=== PATIENT | female | born 1960 | race Caucasian/White ===

== ENCOUNTER 2016-08-28 15:52 | Emergency (ER) | payer MEDICARE, MEDICAID ==
--- NOTE | 2016-08-28 16:02 | ER Document Report ---
ED Medical Screen (RME) - General Stated Complaint: RIB PAIN Notes: Patient presents to the emergency department with complaints of left-sided rib pain. Patient reports she bent over last week and felt something. Since then she's had pain increasing. No other symptoms such as fever vomiting diarrhea. Reports some nausea. Reports hx of mini stroke. I have greeted and performed a rapid initial assessment of this patient. A comprehensive ED assessment and evaluation of the patient, analysis of test results and completion of the medical decision making process will be conducted by additional ED providers. TRAVEL OUTSIDE OF THE [place] IN LAST 30 DAYS: No - Related Data Allergies/Adverse Reactions: Penicillins Allergy (Mild, Verified 01/15/16 19:03) Rash aspirin [Aspirin] Allergy (Verified 01/15/16 19:03) pentazocine HCl [From Talwin Compound] Allergy (Verified 01/15/16 19:03) Tetanus Vaccines and Toxoid [Tetanus] Allergy (Verified 01/15/16 19:03) Past Medical History - Past Medical History Cardiac Medical History: Reports: Hx Hypertension Neurological Medical History: Reports: Hx Cerebrovascular Accident, Hx Migraine Endocrine Medical History: Reports: Hx Hypothyroidism Renal/ Medical History: Reports: Hx Ovarian Cysts Musculoskeltal Medical History: Reports Hx Arthritis Psychiatric Medical History: Reports: Hx Depression Past Surgical History: Reports: Hx Section, Hx Gastric Bypass Surgery, Hx Genitourinary Surgery - gastric bypass, Hx Hysterectomy - Immunizations Hx Diphtheria, Pertussis, Tetanus Vaccination: No
[2016-08-28] MEDS ORDERED: MORPHINE SULFATE 10 MG/ML INJ IV ONE (16:40)
[2016-08-28] MEDS ORDERED: FAMOTIDINE INJ/PF 20 MG/2 ML SDV IV ONE (16:40)
--- NOTE | 2016-08-28 16:44 | ER Document Report ---
ED Cardiac - General Chief Complaint: Rib Pain Stated Complaint: RIB PAIN Notes: The patient is a 56-year-old female, past medical history hypertension, gastric bypass, presents with 3 days of left lower chest wall pain and left upper quadrant abdominal pain that started after she bent over to lift a heavy object , stood up and felt a pop. She has never had this before and she says that the pain is worse when she presses the area or moves. She denies nausea, vomiting, back pain, shortness of breath, fevers, rash, leg swelling or headache. TRAVEL OUTSIDE OF THE [place] IN LAST 30 DAYS: No - Related Data Allergies/Adverse Reactions: Penicillins Allergy (Mild, Verified 01/15/16 19:03) Rash aspirin [Aspirin] Allergy (Verified 01/15/16 19:03) pentazocine HCl [From Talwin Compound] Allergy (Verified 01/15/16 19:03) Tetanus Vaccines and Toxoid [Tetanus] Allergy (Verified 01/15/16 19:03) Past Medical History - General Information source: Patient - Social History Smoking Status: Current Every Day Smoker Chew tobacco use (# tins/day): No Frequency of alcohol use: None Drug Abuse: None Family History: Arthritis, CAD, DM, Hypertension, Other - No TIAs. denies: CVA Patient has suicidal ideation: No Patient has homicidal ideation: No - Past Medical History Cardiac Medical History: Reports: Hx Hypertension Neurological Medical History: Reports: Hx Cerebrovascular Accident, Hx Migraine Endocrine Medical History: Reports: Hx Hypothyroidism Renal/ Medical History: Reports: Hx Ovarian Cysts. Denies: Hx Peritoneal Dialysis Musculoskeltal Medical History: Reports Hx Arthritis Psychiatric Medical History: Reports: Hx Depression Past Surgical History: Reports: Hx Section, Hx Gastric Bypass Surgery, Hx Genitourinary Surgery - gastric bypass, Hx Hysterectomy - Immunizations Hx Diphtheria, Pertussis, Tetanus Vaccination: No Review of Systems - Review of Systems Notes: REVIEW OF SYSTEMS: CONSTITUTIONAL: -fevers, -chills EENT: -eye pain, -difficulty swallowing, -nasal congestion CARDIOVASCULAR: +chest pain, -syncope. RESPIRATORY: -cough, -SOB GASTROINTESTINAL: +abdominal pain, -nausea, -vomiting, -diarrhea GENITOURINARY: -dysuria, -hematuria MUSCULOSKELETAL: -back pain, -neck pain SKIN: -rash or skin lesions. HEMATOLOGIC: -easy bruising or bleeding. LYMPHATIC: -swollen, enlarged glands. NEUROLOGICAL: -altered mental status or loss of consciousness, -headache, - neurologic symptoms PSYCHIATRIC: -anxiety, -depression. ALL OTHER SYSTEMS REVIEWED AND NEGATIVE. Physical Exam - Vital signs Vitals: Temp Pulse Resp BP Pulse Ox 98.4 F 103 H 20 169/82 H 96 08/28/16 15:57 08/28/16 15:57 08/28/16 15:57 08/28/16 15:57 08/28/16 15:57 - Notes Notes: PHYSICAL EXAMINATION: GENERAL: In mild distress. HEAD: Atraumatic, normocephalic. EYES: Pupils equal round and reactive to light, extraocular movements intact, sclera anicteric, conjunctiva are normal. ENT: nares patent, oropharynx clear without exudates. Moist mucous membranes. NECK: Normal range of motion, supple without lymphadenopathy LUNGS: Breath sounds clear to auscultation bilaterally and equal. No wheezes rales or rhonchi. HEART: Tenderness over left anterior lower chest wall. Regular rate and rhythm without murmurs ABDOMEN: Mild LUQ tenderness. Soft, normoactive bowel sounds. No guarding, no rebound. No masses appreciated. EXTREMITIES: Normal range of motion, no pitting or edema. No cyanosis. NEUROLOGICAL: Cranial nerves grossly intact. Normal speech, normal gait. Normal sensory, motor, and reflex exams. PSYCH: Normal mood, normal affect. SKIN: Warm, Dry, normal turgor, no rashes or lesions noted. Course - Re-evaluation Re-evalutation: Patient with left chest wall and left upper abdominal tenderness. Chest x-ray, EKG and labs are all unremarkable. 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 This is most likely chronic in nature. Primary care physician's notes indicated that he is following her for this. Patient's pain under control. We will discharge home with Lidocaine patches and f/u at her PMD. - Vital Signs Vital signs: Temp Pulse Resp BP Pulse Ox 98.4 F 103 H 20 169/82 H 96 08/28/16 15:57 08/28/16 15:57 08/28/16 15:57 08/28/16 15:57 08/28/16 15:57 - Laboratory Result Diagrams: 08/28/16 18:45 08/28/16 18:45 Laboratory results interpreted by me: 08/28/16 08/28/16 18:45 18:45 Hgb 8.8 L Hct 29.8 L MCV 68 L MCH 20.1 L MCHC 29.4 L RDW 17.6 H Chloride 109 H - EKG Interpretation by Me EKG shows normal: Sinus rhythm, [place], Intervals, QRS Complexes, ST-T Waves Discharge - Discharge Clinical Impression: Muscle strain Chest pain Qualifiers: Chest pain type: unspecified Qualified Code(s): R07.9 - Chest pain, unspecified Condition: Stable Disposition: HOME, SELF-CARE Additional Instructions: CHEST PAIN OF UNCLEAR CAUSE: The exact cause of your chest pain isn't clear. Fortunately, there is no evidence of a dangerous medical condition. Further testing may be required to find the source of the pain. Most often, we find that this pain is coming from the chest wall -- the muscles or rib joints in the chest. But chest pain can come from the lung and lung lining, the esophagus, the heart valves or heart lining, and even the stomach or gallbladder. Rest. Eat lightly until the pain is gone. We may prescribe medicine for pain and inflammation. You should call the physician immediately if the pain radiates to the shoulder, jaw or arms; if you start to run a fever or develop a cough; or if you develop shortness of breath, or other new or alarming symptoms. NORMAL EXAM AND WORKUP: At this time, your examination and workup show no significant abnormality. No significant abnormal physical findings were noted. All laboratory, EKG, and imaging (x-ray, CT scans, ultrasound) studies that were ordered show no significant abnormality. Although your examination and all studies that were ordered showed no significant abnormal finding, there are no examinations and no studies that are 100% accurate. There is always the possibility that some abnormality could exist and not be detected with physical examination or within the limits and capabilities of laboratory and other studies. You should return or follow up as you were instructed on your visit today for further evaluation if your symptoms do not resolve. CHEST WALL PAIN: Your chest pain may be coming from the chest wall. This is often caused by straining the muscles or joints in the chest during physical activity, direct trauma, coughing, or vigorous vomiting. Persons with arthritis are especially prone to this type of pain, due to inflammation of the cartilage joints near the breast bone. Occasionally, no cause can be found. Rest from strenuous physical activity. This kind of chest pain is usually made worse by movement of the chest. Depending on the symptoms, we may prescribe medicine for pain, muscle relaxation, and antiinflammatory effects. If the pain is new, and seems to be due to muscle strain, cold packs can help. Otherwise, apply gentle warmth to the painful area for 15 minutes every hour or two. You should call contact the doctor immediately if things change. Further evaluation is needed if you develop a fever or cough, if the nature of the pain changes, or if you become short of breath. ANGINA EPISODE: Your physician has diagnosed the pain you experienced as an episode of angina. Angina occurs when a portion of the heart muscle temporarily lacks oxygen. It does not cause any permanent heart damage, but serves as a warning. Hospitalization is not necessary now. Evaluation of your cardiac condition , and medical therapy for angina will be necessary. It's important you be sure to keep all appointments and take medication exactly as prescribed. Angina is usually treated with a type of "nitrate" medication. This is available as ointment, pills, or sublingual (under the tongue) tablets. Depending on your clinical situation, other medications may be added to help control angina. These may include beta blockers or calcium blockers. If episodes of angina are occurring with increased frequency, or if chest pain lasts longer than 15 minutes or does not respond to nitroglycerin, you must seek emergency medical care immediately. ACID REFLUX DISEASE (GERD): Gastro-Esophageal Reflux Disease (GERD) is caused by stomach acid refluxing back up into the esophagus. The valve at the end of the esophagus may be weak. This is common in persons with a hiatal hernia. GERD symptoms can include indigestion, chest pain, heartburn, or food "sticking." Certain foods, alcohol, and aspirin can make GERD worse. Treatment depends on the severity. Usually, antacids or acid-suppressing medicines are used. When the esophagus is acutely inflamed, the physician will often prescribe membrane-protective drugs such as Carafate. Some patients benefit from medication such as Reglan that tightens the valve at the top of the stomach. Avoid those foods that bring on your symptoms. For many people, these foods are coffee, chocolate, onions, garlic, and carbonated drinks. Don't use alcohol, aspirin, caffeine, or tobacco. Don't eat late at night -- within 4 hours of bedtime. Don't over-eat. If necessary, elevate the head of your bed about 4 inches so that stomach acid will not roll up into your esophagus. Call the doctor if you develop severe chest pain, inability to swallow fluids, fever, or worsening symptoms. PRILOSEC (ACID PUMP INHIBITOR): Prilosec (omeprazole) is an acid-pump inhibitor. It blocks the secretion of hydrogen ions in the acid-producing cells of the stomach. Prilosec keeps your stomach from making acid. Take all medication as prescribed, even after the pain is gone. Regular antacids may be added as needed if you have symptoms while taking this medicine. There are usually no side effects from this medication. Contact your doctor if there is fever, rash, yellow skin color, increasing abdominal pain, weakness, or unusual bruising. Return at once if you develop lightheadedness, black or bloody stool, or bloody vomitus. FOLLOW-UP CARE: If you have been referred to a physician for follow-up care, call the physician s office for an appointment as you were instructed or within the next two days. If you experience worsening or a significant change in your symptoms, notify the physician immediately or return to the Emergency Department at any time for re-evaluation. Prescriptions: Lidocaine [Lidoderm 5% (700 mg) Transdermal Patch] 1 patch TP DAILY #10 adh..patch Forms: Elevated Blood Pressure Referrals: NO JERONIMO MD [Primary Care Provider] - Follow up as needed
[2016-08-28 18:58] LABS: ABSOLUTE EOSINOPHILS # (AUTO) 0.1 10^3/uL (0.0-0.6); ABSOLUTE LYMPHOCYTES (AUTO) 1.6 10^3/uL (0.5-4.7); ABSOLUTE MONOCYTES (AUTO) 0.5 10^3/uL (0.1-1.4); ABSOLUTE NEUT (AUTO) 4.9 10^3/uL (1.7-8.2); BASOPHILS % (AUTO) 0.5 % (0-2); EOSINOPHILS % (AUTO) 1.1 % (0-6); HEMATOCRIT 29.8 % (36.0-47.0); HEMOGLOBIN 8.8 g/dL (12.0-15.5); HGB HCT DIFFERENCE -3.4; LYMPHOCYTES % (AUTO) 22.3 % (13-45); MEAN CORPUSCULAR HEMOGLOBIN 20.1 pg (27.0-33.4); MEAN CORPUSCULAR HGB CONC 29.4 g/dL (32.0-36.0); MEAN CORPUSCULAR VOLUME 68 fl (80-97); RED BLOOD COUNT 4.37 10^6/uL (3.72-5.28); RED CELL DISTRIBUTION WIDTH 17.6 % (11.5-14.0); SEGMENTED NEUTROPHILS % (AUTO) 69.1 % (42-78); WHITE BLOOD COUNT 7.2 10^3/uL (4.0-10.5)
[2016-08-28 19:14] LABS: ALANINE AMINOTRANSFERASE 20 U/L (9-52); ALKALINE PHOSPHATASE 115 U/L (38-126); ANION GAP 8 (5-19); ASPARTATE AMINO TRANSFERASE 19 U/L (14-36); BILIRUBIN,TOTAL 0.3 mg/dL (0.2-1.3); BLOOD UREA NITROGEN 15 mg/dL (7-20); CALCIUM 9.3 mg/dL (8.4-10.2); CARBON DIOXIDE 24 mmol/L (22-30); CHLORIDE 109 mmol/L (98-107); CREATINE KINASE 60 U/L (30-135); CREATININE RESULT 0.85 mg/dL (0.52-1.25); GLUCOSE 79 mg/dL (75-110); LIPASE 101.9 U/L (23-300); POTASSIUM 4.6 mmol/L (3.6-5.0); SODIUM 141.2 mmol/L (137-145); TOTAL PROTEIN 6.8 g/dL (6.3-8.2)
--- NOTE | 2016-08-28 21:33 | EKG REPORT ---
SEVERITY:- NORMAL ECG - SINUS RHYTHM : Confirmed by: Estrada Gonzalez 28-Aug-2016 21:32:37
[2016-08-28 22:46] VITALS: BP 156/88
== END 2016-08-28 20:01 | disposition home or self-care (01) ==
LOC: ER 15:52
DX: S29.011A Strain of muscle and tendon of front wall of thorax, initial encounter (principal); R07.81 Pleurodynia; X50.0XXA Overexertion from strenuous movement or load, initial encounter; I10 Essential (primary) hypertension; E03.9 Hypothyroidism, unspecified; Z86.73 Personal history of transient ischemic attack (TIA), and cerebral infarction without residual deficits; Z98.84 Bariatric surgery status; Z90.710 Acquired absence of both cervix and uterus; Z88.0 Allergy status to penicillin; Z88.6 Allergy status to analgesic agent; Z88.7 Allergy status to serum and vaccine
CPT/HCPCS: 93005; 99283; 36415; 82550; 83690; 85025; 80053; 84484; 71101; 93010; J2270; S0028

== ENCOUNTER 2016-09-28 20:31 | Emergency (ER) | payer MEDICARE, MEDICAID ==
[2016-09-28] MEDS ORDERED: HYDROCODONE/ACETAMINOPHEN 5-325 MG 6 TAB/DSPK PO PRN (23:38)
--- NOTE | 2016-09-28 23:39 | ER Document Report ---
ED General - General Chief Complaint: Rib Pain Stated Complaint: LEFT SIDE RIB PAIN Notes: Patient is a pleasant 56-year-old female who presents with complaint of pain over her left ribs. Patient says first dose of pain several days ago which picked up her granddaughter. She continued to ER and evaluate. Pain went away. Tonight she was lying with her daughter. She felt a pop over her left ribs. She was unsure what the pop was therefore came to the ER. No fevers. No pneumonia. No difficulty breathing. No other complaints at this time. No abdominal pain. TRAVEL OUTSIDE OF THE [place] IN LAST 30 DAYS: No - Related Data Allergies/Adverse Reactions: Penicillins Allergy (Mild, Verified 01/15/16 19:03) Rash aspirin [Aspirin] Allergy (Verified 01/15/16 19:03) pentazocine HCl [From Talwin Compound] Allergy (Verified 01/15/16 19:03) Tetanus Vaccines and Toxoid [Tetanus] Allergy (Verified 01/15/16 19:03) Past Medical History - Social History Smoking Status: Unknown if Ever Smoked Frequency of alcohol use: None Drug Abuse: None Family History: Arthritis, CAD, DM, Hypertension, Other - No TIAs. denies: CVA Patient has suicidal ideation: No Patient has homicidal ideation: No - Past Medical History Cardiac Medical History: Reports: Hx Hypertension Neurological Medical History: Reports: Hx Cerebrovascular Accident, Hx Migraine Endocrine Medical History: Reports: Hx Hypothyroidism Renal/ Medical History: Reports: Hx Ovarian Cysts. Denies: Hx Peritoneal Dialysis Musculoskeltal Medical History: Reports Hx Arthritis Psychiatric Medical History: Reports: Hx Depression Past Surgical History: Reports: Hx Section, Hx Gastric Bypass Surgery, Hx Genitourinary Surgery - gastric bypass, Hx Hysterectomy - Immunizations Hx Diphtheria, Pertussis, Tetanus Vaccination: No Review of Systems - Review of Systems Notes: My Normal Review Basic REVIEW OF SYSTEMS: CONSTITUTIONAL : Denies fever, chills, or sweats. Denies recent illness. EENT: Denies eye, ear, throat, or mouth pain or symptoms. Denies nasal or sinus congestion. CARDIOVASCULAR: Left rib pain. No anterior chest pain RESPIRATORY: Denies cough, cold, or chest congestion. Denies shortness of breath, difficulty breathing, or wheezing. GASTROINTESTINAL: Denies abdominal pain. Denies nausea, vomiting, or diarrhea. Denies constipation. Last BM: MUSCULOSKELETAL: Denies neck or back pain or joint pain or swelling. SKIN: Denies rash or skin lesions. HEMATOLOGIC : Denies easy bruising or bleeding. NEUROLOGICAL: Denies altered mental status or loss of consciousness. ALL OTHER SYSTEMS REVIEWED AND NEGATIVE. Physical Exam - Vital signs Vitals: Temp Pulse BP Pulse Ox 99.0 F 87 133/86 H 99 09/28/16 20:48 09/28/16 20:48 09/28/16 20:48 09/28/16 20:48 - Notes Notes: General Appearance: Well nourished, alert, cooperative, no acute distress, mild to moderate obvious discomfort. Well-appearing. Vitals: reviewed, See vital signs table. Eyes: PERRL, EOMI, Conjuctiva clear Mouth: No decreasd moisture Lungs: No wheezing, No rales, No rhonci, No accessory muscle use, good air exchange bilaterally. Chest wall: Patient has very pinpoint tenderness over the left lateral chest wall over approximately rib 10. There is very easily reproducible with palpation as well as movement. Heart: Normal rate, Regular rythm, No murmur, no rub Abdomen: Normal BS, soft, No rigidity, No abdominal tenderness, No guarding, no rebound, no abdominal masses, no organomegaly Skin: warm, dry, appropriate color, no rash Neuro: speech clear, oriented x 3, normal affect, responds appropriately to questions. Course - Vital Signs Vital signs: Temp Pulse Resp BP Pulse Ox 97.6 F 70 18 143/85 H 99 09/29/16 00:33 09/29/16 00:33 09/29/16 00:33 09/29/16 00:33 09/29/16 00:33 - Transfer of Care Notes: 09/29/16 04:41 Patient has history and findings consistent with recurrent subluxation of her rib. She will be be given an incentive spirometer to help make sure she is not of pneumonia. She's encouraged take pain patient only if the pain is severe. She's encouraged to return to ER immediately if she has fevers, difficulty breathing, or feels unwell. Patient agrees with plan and will be discharged home. Dictation of this chart was performed using voice recognition software; therefore, there may be some unintended grammatical errors. Discharge - Discharge Clinical Impression: Rib pain on left side Condition: Good Disposition: HOME, SELF-CARE Instructions: Oral Narcotic Medication ([facility]) Additional Instructions: Rib Injuries and Fractures You have been diagnosed as having rib injury. It will usually take four to six weeks for these injured ribs to heal. Sometimes, rib belts or anesthetic injections of the chest wall help reduce the pain. If you are using a rib belt, you should cough or take a deep breath at least every hour or two to prevent lung complications. You should not engage in any strenuous physical activity until released by your physician. The usual rule is "if it hurts, don't do it." Rib pain can lead to pneumonia. You should call the physician or return at once if any of the following occur: (1) Fever or chills. (2) Persistent cough, coughing up blood, or shortness of breath. (3) Increasing pain. (4) Weakness, lightheadedness, or fainting. Please use the incentive spirometer to take in deep breaths every 30 minutes. Please return to the ER immediately if you have fevers, difficulty breathing, or feel unwell. Prescriptions: Hydrocodone/Acetaminophen [[place] 5-325 mg Tablet] 1 tab PO Q4 PRN #12 tablet PRN Reason: For Breakthrough Pain Forms: Return to Work
[2016-09-29 00:35] VITALS: BP 143/85
== END 2016-09-28 23:50 | disposition home or self-care (01) ==
LOC: ER 20:31
DX: R07.81 Pleurodynia (principal); E03.9 Hypothyroidism, unspecified; I10 Essential (primary) hypertension; Z88.0 Allergy status to penicillin; Z88.6 Allergy status to analgesic agent; Z88.7 Allergy status to serum and vaccine; Z86.73 Personal history of transient ischemic attack (TIA), and cerebral infarction without residual deficits; Z98.84 Bariatric surgery status; Z90.710 Acquired absence of both cervix and uterus
CPT/HCPCS: 99283; 71101; A9270

== ENCOUNTER 2017-01-25 14:31 | Emergency (ER) | payer MEDICARE, MEDICAID ==
[2017-01-25 14:40] VITALS: BP 144/88
--- NOTE | 2017-01-25 15:17 | ER Document Report ---
ED Medical Screen (RME) - General Chief Complaint: Arm Pain Stated Complaint: LEFT ARM PAIN Time Seen by Provider: 01/25/17 15:16 Notes: Patient says that she suddenly experienced a "heaviness and numbness" of the left upper arm about an hour ago. She was just sitting when it happened. She says that she is able to move the arm and does not have any loss of function, just feels numb and heavy. Patient says that she has had this problem off and on for the past month and in fact, had some problems like this about 3 or 4 years ago and was worked up including having what she describes as an ultrasound of the neck that showed the problem. However, nothing was ever done for this condition. She denies any chest pains. Denies shortness of breath. Denies fevers. PMH: Gastric bypass 2000, hysterectomy, hemorrhoids, hypertension, anemia, no heart disease. TRAVEL OUTSIDE OF THE [place] IN LAST 30 DAYS: No - Related Data Allergies/Adverse Reactions: Penicillins Allergy (Mild, Verified 01/25/17 14:37) Rash aspirin [Aspirin] Allergy (Verified 01/25/17 14:37) pentazocine HCl [From Talwin Compound] Allergy (Verified 01/25/17 14:37) Tetanus Vaccines and Toxoid [Tetanus] Allergy (Verified 01/25/17 14:37) Past Medical History - Social History Chew tobacco use (# tins/day): No Frequency of alcohol use: None Drug Abuse: None - Past Medical History Cardiac Medical History: Reports: Hx Hypertension Neurological Medical History: Reports: Hx Cerebrovascular Accident, Hx Migraine Endocrine Medical History: Reports: Hx Hypothyroidism Renal/ Medical History: Reports: Hx Ovarian Cysts. Denies: Hx Peritoneal Dialysis Musculoskeltal Medical History: Reports Hx Arthritis Psychiatric Medical History: Reports: Hx Depression Past Surgical History: Reports: Hx Section, Hx Gastric Bypass Surgery, Hx Genitourinary Surgery - gastric bypass, Hx Hysterectomy - Immunizations Hx Diphtheria, Pertussis, Tetanus Vaccination: No Physical Exam - Vital signs Vitals: Temp Pulse Resp BP Pulse Ox 98.5 F 85 22 H 144/88 H 99 01/25/17 14:37 01/25/17 14:37 01/25/17 14:37 01/25/17 14:37 01/25/17 14:37 Course - Vital Signs Vital signs: Temp Pulse Resp BP Pulse Ox 98.5 F 85 22 H 144/88 H 99 01/25/17 14:37 01/25/17 14:37 01/25/17 14:37 01/25/17 14:37 01/25/17 14:37
--- NOTE | 2017-01-25 16:06 | RADIOLOGY REPORT (SQ) ---
EXAM DESCRIPTION: CHEST PA/LAT COMPLETED DATE/TIME: 01/25/2017 3:56 pm REASON FOR STUDY: Left arm pain COMPARISON: None. EXAM PARAMETERS: NUMBER OF VIEWS: two views TECHNIQUE: Digital Frontal and Lateral radiographic views of the chest acquired. RADIATION DOSE: NA LIMITATIONS: none FINDINGS: LUNGS AND PLEURA: No opacities, masses or pneumothorax. No pleural effusion. There is ill -defined increased density in the left lower hemithorax which appears represent confluent densities o f overlapping ribs and vascular structures. A shallow oblique view of the chest is recommended for c onfirmation if clinically warranted MEDIASTINUM AND HILAR STRUCTURES: No masses or contour abnormalities. HEART AND VASCULAR STRUCTURES: Heart normal size. No evidence for failure. BONES: No acute findings. HARDWARE: None in the chest. OTHER: No other significant finding. IMPRESSION: Ill-defined increased density in the left lower hemithorax is noted above which appears to represent confluent densities as noted above. No acute consolidations or pleural effusions are id entified. Other findings as noted above TECHNICAL DOCUMENTATION: JOB ID: [id number] [employer]- All Rights Reserved
[2017-01-25 16:07] LABS: ABSOLUTE BASOPHILS # (AUTO) 0.1 10^3/uL (0.0-0.2); ABSOLUTE EOSINOPHILS # (AUTO) 0.1 10^3/uL (0.0-0.6); ABSOLUTE LYMPHOCYTES (AUTO) 1.8 10^3/uL (0.5-4.7); ABSOLUTE MONOCYTES (AUTO) 0.5 10^3/uL (0.1-1.4); ABSOLUTE NEUT (AUTO) 4.8 10^3/uL (1.7-8.2); BASOPHILS % (AUTO) 0.9 % (0-2); EOSINOPHILS % (AUTO) 1.7 % (0-6); HEMATOCRIT 36.3 % (36.0-47.0); HEMOGLOBIN 10.9 g/dL (12.0-15.5); HGB HCT DIFFERENCE -3.6; LYMPHOCYTES % (AUTO) 24.6 % (13-45); MEAN CORPUSCULAR HEMOGLOBIN 21.5 pg (27.0-33.4); MEAN CORPUSCULAR HGB CONC 29.9 g/dL (32.0-36.0); MEAN CORPUSCULAR VOLUME 72 fl (80-97); MONOCYTES % (AUTO) 6.2 % (3-13); RED BLOOD COUNT 5.06 10^6/uL (3.72-5.28); RED CELL DISTRIBUTION WIDTH 20.1 % (11.5-14.0); SEGMENTED NEUTROPHILS % (AUTO) 66.6 % (42-78); WHITE BLOOD COUNT 7.3 10^3/uL (4.0-10.5)
[2017-01-25 16:24] LABS: ALANINE AMINOTRANSFERASE 24 U/L (9-52); ALBUMIN 4.9 g/dL (3.5-5.0); ALKALINE PHOSPHATASE 96 U/L (38-126); ANION GAP 14 (5-19); ASPARTATE AMINO TRANSFERASE 38 U/L (14-36); BILIRUBIN,DIRECT 0.5 mg/dL (0.0-0.4); BILIRUBIN,TOTAL 0.5 mg/dL (0.2-1.3); BLOOD UREA NITROGEN 17 mg/dL (7-20); CALCIUM 9.6 mg/dL (8.4-10.2); CARBON DIOXIDE 25 mmol/L (22-30); CHLORIDE 102 mmol/L (98-107); CREATINE KINASE 120 U/L (30-135); CREATININE RESULT 0.92 mg/dL (0.52-1.25); GLUCOSE 94 mg/dL (75-110); POTASSIUM 3.9 mmol/L (3.6-5.0); SODIUM 140.5 mmol/L (137-145); TOTAL PROTEIN 8.4 g/dL (6.3-8.2)
[2017-01-25 16:35] LABS: CREATINE KINASE MB 0.91 ng/mL (<4.55)
[2017-01-25 16:36] LABS: TROPONIN I < 0.012 ng/mL
--- NOTE | 2017-01-25 17:25 | ER Document Report ---
ED Extremity Problem, Upper - General Mode of Arrival: Ambulatory Information source: Patient TRAVEL OUTSIDE OF THE [place] IN LAST 30 DAYS: No - HPI Patient complains to provider of: Left, Arm. No: Pain Quality of pain: No pain Associated symptoms: Other - see above <AMBREEN GONZALES - Last Filed: 01/25/17 17:47> <ANAT BUCHANAN - Last Filed: 01/25/17 19:40> - General Chief Complaint: Arm Pain Stated Complaint: LEFT ARM PAIN Time Seen by Provider: 01/25/17 15:16 Notes: Patient is a 57 year old female who presents to the ED with complaints of left arm numbness with onset a few months. Patient denies difficulty moving it. Patient states sometimes she has to pick it up to move it because it is heavy feeling. Patient states nothing is new today. Patient states that she has a PCP but she has not talked to him about this problem. Patient states that her arm does not hurt. Patient states she does have pain in her back and she was told by a doctor that she has scoliosis. Patient denies any shoulder pain. (AMBREEN GONZALES) - Related Data Allergies/Adverse Reactions: Penicillins Allergy (Mild, Verified 01/25/17 14:37) Rash aspirin [Aspirin] Allergy (Verified 01/25/17 14:37) pentazocine HCl [From Talwin Compound] Allergy (Verified 01/25/17 14:37) Tetanus Vaccines and Toxoid [Tetanus] Allergy (Verified 01/25/17 14:37) Home Medications: Current Home Medications Clonidine HCl 0.1 mg PO BID 01/25/17 [History] Losartan/Hydrochlorothiazide [Hyzaar 100-25 Tablet] 1 tab PO DAILY 01/25/17 [ History] Past Medical History - General Information source: Patient - Social History Smoking Status: Current Every Day Smoker Chew tobacco use (# tins/day): No Frequency of alcohol use: None Drug Abuse: None Family History: Arthritis, CAD, DM, Hypertension, Other - No TIAs. denies: CVA Patient has suicidal ideation: No Patient has homicidal ideation: No - Past Medical History Cardiac Medical History: Reports: Hx Hypertension Neurological Medical History: Reports: Hx Cerebrovascular Accident, Hx Migraine Endocrine Medical History: Reports: Hx Hypothyroidism Renal/ Medical History: Reports: Hx Ovarian Cysts. Denies: Hx Peritoneal Dialysis Musculoskeltal Medical History: Reports Hx Arthritis Psychiatric Medical History: Reports: Hx Depression Past Surgical History: Reports: Hx Section, Hx Gastric Bypass Surgery, Hx Genitourinary Surgery - gastric bypass, Hx Hysterectomy - Immunizations Hx Diphtheria, Pertussis, Tetanus Vaccination: No <CHRISTIANAMBREEN - Last Filed: 01/25/17 17:47> Review of Systems - Review of Systems Constitutional: No symptoms reported EENT: No symptoms reported Cardiovascular: No symptoms reported Respiratory: No symptoms reported Gastrointestinal: No symptoms reported Genitourinary: No symptoms reported Female Genitourinary: No symptoms reported Musculoskeletal: See HPI, Back pain. denies: Other - no pain in left arm or shoulder Skin: No symptoms reported Hematologic/Lymphatic: No symptoms reported Neurological/Psychological: See HPI, Numbness - left arm <AMBREEN GONZALES - Last Filed: 01/25/17 17:47> Physical Exam - General General appearance: Appears well, Alert In distress: None - HEENT Head: Normocephalic, Atraumatic Eyes: Normal Extraocular movements intact: Yes Pupils: PERRL - Respiratory Respiratory status: No respiratory distress Breath sounds: Normal - Cardiovascular Rhythm: Regular Heart sounds: Normal auscultation Murmur: No - Abdominal Inspection: Normal - Back Back: Normal - Extremities General upper extremity: Normal ROM, Normal strength, Other - altered light touch to posterior left tricep area, reproducible symptoms by palpation of left axilla General lower extremity: Normal inspection, Normal ROM - Neurological Neuro grossly intact: Yes Motor strength normal: LUE, RUE - Psychological Associated symptoms: Normal affect, Normal mood - Skin Skin Temperature: Warm Skin Moisture: Dry Skin Color: Normal <AMBREEN GONZALES - Last Filed: 01/25/17 17:47> Course - Laboratory Result Diagrams: 01/25/17 15:39 01/25/17 15:39 <AMBREEN GONZALES - Last Filed: 01/25/17 17:47> - Laboratory Result Diagrams: 01/25/17 15:39 01/25/17 15:39 - Diagnostic Test Radiology reviewed: Reports reviewed - EKG Interpretation by Nd EKG shows normal: Sinus rhythm Rate: Normal Rhythm: NSR <ANAT BUCHANAN - Last Filed: 01/25/17 19:40> - Re-evaluation Re-evalutation: 01/25/17 Has had the symptoms for a few months. They are not worse today. Reproducible. No weakness. No other symptoms associated. I have looked back at the patient's workup. MRI with no acute findings previously. Patient is to follow-up with her doctor who if she is not informed of her symptoms. Stable for discharge. Return if any worsening or concerning symptoms. (ANAT BUCHANAN) - Vital Signs Vital signs: Temp Pulse Resp BP Pulse Ox 98.5 F 85 22 H 144/88 H 99 01/25/17 14:37 01/25/17 14:37 01/25/17 14:37 01/25/17 14:37 01/25/17 14:37 - Laboratory Laboratory results interpreted by me: 01/25/17 01/25/17 15:39 15:39 Hgb 10.9 L MCV 72 L MCH 21.5 L MCHC 29.9 L RDW 20.1 H Direct Bilirubin 0.5 H AST 38 H Total Protein 8.4 H Discharge <AMBREEN GONZALES - Last Filed: 01/25/17 17:47> <ANAT BUCHANAN - Last Filed: 01/25/17 19:40> - Discharge Clinical Impression: Paresthesia of left arm Condition: Stable Disposition: HOME, SELF-CARE Instructions: Numbness or Paresthesia ([facility]) Additional Instructions: Please discussed with sensation you are having with your primary care doctor as it appears to be a peripheral neuropathy. Please return if you have any concerning symptoms or weakness. Forms: Return to Work Referrals: NO JERONIMO MD [Primary Care Provider] - Follow up in 1 week Scribe Attestation: 01/25/17 19:40 I personally performed the services described in the documentation, reviewed and edited the documentation which was dictated to the scribe in my presence, and it accurately records my words and actions. (ANAT BUCHANAN) Scribe Documentation - Scribe Written by Jose R:: jose r Stiles, 01/25/2017, [id number] acting as scribe for :: Kassidy <AMBREEN GONZALES - Last Filed: 01/25/17 17:47>
--- NOTE | 2017-01-26 12:50 | EKG REPORT ---
SEVERITY:- BORDERLINE ECG - SINUS RHYTHM BORDERLINE T ABNORMALITIES, LATERAL LEADS : Confirmed by: Estrada Gonzalez 26-Jan-2017 12:48:40
== END 2017-01-25 18:04 | disposition home or self-care (01) ==
LOC: ER 14:31
DX: R20.0 Anesthesia of skin (principal); M54.9 Dorsalgia, unspecified; I10 Essential (primary) hypertension; F17.200 Nicotine dependence, unspecified, uncomplicated; Z88.0 Allergy status to penicillin; Z88.6 Allergy status to analgesic agent; Z88.5 Allergy status to narcotic agent; Z88.7 Allergy status to serum and vaccine; Z82.49 Family history of ischemic heart disease and other diseases of the circulatory system
CPT/HCPCS: 36415; 71020; 80053; 82550; 82553; 84484; 85025; 93005; 93010; 99284

== ENCOUNTER 2017-06-27 14:34 | Emergency (ER) | payer MEDICARE, MEDICAID ==
--- NOTE | 2017-06-27 16:23 | ER Document Report ---
HPI - HPI Patient complains to provider of: skin rash Onset: Other - 5 days Onset/Duration: Persistent Quality of pain: No pain Pain Level: Denies Context: Patient presents with 5 day history of skin rash that is pruritic in nature. Patient denies any new foods, medications or detergents. Patient denies any recent travel. Patient denies any fever. Associated Symptoms: Other - skin rash Exacerbated by: Denies Relieved by: Denies Similar symptoms previously: No Recently seen / treated by doctor: No - ROS ROS below otherwise negative: Yes Systems Reviewed and Negative: Yes All other systems reviewed and negative - CONSTITUTIONAL Constitutional: DENIES: Fever, Chills - NEURO Neurology: DENIES: Headache - GASTROINTESTINAL Gastrointestinal: DENIES: Nausea, Patient vomiting - REPRODUCTIVE Reproductive: DENIES: : - DERM Skin Problems: Rash Past Medical History - General Information source: Patient - Social History Smoking Status: Current Every Day Smoker Chew tobacco use (# tins/day): No Smoking Education Provided: Yes Frequency of alcohol use: None Drug Abuse: None Occupation: retail Lives with: Family Family History: Arthritis, CAD, DM, Hypertension, Other - No TIAs. denies: CVA Patient has suicidal ideation: No Patient has homicidal ideation: No - Past Medical History Cardiac Medical History: Reports: Hx Hypertension Neurological Medical History: Reports: Hx Cerebrovascular Accident, Hx Migraine Endocrine Medical History: Reports: Hx Hypothyroidism Renal/ Medical History: Reports: Hx Ovarian Cysts. Denies: Hx Peritoneal Dialysis Musculoskeltal Medical History: Reports Hx Arthritis Psychiatric Medical History: Reports: Hx Depression Past Surgical History: Reports: Hx Section, Hx Gastric Bypass Surgery, Hx Genitourinary Surgery - gastric bypass, Hx Hysterectomy - Immunizations Hx Diphtheria, Pertussis, Tetanus Vaccination: No Vertical Provider Document - CONSTITUTIONAL Agree With Documented VS: Yes Exam Limitations: No Limitations General Appearance: WD/WN, No Apparent Distress - INFECTION CONTROL TRAVEL OUTSIDE OF THE [place] IN LAST 30 DAYS: No - HEENT HEENT: Atraumatic, Normal ENT Exam, Normocephalic - NECK Neck: Normal Inspection, Supple. negative: Lymphadenopathy-Left, Lymphadenopathy-Right - RESPIRATORY Respiratory: Breath Sounds Normal, No Respiratory Distress O2 Sat by Pulse Oximetry: 98 - CARDIOVASCULAR Cardiovascular: Regular Rate, Regular Rhythm, No Murmur - BACK Back: Normal Inspection - MUSCULOSKELETAL/EXTREMETIES Musculoskeletal/Extremeties: MAEW - NEURO Level of Consciousness: Awake, Alert, Appropriate Motor/Sensory: No Motor Deficit - DERM Integumentary: Warm, Dry, Rash - Patient with excoriated mildly erythematous rash distributed to trunk and extremities, increased concentration to waistband area, wrist and ankles Course - Re-evaluation Re-evalutation: 06/27/17 16:21 Smoking cessation handout given to patient. - Vital Signs Vital signs: Temp Pulse Resp BP Pulse Ox 98.2 F 82 18 143/77 H 98 06/27/17 15:07 06/27/17 15:07 06/27/17 15:07 06/27/17 15:07 06/27/17 15:07 Discharge - Discharge Clinical Impression: Hx of essential hypertension, Skin rash Condition: Stable Disposition: HOME, SELF-CARE Instructions: Antihistamines ([facility]), Scabies ([facility]) Additional Instructions: Return immediately for any new or worsening symptoms Followup with your primary care provider, call tomorrow to make a followup appointment Follow-up with dermatology for any continued problems Prescriptions: Hydroxyzine HCl [Atarax 25 mg Tablet] 1 - 2 tab PO QID PRN #15 tablet PRN Reason: Permethrin [Elimite] 60 gm TP ONCE #60 gm Forms: Elevated Blood Pressure, Smoking Cessation Education, Return to Work Referrals: NO JERONIMO MD [Primary Care Provider] - Follow up tomorrow VAMSHI DAVISON DO [ACTIVE STAFF] - Follow up as needed
[2017-06-27 17:34] VITALS: BP 131/83
== END 2017-06-27 17:56 | disposition home or self-care (01) ==
LOC: ER 14:34
DX: R21 Rash and other nonspecific skin eruption (principal); L29.8 Other pruritus; I10 Essential (primary) hypertension; F17.200 Nicotine dependence, unspecified, uncomplicated; Z71.6 Tobacco abuse counseling
CPT/HCPCS: 99282

== ENCOUNTER 2018-01-08 16:36 | Emergency (ER) | payer MEDICARE, MEDICAID ==
--- NOTE | 2018-01-08 18:57 | ER Document Report ---
ED Medical Screen (RME) - General Chief Complaint: Dizziness Stated Complaint: WEAKNESS Time Seen by Provider: 01/08/18 18:51 TRAVEL OUTSIDE OF THE [place] IN LAST 30 DAYS: No - HPI Notes: 01/08/18 18:54 Patient is a 58-year-old female with a history of chronic anemia and hypertension who presents to the ED complaining of feeling lightheaded and dizzy 3 weeks. Patient states that her dizziness is associated when she stands from a seated position and resolves after she has been standing for about a minute. Patient states that she has been eating and drinking without any difficulties. She has been urinating normally and having normal bowel movements. Patient reports having a colonoscopy 3 months ago that was unremarkable and an endoscopy performed last year which was also unremarkable. Patient states that she did need a transfusion 2 years ago but does not know exactly why after having evaluations performed. Denies any headache, fever, neck pain, changes in vision/speech/mentation/hearing, URI, sore throat, chest pain, palpitations, syncope, cough, shortness of breath, wheeze, dyspnea, abdominal pain, nausea/vomiting/diarrhea, urinary retention, dysuria, hematuria , loss of control of bowel or bladder, numbness/tingling, saddle anesthesia, muscle paralysis/weakness, or rash. I have treated and performed a rapid initial assessment of this patient. A comprehensive ED assessment and evaluation of the patient, analysis of test results and completion of medical decision making process will be conducted by additional ED providers. PHYSICAL EXAMINATION: Eyes: PERRLA, EOMI. GENERAL: Well-appearing, well-nourished and in no acute distress. A&Ox4. Answers questions appropriately. LUNGS: Breath sounds clear to auscultation bilaterally and equal. No wheezes rales or rhonchi. HEART: Regular rate and rhythm without murmurs, rubs, gallops. Extremities: No cyanosis, clubbing, or edema b/l. NEUROLOGICAL: Normal speech, normal gait. PSYCH: anxious, normal affect. - Related Data Allergies/Adverse Reactions: Penicillins Allergy (Mild, Verified 01/08/18 16:39) Rash aspirin [Aspirin] Allergy (Verified 01/08/18 16:39) pentazocine HCl [From Talwin Compound] Allergy (Verified 01/08/18 16:39) Tetanus Vaccines and Toxoid [Tetanus] Allergy (Verified 01/08/18 16:39) Past Medical History - Social History Chew tobacco use (# tins/day): No Frequency of alcohol use: None Drug Abuse: None - Past Medical History Cardiac Medical History: Reports: Hx Hypertension Neurological Medical History: Reports: Hx Cerebrovascular Accident, Hx Migraine Endocrine Medical History: Reports: Hx Hypothyroidism Renal/ Medical History: Reports: Hx Ovarian Cysts. Denies: Hx Peritoneal Dialysis Musculoskeltal Medical History: Reports Hx Arthritis Psychiatric Medical History: Reports: Hx Depression Past Surgical History: Reports: Hx Section, Hx Gastric Bypass Surgery, Hx Genitourinary Surgery - gastric bypass, Hx Hysterectomy - Immunizations Hx Diphtheria, Pertussis, Tetanus Vaccination: No Physical Exam - Vital signs Vitals: Temp 98.2 F 01/08/18 17:04 Course - Vital Signs Vital signs: Temp Pulse Resp BP Pulse Ox 98.2 F 01/08/18 17:04 Doctor's Discharge - Discharge Referrals: NO JERONIMO MD [Primary Care Provider] - Follow up as needed
[2018-01-08 19:48] LABS: ABSOLUTE BASOPHILS # (AUTO) 0.1 10^3/uL (0.0-0.2); ABSOLUTE EOSINOPHILS # (AUTO) 0.2 10^3/uL (0.0-0.6); ABSOLUTE LYMPHOCYTES (AUTO) 2.8 10^3/uL (0.5-4.7); ABSOLUTE MONOCYTES (AUTO) 0.4 10^3/uL (0.1-1.4); BASOPHILS % (AUTO) 0.8 % (0-2); EOSINOPHILS % (AUTO) 1.9 % (0-6); HEMATOCRIT 28.5 % (36.0-47.0); HEMOGLOBIN 8.4 g/dL (12.0-15.5); LYMPHOCYTES % (AUTO) 33.3 % (13-45); MEAN CORPUSCULAR HEMOGLOBIN 20.6 pg (27.0-33.4); MEAN CORPUSCULAR HGB CONC 29.6 g/dL (32.0-36.0); MEAN CORPUSCULAR VOLUME 70 fl (80-97); MONOCYTES % (AUTO) 4.9 % (3-13); PLATELET COUNT 259 10^3/uL (150-450); RED BLOOD COUNT 4.09 10^6/uL (3.72-5.28); RED CELL DISTRIBUTION WIDTH 17.8 % (11.5-14.0); SEGMENTED NEUTROPHILS % (AUTO) 59.1 % (42-78); TOTAL CELLS COUNTED % (AUTO) 100 %; WHITE BLOOD COUNT 8.5 10^3/uL (4.0-10.5)
[2018-01-08 19:51] LABS: APPEARANCE,URINE CLEAR; BILIRUBIN,URINE NEGATIVE (NEGATIVE); COLOR,URINE STRAW; GLUCOSE, URINE NEGATIVE (NEGATIVE); KETONES,URINE NEGATIVE (NEGATIVE); LEUKOCYTE ESTERASE,URINE SMALL (NEGATIVE); NITRITE,URINE NEGATIVE (NEGATIVE); PROTEIN,URINE NEGATIVE (NEGATIVE); URINE SPECIFIC GRAVITY 1.005; UROBILINOGEN,URINE NEGATIVE mg/dL (<2.0)
[2018-01-08 20:16] LABS: ALANINE AMINOTRANSFERASE 14 U/L (9-52); ALBUMIN 4.4 g/dL (3.5-5.0); ALKALINE PHOSPHATASE 77 U/L (38-126); ANION GAP 15 (5-19); ASPARTATE AMINO TRANSFERASE 19 U/L (14-36); BILIRUBIN,DIRECT 0.2 mg/dL (0.0-0.4); BILIRUBIN,TOTAL 0.2 mg/dL (0.2-1.3); BLOOD UREA NITROGEN 23 mg/dL (7-20); CALCIUM 9.4 mg/dL (8.4-10.2); CARBON DIOXIDE 22 mmol/L (22-30); CHLORIDE 105 mmol/L (98-107); GLUCOSE 91 mg/dL (75-110); POTASSIUM 3.9 mmol/L (3.6-5.0); SODIUM 141.5 mmol/L (137-145); TOTAL PROTEIN 7.1 g/dL (6.3-8.2)
--- NOTE | 2018-01-08 22:19 | ER Document Report ---
ED General <DONNA MELENDEZ - Last Filed: 01/08/18 22:51> - General Mode of Arrival: Ambulatory Information source: Patient TRAVEL OUTSIDE OF THE [place] 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 She presents to the ED with lightheadedness and dizziness of onset 3 weeks ago. Pt reports that her dizziness and lightheadedness is intermittent when she sits up or stands up and presents with "muffled" hearing. She reports blood transfusions in the past, her last being about 4 years ago and was not sure if she needed another transfusion. Pt denies taking any Iron supplements as she is prescribed because they cause her to have diarrhea and reports that she has talked to her primary doctor concerning this in the past who has requested of her to continue taking the Iron. Pt reports that she is taking her medications for HTN and depression. She denies taking any hypothyroidism medications. She reports that she was once told that she had hypothyroidism but has since discontinued the medication and she has not had any concern for her thyroid with her routine check ups. Pt denies any follow up for her splenic artery aneurysm, she states that she told her doctor who told her to recheck her aneurysm every year. Pt's report that her PCP is Dr. Jeronimo but she reports that she has recently been seeing Katina Smith NP and is trying to change primary care physicians. (BOBO HUIZAR) - Related Data Allergies/Adverse Reactions: Penicillins Allergy (Mild, Verified 01/08/18 16:39) Rash aspirin [Aspirin] Allergy (Verified 01/08/18 16:39) pentazocine HCl [From Talwin Compound] Allergy (Verified 01/08/18 16:39) Tetanus Vaccines and Toxoid [Tetanus] Allergy (Verified 01/08/18 16:39) Past Medical History - General Information source: Patient - Social History Smoking Status: Current Every Day Smoker Cigarette use (# per day): Yes - 1 pack for every 3-4 days Chew tobacco use (# tins/day): No Smoking Education Provided: Yes Frequency of alcohol use: None Drug Abuse: None Family History: Arthritis, CAD, DM, Hypertension, Other - No TIAs. denies: CVA Patient has suicidal ideation: No Patient has homicidal ideation: No - Past Medical History Cardiac Medical History: Reports: Hx Hypertension, Other - splenic artery aneurysm 04/22/2017 Neurological Medical History: Reports: Hx Migraine, Other - Possible TIA Endocrine Medical History: Reports: Hx Hypothyroidism - Has not taken medication in years and is not with concern for this any more Renal/ Medical History: Reports: Hx Ovarian Cysts. Denies: Hx Peritoneal Dialysis Musculoskeletal Medical History: Reports Hx Arthritis Psychiatric Medical History: Reports: Hx Depression Past Surgical History: Reports: Hx Section, Hx Gastric Bypass Surgery - in 1999, Hx Hysterectomy - Immunizations Hx Diphtheria, Pertussis, Tetanus Vaccination: No <BOBO HUIZAR - Last Filed: 01/09/18 01:51> Review of Systems - Review of Systems Constitutional: See HPI, Other - lightheadedness/ dizziness EENT: See HPI, Other - "muffled" hearing Cardiovascular: No symptoms reported Respiratory: No symptoms reported Gastrointestinal: No symptoms reported Genitourinary: No symptoms reported Female Genitourinary: No symptoms reported Musculoskeletal: No symptoms reported Skin: No symptoms reported Hematologic/Lymphatic: No symptoms reported Neurological/Psychological: No symptoms reported -: Yes All other systems reviewed and negative <BOBO HUIZAR - Last Filed: 01/09/18 01:51> Physical Exam <DONNA MELENDEZ - Last Filed: 01/08/18 22:51> <BOBO HUIZAR - Last Filed: 01/09/18 01:51> - Vital signs Vitals: Pulse Resp BP Pulse Ox 74 20 108/62 99 01/08/18 16:53 01/08/18 16:53 01/08/18 16:53 01/08/18 16:53 - Notes Notes: Physical Exam: General: Alert, appears well. HEENT: Normocephalic. Atraumatic. PERRL. Extraocular movements intact. Oropharynx clear. Neck: Supple. Non-tender. Respiratory: No respiratory distress. Clear and equal breath sounds bilaterally. Cardiovascular: Regular rate and rhythm. Abdominal: Obese. Soft, non-tender. No distension. Normal Bowel Sounds. Back: Non-tender. No deformity or step off. Extremities: Moves all four extremities. Upper extremities: Normal inspection. Normal ROM. Lower extremities: Normal inspection. No edema. Normal ROM. Neurological: Normal cognition. AAOx3. Normal speech. Psychological: Normal affect. Normal Mood. Skin: Warm. Dry. Normal color. (BOBO HUIZAR) Course - Laboratory Result Diagrams: 01/08/18 19:13 01/08/18 19:13 <DONNA MELENDEZ - Last Filed: 01/08/18 22:51> - Laboratory Result Diagrams: 01/08/18 19:13 01/08/18 19:13 <BOBO HUIZAR - Last Filed: 01/09/18 01:51> - Re-evaluation Re-evalutation: 01/08/18 22:46 The patient's orthostatics that were checked earlier show a sitting and lying blood pressure of 126/75 and standing pressure of 108/80 with pulse going up from 60 to 70. This is probably due to her anemia, along with her not drinking as much fluids as she needs to, and age and blood pressure effects on orthostatic pressures. She has figured out that sitting on edge of the bed for a few minutes before standing up will prevent her from having symptoms and she is encouraged to do this. She is also encouraged to start taking vitamins with iron, as this is better than no iron at all. She states she is changing primary care providers, she is encouraged to make that happen as soon as possible and then inquire about iron transfusions to treat her anemia. (DONNA MELENDEZ) - Vital Signs Vital signs: Temp Pulse Resp BP Pulse Ox 98.3 F 60 11 L 127/76 H 100 01/08/18 20:09 01/08/18 22:03 01/08/18 22:00 01/08/18 22:03 01/08/18 22:00 - Laboratory Laboratory results interpreted by vt: 01/08/18 01/08/18 01/08/18 19:13 19:13 19:13 Hgb 8.4 L Hct 28.5 L MCV 70 L MCH 20.6 L MCHC 29.6 L RDW 17.8 H BUN 23 H Est GFR (Non-Af Amer) 55 L Ur Leukocyte Esterase SMALL H Discharge <DONNA MELENDEZ - Last Filed: 01/08/18 22:51> <BOBO HUIZAR - Last Filed: 01/09/18 01:51> - Discharge Clinical Impression: Chronic iron deficiency anemia, Orthostatic dizziness Condition: Stable Disposition: HOME, SELF-CARE Additional Instructions: Orthostatic Hypotension You have orthostatic hypotension. Your blood pressure goes down when you stand up. Symptoms can include dizziness, transient loss of vision, ringing in the ears, nausea, and fainting. At this time, there's no evidence of a serious problem requiring hospitalization. Orthostatic hypotension can be caused by dehydration, poor nutrition, over- exercise, or medication. For some people, orthostatic hypotension is an ongoing problem, and no cause can be found. We usually treat orthostatic hypotension with fluids. We look for a treatable cause. If no cause was found, you should get enough rest, exercise moderately, and get plenty of fluids. When you feel the first symptoms suggesting you might faint, sit or squat down as quickly as you can. If symptoms don't go away quickly, lie down. Call the doctor or return if you are worsening or if new symptoms develop. You have a chronic iron deficiency anemia. You should increase iron in your diet intake vitamins with iron. You should follow-up with your new primary care provider and discuss a lower dose iron pill, and if that does not work then consider iron transfusions. Your lab work today suggests you are not drinking nearly enough water. You should drink more fluids as this will probably decrease the dizziness symptoms some. You should also sit on the edge of the bed and dangle your legs for a few minutes before you stand up to prevent the symptoms you are having when you stand up quickly. Again, follow-up with your new primary care provider is soon as you can to address your symptoms and medical problems. RETURN TO THE EMERGENCY ROOM IF ANY NEW OR WORSENING SYMPTOMS. Forms: Return to Work Referrals: NO JERONIMO MD [NO LOCAL MD] - Follow up as needed Scribe Attestation: 01/08/18 22:50 I personally performed the services described in the documentation, reviewed and edited the documentation which was dictated to the scribe in my presence, and it accurately records my words and actions. (DONNA MELENDEZ) Scribe Documentation - Scribe Written by Atif:: Atif Che 01/08/18 [id number] acting as scribe for :: Shayy <BOBO HUIZAR - Last Filed: 01/09/18 01:51>
[2018-01-08 22:57] VITALS: BP 108/80
--- NOTE | 2018-01-09 00:16 | EKG REPORT ---
SEVERITY:- NORMAL ECG - SINUS RHYTHM : Confirmed by: Mercy Yousif MD 09-Jan-2018 00:15:17
== END 2018-01-08 23:18 | disposition home or self-care (01) ==
LOC: ER 16:36
DX: D50.9 Iron deficiency anemia, unspecified (principal); R42 Dizziness and giddiness; R53.1 Weakness; I10 Essential (primary) hypertension; Z88.0 Allergy status to penicillin; Z88.2 Allergy status to sulfonamides; Z98.84 Bariatric surgery status
CPT/HCPCS: 36415; 80053; 81001; 83735; 85025; 93005; 93010; 99284

== ENCOUNTER 2018-01-14 13:47 | Emergency (ER) | payer MEDICARE, MEDICAID ==
[2018-01-14] MEDS ORDERED: FENTANYL CITRATE INJ/PF 100 MCG/2 ML AMPUL IV ONE (14:07)
[2018-01-14] MEDS ORDERED: ONDANSETRON HCL INJ/PF 4 MG/2 ML SDV IV ONE (14:07)
[2018-01-14] MEDS ORDERED: NORMAL SALINE 1000 ML 1,000 ML IV ONE (14:07)
--- NOTE | 2018-01-14 14:10 | ER Document Report ---
ED Medical Screen (RME) - General Chief Complaint: Abdominal Pain Stated Complaint: RIGHT SIDE RIB PAIN Time Seen by Provider: 01/14/18 14:07 Notes: 58 years old female presents today with right upper quadrant abdominal pain since last Sunday and also right lower part of the chest. 10/10 in intensity. Associated with nausea no vomiting. No difficulty in breathing. No fever chills or other constitutional symptoms. She is a smoker She was seen by a primary care physician and had complete blood work done according to her and no positive finding. Pain is increased in taking deep breath and moving around. She also was having dizziness her blood pressure medicine was adjusted by the primary care physician last Sunday. TRAVEL OUTSIDE OF THE [place] IN LAST 30 DAYS: No - Related Data Allergies/Adverse Reactions: Penicillins Allergy (Mild, Verified 01/08/18 16:39) Rash aspirin [Aspirin] Allergy (Verified 01/08/18 16:39) pentazocine HCl [From Talwin Compound] Allergy (Verified 01/08/18 16:39) Tetanus Vaccines and Toxoid [Tetanus] Allergy (Verified 01/08/18 16:39) Past Medical History - Social History Chew tobacco use (# tins/day): No Frequency of alcohol use: None Drug Abuse: None - Past Medical History Cardiac Medical History: Reports: Hx Hypertension Neurological Medical History: Reports: Hx Cerebrovascular Accident, Hx Migraine Endocrine Medical History: Reports: Hx Hypothyroidism - Has not taken medication in years and is not with concern for this any more Renal/ Medical History: Reports: Hx Ovarian Cysts. Denies: Hx Peritoneal Dialysis Musculoskeltal Medical History: Reports Hx Arthritis Psychiatric Medical History: Reports: Hx Depression Past Surgical History: Reports: Hx Section, Hx Gastric Bypass Surgery - in 1999, Hx Genitourinary Surgery - gastric bypass, Hx Hysterectomy - Immunizations Hx Diphtheria, Pertussis, Tetanus Vaccination: No Physical Exam - Vital signs Vitals: Temp Pulse Resp BP Pulse Ox 97.5 F 95 14 168/83 H 100 01/14/18 13:54 01/14/18 13:54 01/14/18 13:54 01/14/18 13:54 01/14/18 13:54 Course - Vital Signs Vital signs: Temp Pulse Resp BP Pulse Ox 97.5 F 95 14 168/83 H 100 01/14/18 13:54 01/14/18 13:54 01/14/18 13:54 01/14/18 13:54 01/14/18 13:54
--- NOTE | 2018-01-14 14:59 | RADIOLOGY REPORT (SQ) ---
EXAM DESCRIPTION: ACUTE ABDOMEN SERIES COMPLETED DATE/TIME: 01/14/2018 2:29 pm REASON FOR STUDY: Abdominal pain COMPARISON: CT abdomen and pelvis 04/23/2017 and chest x-ray 01/25/2017 NUMBER OF VIEWS: Three views. TECHNIQUE: Frontal chest, supine abdomen and upright/decubitus abdomen radiographic images acquired. LIMITATIONS: None. FINDINGS: CHEST: Lungs clear of infiltrates. FREE AIR: No free air identified. Incidentally noted is extension of the right colon beneath the rig ht hemidiaphragm. BOWEL GAS PATTERN: Nonspecific increase bowel gas with air in large and small bowel loops. Nonobstru ctive appearance. CALCIFICATIONS: Splenic artery calcification noted. splenic artery aneurysms previously identified by CT. HARDWARE: Post cholecystectomy SOFT TISSUES: No gross mass or suggestion of organomegaly. BONES: No acute fracture. No worrisome bone lesions. OTHER: No other significant finding. IMPRESSION: Nonspecific increase bowel gas, nonobstructive appearance. COMMENT: Calcified splenic artery aneurysm. TECHNICAL DOCUMENTATION: JOB ID: [id number] [email or web address]- All Rights Reserved Reading location - IP/workstation name: [email or web address]
[2018-01-14 15:09] LABS: ABSOLUTE BASOPHILS # (AUTO) 0.1 10^3/uL (0.0-0.2); ABSOLUTE EOSINOPHILS # (AUTO) 0.1 10^3/uL (0.0-0.6); ABSOLUTE LYMPHOCYTES (AUTO) 1.9 10^3/uL (0.5-4.7); ABSOLUTE MONOCYTES (AUTO) 0.7 10^3/uL (0.1-1.4); BASOPHILS % (AUTO) 1.2 % (0-2); EOSINOPHILS % (AUTO) 1.9 % (0-6); LYMPHOCYTES % (AUTO) 23.8 % (13-45); MEAN CORPUSCULAR HEMOGLOBIN 20.8 pg (27.0-33.4); MEAN CORPUSCULAR HGB CONC 29.8 g/dL (32.0-36.0); MEAN CORPUSCULAR VOLUME 70 fl (80-97); MONOCYTES % (AUTO) 8.9 % (3-13); PLATELET COUNT 602 10^3/uL (150-450); RED BLOOD COUNT 3.88 10^6/uL (3.72-5.28); RED CELL DISTRIBUTION WIDTH 17.6 % (11.5-14.0); SEGMENTED NEUTROPHILS % (AUTO) 64.2 % (42-78); TOTAL CELLS COUNTED % (AUTO) 100 %; WHITE BLOOD COUNT 7.8 10^3/uL (4.0-10.5)
[2018-01-14 15:21] LABS: APPEARANCE,URINE CLEAR; BILIRUBIN,URINE NEGATIVE (NEGATIVE); COLOR,URINE STRAW; GLUCOSE, URINE NEGATIVE (NEGATIVE); KETONES,URINE NEGATIVE (NEGATIVE); LEUKOCYTE ESTERASE,URINE SMALL (NEGATIVE); NITRITE,URINE NEGATIVE (NEGATIVE); PROTEIN,URINE NEGATIVE (NEGATIVE); URINE SPECIFIC GRAVITY 1.008; UROBILINOGEN,URINE NEGATIVE mg/dL (<2.0)
[2018-01-14 15:31] LABS: ALANINE AMINOTRANSFERASE 19 U/L (9-52); ALBUMIN 4.2 g/dL (3.5-5.0); ALKALINE PHOSPHATASE 72 U/L (38-126); ANION GAP 14 (5-19); ASPARTATE AMINO TRANSFERASE 26 U/L (14-36); BILIRUBIN,DIRECT 0.2 mg/dL (0.0-0.4); BILIRUBIN,TOTAL 0.2 mg/dL (0.2-1.3); BLOOD UREA NITROGEN 15 mg/dL (7-20); CALCIUM 9.3 mg/dL (8.4-10.2); CARBON DIOXIDE 25 mmol/L (22-30); CHLORIDE 108 mmol/L (98-107); GLUCOSE 90 mg/dL (75-110); LIPASE 103.5 U/L (23-300); POTASSIUM 4.1 mmol/L (3.6-5.0); TOTAL PROTEIN 7.3 g/dL (6.3-8.2)
--- NOTE | 2018-01-14 16:27 | ER Document Report ---
ED General - General Chief Complaint: Abdominal Pain Stated Complaint: RIGHT SIDE RIB PAIN Time Seen by Provider: 01/14/18 14:07 TRAVEL OUTSIDE OF THE [place] IN LAST 30 DAYS: No - HPI Notes: 58-year-old female, seen by physician in triage with orders and radiographs placed and available and I first see her. Patient indicates that over the last 2 weeks she has had right upper quadrant pain. This happened in the past but worse lately. Worse with motion. She has had a cholecystectomy remotely. She has a history of chronic anemia. Has had issues with GI bleeding had unplanned weight loss of over 40 pounds over the last 3-4 months. She recently saw her primary care doctor in the office and had labs drawn 3-4 days ago and states they are "fine". Supposed to follow-up with her later this week. She denies any fever, chills or sweats. No cough. No other modifying factors, no other associated symptoms, no other provocative or palliative factors. Of note, she also indicates some dizziness upon standing and because of this, and the fact is been going on for months, has - Related Data Allergies/Adverse Reactions: Penicillins Allergy (Mild, Verified 01/08/18 16:39) Rash aspirin [Aspirin] Allergy (Verified 01/08/18 16:39) pentazocine HCl [From Talwin Compound] Allergy (Verified 01/08/18 16:39) Tetanus Vaccines and Toxoid [Tetanus] Allergy (Verified 01/08/18 16:39) Past Medical History - Social History Smoking Status: Current Every Day Smoker Chew tobacco use (# tins/day): No Frequency of alcohol use: None Drug Abuse: None Family History: Arthritis, CAD, DM, Hypertension, Other - No TIAs. denies: CVA Patient has suicidal ideation: No Patient has homicidal ideation: No - Past Medical History Cardiac Medical History: Reports: Hx Hypertension Neurological Medical History: Reports: Hx Cerebrovascular Accident, Hx Migraine Endocrine Medical History: Reports: Hx Hypothyroidism - Has not taken medication in years and is not with concern for this any more Renal/ Medical History: Reports: Hx Ovarian Cysts. Denies: Hx Peritoneal Dialysis Musculoskeletal Medical History: Reports Hx Arthritis Psychiatric Medical History: Reports: Hx Depression Past Surgical History: Reports: Hx Section, Hx Gastric Bypass Surgery - in 1999, Hx Genitourinary Surgery - gastric bypass, Hx Hysterectomy - Immunizations Hx Diphtheria, Pertussis, Tetanus Vaccination: No Review of Systems - Review of Systems Notes: Review of systems as in the history of present illness, otherwise negative x 10 systems. Physical Exam - Vital signs Vitals: Temp Pulse Resp BP Pulse Ox 97.5 F 95 14 168/83 H 100 01/14/18 13:54 01/14/18 13:54 01/14/18 13:54 01/14/18 13:54 01/14/18 13:54 - Notes Notes: General: Well developed . HEENT: Normocephalic, atraumatic. Pupils equal round reactive to light. No JVD. No conjunctiva Chest: No trauma. Respiratory: Good air exchange, normal excursion. Cardiac: Regular rhythm. No murmurs or gallops. Abdomen: Soft, benign. Nondistended. Right upper quadrant tenderness. Back: No asymmetry or gross abnormality. Motor: Grossly normal power and tone. Neurologic: Alert, nonfocal. Cranial nerves II-12 are intact. Sensation intact. Vascular: Well perfused. Normal peripheral pulses. Skin: No petechiae or purpura. Course - Re-evaluation Re-evalutation: 01/14/18 16:50 Ill-appearing female the after mentioned symptoms, relatively benign abdominal exam. Review of her labs available radiographs show unremarkable AAS, CBC is unremarkable except for baseline anemia. Platelets are normal. Chemistries LFTs and lipase are normal. Patient has a multitude of problems, many which are chronic, which necessitate close outpatient follow-up and workup. Of particular concern is her history of previous bleeding, anemia, unplanned weight loss and the potential for malignancy. She has established primary care and appropriate follow-up. I see no other additional ED workup which would be helpful. In the event this may represent a peptic ulcer disease, I will treat her with omeprazole and Carafate. Otherwise she will follow-up as discussed. Given this week off work , advised to be careful upon standing. Will continue some type of iron supplementation. - Vital Signs Vital signs: Temp Pulse Resp BP Pulse Ox 97.5 F 95 14 168/83 H 100 01/14/18 13:54 01/14/18 13:54 01/14/18 13:54 01/14/18 13:54 01/14/18 13:54 - Laboratory Result Diagrams: 01/14/18 14:48 01/14/18 14:48 Laboratory results interpreted by me: 01/14/18 01/14/18 01/14/18 14:48 14:48 14:48 Hgb 8.0 L Hct 27.0 L MCV 70 L MCH 20.8 L MCHC 29.8 L RDW 17.6 H Plt Count 602 H Sodium 147.0 H Chloride 108 H Ur Leukocyte Esterase SMALL H Discharge - Discharge Clinical Impression: Abdominal pain Qualifiers: Abdominal location: upper abdomen, unspecified Qualified Code(s): R10.10 - Upper abdominal pain, unspecified Condition: Good Disposition: HOME, SELF-CARE Instructions: Abdominal Pain ([facility]) Prescriptions: Omeprazole Magnesium [Prilosec Otc] 20 mg PO DAILY #30 tablet. Sucralfate [Carafate Susp 1 Gm/10 Ml Udcup] 1 gm PO TID #120 udc Forms: Return to Work Referrals: ROSA BAER, [facility] [Primary Care Provider] - Follow up as needed
[2018-01-14 16:52] VITALS: BP 137/77
--- NOTE | 2018-01-14 17:52 | EKG REPORT ---
SEVERITY:- NORMAL ECG - SINUS RHYTHM : Confirmed by: Estrada Gonzalez 14-Jan-2018 17:51:37
== END 2018-01-14 16:52 | disposition home or self-care (01) ==
LOC: ER 13:47
DX: R10.11 Right upper quadrant pain (principal); D64.9 Anemia, unspecified; R63.4 Abnormal weight loss; F17.200 Nicotine dependence, unspecified, uncomplicated; I10 Essential (primary) hypertension; Z68.33 Body mass index [BMI] 33.0-33.9, adult; Z90.49 Acquired absence of other specified parts of digestive tract; Z88.0 Allergy status to penicillin; Z88.6 Allergy status to analgesic agent; Z88.1 Allergy status to other antibiotic agents; Z88.7 Allergy status to serum and vaccine; Z98.84 Bariatric surgery status
CPT/HCPCS: 93005; 99284; 96361; 96374; 96375; 36415; 83690; 85025; 80053; 81001; 84484; 74022; 93010; J3010; J2405; J7030

== ENCOUNTER 2018-01-28 07:40 | Day surgery (SDC) | payer MEDICARE, MEDICAID ==
[~2018-01-28 07:40] MED LIST: PROPOFOL INJ 200 MG/20 ML VIAL IV ONE
[2018-01-28 09:45] VITALS: BP 134/69
--- NOTE | 2018-01-28 12:23 | Operative Report ---
Operative Report DATE OF SURGERY: 01/28/18 Operative Report: The risks, benefits and alternatives of the procedure including risks of bleeding, perforation requiring surgery are explained to the patient in detail and informed consent was obtained. Patient is taken back to the endoscopy suite and placed in the left, lateral decubital position. Timeout was called. Propofol medication is administered. A rectal examination is done which did not reveal any masses, tears or fissures. An Olympus videoscope was inserted into the patient's rectum. The scope was then carefully advanced all the way to the cecum. The cecum was identified by the usual anatomical landmarks including the ileocecal valve as well as the appendiceal office. Photodocumentation is obtained. The scope was then sequentially pulled back via the various segments of the colon including the ascending colon, hepatic flexure, transverse colon, splenic flexure, descending colon and finally into the rectosigmoid portions of the colon. Retroflexion maneuver is performed. The risks benefits and alternatives of the procedure explained to the patient in detail and informed consent is obtained.A GIF Olympus video scope was inserted into the patient's mouth and hypopharynx, the esophagus is identified intubated and insufflated, the scope was then advanced through the esophagus stomach and duodenum, retroflexion maneuver is done ,the esophagus stomach and first and second portions of the duodenum examined PREOPERATIVE DIAGNOSIS: Epigastric pain. Weight loss. Rectal bleeding POSTOPERATIVE DIAGNOSIS: Internal and external hemorrhoids are more appropriate for surgery. Inflammation on the right side of the colon status post biopsy rule out lymphocytic, microscopic, collagenous colitis. Hiatal hernia. Nonobstructive Schatzki's ring. Anastomotic ulcer status post biopsy OPERATION: Colonoscopy with biopsy. EGD with biopsy SURGEON: WILBERTO ADAMS ANESTHESIA: LMAC TISSUE REMOVED OR ALTERED: As noted above. COMPLICATIONS: None. ESTIMATED BLOOD LOSS: None. INTRAOPERATIVE FINDINGS: As noted above. PROCEDURE: Patient tolerated procedure well. No immediate postprocedure complications are noted. Patient discharged in good condition. Discharge date 01/28/2018 Discharge diet: Regular. Discharge activity: Regular. 2-3 week follow-up to discuss findings. Patient is instructed to call the office or proceed to the emergency room should there be any further problems or questions. Wait on the pathology.
== END 2018-01-28 09:40 | disposition home or self-care (01) ==
LOC: END 07:40
PROVIDERS: ATTEND Internal Medicine Gastroenterology
DX: K52.9 Noninfective gastroenteritis and colitis, unspecified (principal); K22.2 Esophageal obstruction; K44.9 Diaphragmatic hernia without obstruction or gangrene; K28.9 Gastrojejunal ulcer, unspecified as acute or chronic, without hemorrhage or perforation; R63.4 Abnormal weight loss; K64.4 Residual hemorrhoidal skin tags; K64.8 Other hemorrhoids; K62.5 Hemorrhage of anus and rectum; I10 Essential (primary) hypertension; Z68.32 Body mass index [BMI] 32.0-32.9, adult
CPT/HCPCS: 43239; 45380; 88342 ×2; 88305 ×2; J2704; 813

== ENCOUNTER → 2018-02-05 | Outpatient (CLI) | payer MEDICARE, MEDICAID ==
--- NOTE | 2018-02-05 11:24 | RADIOLOGY REPORT (SQ) ---
EXAM DESCRIPTION: CT CHEST WITH; CT ABD/PELVIS WITH IV ORAL COMPLETED DATE/TIME: 02/05/2018 10:55 am REASON FOR STUDY: CHEST PAIN (R07.9), INTESTINAL MALABSORPTION (K90.9), UNSPEC ABD PAIN (R10. K90.9 INTESTINAL MALABSORPTION, UNSPECIFIED R07.9 CHEST PAIN, UNSPECIFIED R10.9 UNSPECIFIED ABDOMINAL PA IN COMPARISON: CT abdomen pelvis 02/05/2018 CONTRAST TYPE AND DOSE: contrast/concentration: Isovue 350.00 mg/ml; Total Contrast Delivered: 94.0 ml; Total Saline Delivered: 72.0 ml RENAL FUNCTION: Creatinine 0.72 TECHNIQUE: CT scan of the chest performed using helical scanning technique with dynamic intravenous contrast injection. Images reviewed with lung, soft tissue and bone windows. Reconstructed coronal a nd sagittal MPR images reviewed. All images stored on PACS. CT scan of the abdomen and pelvis performed with intravenous and with oral contrastusing helical scan caren technique with dynamic intravenous contrast injection. Images reviewed with lung, soft tissue a nd bone windows. Reconstructed coronal and sagittal MPR images reviewed. Delayed images for evaluat ion of the urinary system also acquired and evaluated. All images stored on PACS. All CT scanners at this facility use dose modulation, iterative reconstruction, and/or weight based d osing when appropriate to reduce radiation dose to as low as reasonably achievable (ALARA). [facility]: Dose Right [facility]: CareDose [facility]: Dose Right [facility]: Teradose 4D [facility]: [employer] RADIATION DOSE: CT Rad equipment meets quality standard of care and radiation dose reduction techniq ues were employed. CTDIvol: 8.9 - 10.6 mGy. DLP: 1425 mGy-cm. . LIMITATIONS: None. FINDINGS: CHEST: LUNGS AND PLEURA: No opacities, nodules, masses. No pneumothorax. No effusions. HILAR AND MEDIASTINAL STRUCTURES: No identified masses or abnormal nodes. HEART AND VASCULAR STRUCTURES: No aneurysm or dissection. No central pulmonary emboli. No pericardi al effusion. HARDWARE: None. THYROID AND OTHER SOFT TISSUES: No masses. No adenopathy. BONES: Chronic appearing T7 and T11 25 to 50% compression deformities, old healed sternal fracture. OTHER: No other significant finding. ABDOMEN AND PELVIS: LIVER: Normal size. No masses. No dilated ducts. SPLEEN: Normal size. No focal lesions. PANCREAS: No masses. No significant calcifications. No adjacent inflammation or peripancreatic fluid collections. Pancreatic duct not dilated. GALLBLADDER: No identified stones by CT criteria. No inflammatory changes to suggest cholecystitis. ADRENAL GLANDS: No significant masses or asymmetry. RIGHT KIDNEY AND URETER: No solid masses. No significant calcification. No hydronephrosis or hydroure ter. LEFT KIDNEY AND URETER: No solid masses. No significant calcification. No hydronephrosis or hydrouret er. Left extrarenal pelvis, an anatomic variant. Focal cortical scarring left lower pole kidney AORTA AND VESSELS: No aneurysm. No dissection. Renal arteries, SMA, celiac without stenosis. RETROPERITONEUM: No retroperitoneal adenopathy, hemorrhage or masses. BOWEL AND PERITONEAL CAVITY: Patient drank oral contrast. No CT evidence of bowel obstruction or ron e intraperitoneal air or fluid. Post gastric bypass with small hiatal hernia. APPENDIX: Normal. ABDOMINAL WALL: No masses. No hernias. PELVIS: No mass or free fluid. Normal bladder. Post hysterectomy BONES: No significant or acute findings. OTHER: No other significant finding. IMPRESSION: Small hiatal hernia. Post gastric bypass. Post cholecystectomy and hysterectomy. Otherwise unremarkable CT the chest abdomen pelvis NORMAL CT OF THE ABDOMEN AND PELVIS WITH ORAL AND INTRAVENOUS CONTRAST. TECHNICAL DOCUMENTATION: JOB ID: [id number] Quality ID # [id number]: Final reports with documentation of one or more dose reduction techniques (e.g., Au tomated exposure control, adjustment of the mA and/or kV according to patient size, use of iterative reconstruction technique) 2010 [employer]- All Rights Reserved Reading location - IP/workstation name: [email or web address]
== END ==
LOC: RAD 10:05
PROVIDERS: ATTEND Internal Medicine
DX: K90.9 Intestinal malabsorption, unspecified (principal); R07.9 Chest pain, unspecified; R10.9 Unspecified abdominal pain; R63.4 Abnormal weight loss
CPT/HCPCS: 71260; 74177

== ENCOUNTER 2018-02-10 13:01 | Emergency (ER) | payer MEDICARE, MEDICAID ==
[2018-02-10] MEDS ORDERED: LIDOCAINE 5% (700 MG) TRANSDERMAL ADH..PATCH TP ONE (14:16)
[2018-02-10] MEDS ORDERED: MORPHINE SULFATE IR 15 MG TABLET PO ONE (14:16)
[2018-02-10 15:00] LABS: ABSOLUTE BASOPHILS # (AUTO) 0.1 10^3/uL (0.0-0.2); ABSOLUTE EOSINOPHILS # (AUTO) 0.1 10^3/uL (0.0-0.6); ABSOLUTE LYMPHOCYTES (AUTO) 1.5 10^3/uL (0.5-4.7); ABSOLUTE MONOCYTES (AUTO) 0.6 10^3/uL (0.1-1.4); ABSOLUTE NEUT (AUTO) 4.1 10^3/uL (1.7-8.2); BASOPHILS % (AUTO) 1.1 % (0-2); EOSINOPHILS % (AUTO) 1.5 % (0-6); HEMATOCRIT 26.8 % (36.0-47.0); LYMPHOCYTES % (AUTO) 22.9 % (13-45); MEAN CORPUSCULAR HEMOGLOBIN 19.7 pg (27.0-33.4); MEAN CORPUSCULAR HGB CONC 29.4 g/dL (32.0-36.0); MEAN CORPUSCULAR VOLUME 67 fl (80-97); MONOCYTES % (AUTO) 9.7 % (3-13); PLATELET COUNT 775 10^3/uL (150-450); RED CELL DISTRIBUTION WIDTH 17.7 % (11.5-14.0); SEGMENTED NEUTROPHILS % (AUTO) 64.8 % (42-78); TOTAL CELLS COUNTED % (AUTO) 100 %; WHITE BLOOD COUNT 6.3 10^3/uL (4.0-10.5)
[2018-02-10 15:02] LABS: HEMOGLOBIN 7.9 g/dL (12.0-15.5)
--- NOTE | 2018-02-10 16:23 | ER Document Report ---
ED Medical Screen (RME) - General Chief Complaint: Abdominal Pain Stated Complaint: ABDOMINAL PAIN Time Seen by Provider: 02/10/18 14:09 Mode of Arrival: Ambulatory Information source: Patient TRAVEL OUTSIDE OF THE [place] IN LAST 30 DAYS: No - HPI Patient complains to provider of: Chronic back and rib pain Onset: Other - This 58-year-old female has long-standing chronic back and rib pain which she notes that she has been dealing with for some time, she is currently scheduled to be seen by pain management physician in the coming week, part of this is been attributed in the past to her anemia which she has from heavy menses, her baseline hemoglobin she says is around 8.7-8.9. She has not been taking any other medications than the iron which she is she has been encouraged to use. She denies any abdominal pain emesis nausea diaphoresis or other symptoms. - Related Data Allergies/Adverse Reactions: pentazocine HCl [From Talwin Compound] Allergy (Severe, Verified 02/10/18 14:16) AMS Tetanus Vaccines and Toxoid [Tetanus] Allergy (Severe, Verified 02/10/18 14:16) AMS Penicillins Allergy (Mild, Verified 02/10/18 14:16) Rash aspirin [Aspirin] Allergy (Unknown, Verified 02/10/18 14:16) Past Medical History - General Information source: Patient - Social History Chew tobacco use (# tins/day): No Frequency of alcohol use: None Drug Abuse: None - Past Medical History Cardiac Medical History: Reports: Hx Hypertension - hx of NO MEDS AT THIS TIME Denies: Hx Coronary Artery Disease, Hx Heart Attack Pulmonary Medical History: Denies: Hx Asthma, Hx Bronchitis, Hx COPD, Hx Pneumonia Neurological Medical History: Reports: Hx Migraine. Denies: Hx Cerebrovascular Accident, Hx Seizures Endocrine Medical History: Reports: Hx Hypothyroidism - Has not taken medication in years and is not with concern for this any more Renal/ Medical History: Reports: Hx Ovarian Cysts. Denies: Hx Peritoneal Dialysis Musculoskeltal Medical History: Reports Hx Arthritis - HANDS, BACK Psychiatric Medical History: Reports: Hx Depression Past Surgical History: Reports: Hx Section, Hx Gastric Bypass Surgery - in 1999, Hx Genitourinary Surgery - gastric bypass, Hx Hysterectomy - Immunizations Hx Diphtheria, Pertussis, Tetanus Vaccination: No Review of Systems - Review of Systems -: Yes All other systems reviewed and negative Physical Exam - Vital signs Vitals: Temp Pulse Resp BP Pulse Ox 98.7 F 96 20 165/89 H 100 02/10/18 13:21 02/10/18 13:21 02/10/18 13:21 02/10/18 13:21 02/10/18 13:21 - General General appearance: Appears well In distress: None - HEENT Head: Normocephalic Eyes: Normal Conjunctiva: Normal Pupils: PERRL Ears: Normal External canal: Normal Nasal: Normal Mouth/Lips: Normal Pharynx: Normal - Respiratory Respiratory status: No respiratory distress Chest status: Nontender Breath sounds: Normal Chest palpation: Tender - Tender to palpation along the right costal margin, tender to palpation along the left costal margin - Cardiovascular Rhythm: Regular Heart sounds: Normal auscultation Murmur: No - Abdominal Inspection: Normal - Back Back: Normal - Extremities General upper extremity: Normal inspection, Normal ROM General lower extremity: Normal inspection, Normal ROM - Neurological Neuro grossly intact: Yes Cognition: Normal Orientation: AAOx4 [place] Coma Scale Eye Opening: Spontaneous [place] Coma Scale Verbal: Oriented [place] Coma Scale Motor: Obeys Commands [place] Coma Scale Total: 15 Course - Re-evaluation Re-evalutation: 02/10/18 21:20 This is a 58-year-old female presents for evaluation of chronic pain along the ribs in addition to anemia. She notes that she is being followed by an restaurant kitchen manager for her anemia currently. She is scheduled to see a pain management physician in the coming week. We will obtain a CBC for this patient administer morphine IR in emergency department for analgesia. We will reassess patient as necessary, CBC demonstrates essentially baseline hemoglobin for this patient, she is not actively exsanguinating at this time she does not require emergent transfusion. We will encouraged follow-up with her primary physician, will give a brief prescription for morphine IR 15 mg for the next 7 days until she is able to see her pain management physician. She was given return precautions and expectant management, he does not seem that her chronic pain is likely related to any underlying more insidious process such as but not limited to cholecystitis pancreatitis PE [place] or other more serious condition. - Vital Signs Vital signs: Temp Pulse Resp BP Pulse Ox 98.3 F 91 20 176/86 H 100 02/10/18 16:46 02/10/18 16:47 02/10/18 13:21 02/10/18 16:47 02/10/18 16:47 - Laboratory Result Diagrams: 02/10/18 14:28 Laboratory results interpreted by me: 02/10/18 14:28 Hgb 7.9 L Hct 26.8 L MCV 67 L MCH 19.7 L MCHC 29.4 L RDW 17.7 H Plt Count 775 H Doctor's Discharge - Discharge Clinical Impression: Pain Anemia Qualifiers: Anemia type: unspecified type Qualified Code(s): D64.9 - Anemia, unspecified Condition: Good Disposition: HOME, SELF-CARE Instructions: Anemia ([facility]), Oral Narcotic Medication ([facility]) Prescriptions: Morphine Sulfate [Morphine Ir 15 Mg Tablet] 15 mg PO BID #14 tablet Referrals: GILLIAN MENEZES MD [ACTIVE STAFF] - Follow up as needed
[2018-02-10 16:48] VITALS: BP 176/86
== END 2018-02-10 16:49 | disposition home or self-care (01) ==
LOC: ER 13:01
DX: G89.29 Other chronic pain (principal); R07.81 Pleurodynia; M54.9 Dorsalgia, unspecified; D64.9 Anemia, unspecified; N92.0 Excessive and frequent menstruation with regular cycle; Z79.899 Other long term (current) drug therapy; I10 Essential (primary) hypertension; Z88.5 Allergy status to narcotic agent; Z88.7 Allergy status to serum and vaccine; Z88.0 Allergy status to penicillin; Z88.6 Allergy status to analgesic agent; Z98.84 Bariatric surgery status
CPT/HCPCS: 99284; 36415; 85025; A9270

== ENCOUNTER 2018-03-12 11:45 | Day surgery (SDC) | payer MEDICARE, MEDICAID ==
[2018-03-12] MEDS ORDERED: ONDANSETRON HCL INJ/PF 4 MG/2 ML SDV ONE (11:55)
[2018-03-12] MEDS ORDERED: DIPHENHYDRAMINE HCL 50 MG/ML VIAL ONE (11:55)
[2018-03-12] MEDS ORDERED: FLUMAZENIL INJ 0.5 MG/5 ML VIAL ONE (11:56)
[2018-03-12] MEDS ORDERED: NALOXONE HCL INJ/PF 0.4 MG/1 ML SDV ONE (11:56)
[2018-03-12] MEDS ORDERED: GLUCAGON,HUMAN RECOMB 1 MG INJ ONE (11:56)
[2018-03-12] MEDS ORDERED: EPINEPHRINE INJ 1 MG/10 ML DISP.SYRIN ONE (11:56)
[2018-03-12] MEDS: MIDAZOLAM 2 MG/2 ML INJ ONE ×2 (12:12→12:15)
[2018-03-12] MEDS: FENTANYL CITRATE INJ/PF 100 MCG/2 ML AMPUL ONE ×2 (12:14→12:17)
--- NOTE | 2018-03-12 12:29 | Operative Report ---
Operative Report DATE OF SURGERY: 03/12/18 Operative Report: The risks benefits and alternatives of the procedure explained to the patient in detail and informed consent is obtained .A GIF Olympus video scope was inserted into the patient's mouth and hypopharynx, the esophagus is identified intubated and insufflated, the scope was then advanced through the esophagus stomach and duodenum, retroflexion maneuver is done, the esophagus stomach and first and second portions of the duodenum examined PREOPERATIVE DIAGNOSIS: Follow-up of gastrojejunostomy ulcer POSTOPERATIVE DIAGNOSIS: Gastritis status post biopsy. Healed ulcer OPERATION: EGD with biopsy SURGEON: WILBERTO ADAMS ANESTHESIA: Moderate Sedation - 4 mg of Versed, 75 mcg of fentanyl. Conscious sedation monitoring time 30 minutes. TISSUE REMOVED OR ALTERED: As noted above. COMPLICATIONS: None. ESTIMATED BLOOD LOSS: None. INTRAOPERATIVE FINDINGS: As noted above. PROCEDURE: Patient tolerated the procedure well. No immediate postprocedure complications are noted. Patient discharged in good condition. Discharge date 03/12/2018. Discharge diet: Regular. Discharge activity: Regular. 2-3-week follow-up to discuss findings. Patient is instructed call the office or proceed to the emergency room should there be any further problems or questions. Wait on the pathology.
[2018-03-12 13:38] VITALS: BP 145/83
== END 2018-03-12 13:55 | disposition home or self-care (01) ==
LOC: END 11:45
PROVIDERS: ATTEND Internal Medicine Gastroenterology
DX: Z09 Encounter for follow-up examination after completed treatment for conditions other than malignant neoplasm (principal); Z87.11 Personal history of peptic ulcer disease; K29.70 Gastritis, unspecified, without bleeding; I10 Essential (primary) hypertension; F17.210 Nicotine dependence, cigarettes, uncomplicated; K64.8 Other hemorrhoids; Z88.0 Allergy status to penicillin; Z88.7 Allergy status to serum and vaccine
CPT/HCPCS: 43239; 88305 ×2; J2250; J3010; J0171; J1200; J1610; J2310; J2405; J3490

== ENCOUNTER → 2018-03-27 | Outpatient (CLI) | payer MEDICARE, MEDICAID ==
--- NOTE | 2018-03-27 15:30 | RADIOLOGY REPORT (SQ) ---
EXAM DESCRIPTION: CHEST PA/LATERAL COMPLETED DATE/TIME: 03/27/2018 3:09 pm REASON FOR STUDY: PRE-OP COMPARISON: CT chest 02/05/2018 Chest films 01/14/2018 EXAM PARAMETERS: NUMBER OF VIEWS: two views TECHNIQUE: Digital Frontal and Lateral radiographic views of the chest acquired. RADIATION DOSE: NA LIMITATIONS: none FINDINGS: LUNGS AND PLEURA: No opacities, masses or pneumothorax. No pleural effusion. MEDIASTINUM AND HILAR STRUCTURES: No masses or contour abnormalities. HEART AND VASCULAR STRUCTURES: Heart normal size. No evidence for failure. BONES: No acute findings. HARDWARE: None in the chest. OTHER: No other significant finding. IMPRESSION: NO SIGNIFICANT RADIOGRAPHIC FINDING IN THE CHEST. TECHNICAL DOCUMENTATION: JOB ID: [id number] [employer]- All Rights Reserved Reading location - IP/workstation name: [email or web address]
[2018-03-27 15:52] LABS: ABSOLUTE BASOPHILS # (AUTO) 0.1 10^3/uL (0.0-0.2); ABSOLUTE EOSINOPHILS # (AUTO) 0.1 10^3/uL (0.0-0.6); ABSOLUTE LYMPHOCYTES (AUTO) 1.7 10^3/uL (0.5-4.7); ABSOLUTE MONOCYTES (AUTO) 0.5 10^3/uL (0.1-1.4); ABSOLUTE NEUT (AUTO) 3.1 10^3/uL (1.7-8.2); BASOPHILS % (AUTO) 1.1 % (0-2); EOSINOPHILS % (AUTO) 2.6 % (0-6); HEMATOCRIT 32.5 % (36.0-47.0); HEMOGLOBIN 10.1 g/dL (12.0-15.5); LYMPHOCYTES % (AUTO) 31.2 % (13-45); MEAN CORPUSCULAR HEMOGLOBIN 23.7 pg (27.0-33.4); MEAN CORPUSCULAR VOLUME 77 fl (80-97); MONOCYTES % (AUTO) 8.3 % (3-13); PLATELET COUNT 247 10^3/uL (150-450); RED BLOOD COUNT 4.24 10^6/uL (3.72-5.28); RED CELL DISTRIBUTION WIDTH 23.8 % (11.5-14.0); SEGMENTED NEUTROPHILS % (AUTO) 56.8 % (42-78); TOTAL CELLS COUNTED % (AUTO) 100 %; WHITE BLOOD COUNT 5.4 10^3/uL (4.0-10.5)
[2018-03-27 16:11] LABS: ALANINE AMINOTRANSFERASE 22 U/L (9-52); ALBUMIN 4.2 g/dL (3.5-5.0); ALKALINE PHOSPHATASE 82 U/L (38-126); ANION GAP 12 (5-19); ASPARTATE AMINO TRANSFERASE 22 U/L (14-36); BILIRUBIN,DIRECT 0.1 mg/dL (0.0-0.4); BILIRUBIN,TOTAL 0.3 mg/dL (0.2-1.3); BLOOD UREA NITROGEN 12 mg/dL (7-20); CALCIUM 9.5 mg/dL (8.4-10.2); CARBON DIOXIDE 23 mmol/L (22-30); CHLORIDE 108 mmol/L (98-107); GLUCOSE 73 mg/dL (75-110); POTASSIUM 4.1 mmol/L (3.6-5.0); SODIUM 142.7 mmol/L (137-145); TOTAL PROTEIN 6.9 g/dL (6.3-8.2)
--- NOTE | 2018-03-27 18:15 | EKG REPORT ---
SEVERITY:- NORMAL ECG - SINUS RHYTHM : Confirmed by: Mercy Yousif MD 27-Mar-2018 18:14:33
== END ==
LOC: OD 14:33
PROVIDERS: ATTEND Surgery
DX: Z01.810 Encounter for preprocedural cardiovascular examination (principal); Z01.811 Encounter for preprocedural respiratory examination; Z01.812 Encounter for preprocedural laboratory examination; I13.0 Hypertensive heart and chronic kidney disease with heart failure and stage 1 through stage 4 chronic kidney disease, or unspecified chronic kidney disease; E11.22 Type 2 diabetes mellitus with diabetic chronic kidney disease; N18.9 Chronic kidney disease, unspecified; I50.9 Heart failure, unspecified; E66.01 Morbid (severe) obesity due to excess calories; I99.9 Unspecified disorder of circulatory system; J44.9 Chronic obstructive pulmonary disease, unspecified; G47.30 Sleep apnea, unspecified; Z87.891 Personal history of nicotine dependence
CPT/HCPCS: 36415; 71046; 80053; 85025; 93005; 93010

== ENCOUNTER 2018-07-03 17:09 | Emergency (ER) | payer MEDICARE, MEDICAID ==
[2018-07-03] MEDS ORDERED: LIDOCAINE 5% (700 MG) TRANSDERMAL ADH..PATCH TP ONE (18:33)
--- NOTE | 2018-07-03 19:13 | RADIOLOGY REPORT (SQ) ---
EXAM DESCRIPTION: CHEST 2 VIEWS COMPLETED DATE/TIME: 07/03/2018 6:40 pm REASON FOR STUDY: rib pain COMPARISON: 04/22/2017 EXAM PARAMETERS: NUMBER OF VIEWS: two views TECHNIQUE: Digital Frontal and Lateral radiographic views of the chest acquired. RADIATION DOSE: NA LIMITATIONS: none FINDINGS: LUNGS AND PLEURA: No opacities, masses or pneumothorax. No pleural effusion. MEDIASTINUM AND HILAR STRUCTURES: No masses or contour abnormalities. HEART AND VASCULAR STRUCTURES: Heart normal size. No evidence for failure. BONES: No acute findings. HARDWARE: None in the chest. OTHER: No other significant finding. IMPRESSION: NO ACUTE RADIOGRAPHIC FINDING IN THE CHEST. TECHNICAL DOCUMENTATION: JOB ID: [id number] [employer]- All Rights Reserved Reading location - IP/workstation name: [email or web address]
--- NOTE | 2018-07-03 20:32 | ER Document Report ---
HPI - HPI Patient complains to provider of: Right rib pain Time Seen by Provider: 07/03/18 19:38 Pain Level: 5 - RESPIRATORY Respiratory: REPORTS: Coughing - smokers cough - REPRODUCTIVE Reproductive: DENIES: : Past Medical History - Social History Smoking Status: Current Every Day Smoker Chew tobacco use (# tins/day): No Frequency of alcohol use: None Drug Abuse: None Family History: Arthritis, CAD, DM, Hypertension, Other - No TIAs. denies: CVA Patient has suicidal ideation: No Patient has homicidal ideation: No - Past Medical History Cardiac Medical History: Reports: Hx Hypertension Denies: Hx Coronary Artery Disease, Hx Heart Attack Pulmonary Medical History: Denies: Hx Asthma, Hx Bronchitis, Hx COPD, Hx Pneumonia Neurological Medical History: Reports: Hx Migraine. Denies: Hx Cerebrovascular Accident, Hx Seizures Endocrine Medical History: Reports: Hx Hypothyroidism - Has not taken medication in years and is not with concern for this any more Renal/ Medical History: Reports: Hx Ovarian Cysts. Denies: Hx Peritoneal Dialysis Musculoskeletal Medical History: Reports Hx Arthritis - HANDS, BACK Psychiatric Medical History: Reports: Hx Depression Past Surgical History: Reports: Hx Section - 1, Hx Gastric Bypass Surgery - in 1999, Hx Genitourinary Surgery - gastric bypass, Hx Hysterectomy - Immunizations Hx Diphtheria, Pertussis, Tetanus Vaccination: No Vertical Provider Document - CONSTITUTIONAL Notes: Well-appearing 58-year-old female presents to the emergency department for chronic rib pain. She states that she was reaching for a bag in her car and she bumped her right side on the dashboard and immediately felt a pop and was in pain. this happened on Sunday at 1830 she is currently seeing pain management but states narcotic medication is not working. She denies shortness of breath, complains of chest wall pain, denies nausea or vomiting, denies abdominal pain, denies weakness or paresthesias in her extremities. Denies any recent illness. Patient states her goal is to just get the pain under control without narcotic use. - INFECTION CONTROL TRAVEL OUTSIDE OF THE [place] IN LAST 30 DAYS: No Course - Re-evaluation Re-evalutation: 07/03/18 22:41 Well up well-appearing 58-year-old female with chronic right rib pain presents to the emergency department after bumping her ribs against the dashboard on Sunday. She said she is unable to control the pain. She is seen by pain management. 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 Chest x-ray was done shows no evidence of rib fracture or any pathology she did have a recent CT chest last year which was negative for any concerning lesions or occult fractures. Unclear to the etiology but could potentially be she is susceptible to costochondritis. I told her she needs to follow-up with her primary care doctor. We placed a lidocaine patch and she did report relief. Plan is to prescribe her lidocaine patch at her request and she is safe to discharge home. - Vital Signs Vital signs: Temp Pulse Resp BP Pulse Ox 98.7 F 90 18 168/105 H 99 07/03/18 17:34 07/03/18 17:34 07/03/18 17:34 07/03/18 17:34 07/03/18 17:34 Discharge - Discharge Clinical Impression: Rib pain on right side Condition: Good Disposition: HOME, SELF-CARE Instructions: Anti-Inflammatory Medication ([facility]), Chest Wall Pain ([facility]) Additional Instructions: He was seen in the emergency department this evening for your chronic rib pain. As you understand there was nothing seen on chest x-ray this could be due to the muscles in between your ribs getting inflamed and mildly displacing your ribs causing the pain. It is unclear though why this is happening. I prescribed you with Lidoderm patches that you can use and apply once daily to help with pain and discomfort. If you develop acute shortness of breath, have intractable pain, or have any other concerning symptoms please merely return to the emergency department. Prescriptions: Lidocaine [Lidoderm 5% (700 mg) Transdermal Patch] 1 patch TP DAILY #30 adh..patch Forms: Return to Work Referrals: ROSA BAER, CLINICAL RESEARCH ASSOCIATE-C [Primary Care Provider] - Follow up as needed
[2018-07-03 20:34] VITALS: BP 168/114
== END 2018-07-03 20:34 | disposition home or self-care (01) ==
LOC: ER 17:09
DX: R07.81 Pleurodynia (principal); W22.09XA Striking against other stationary object, initial encounter; Y93.89 Activity, other specified; Y92.810 Car as the place of occurrence of the external cause; G89.29 Other chronic pain; F17.200 Nicotine dependence, unspecified, uncomplicated; R05 Cough; I10 Essential (primary) hypertension; Z82.49 Family history of ischemic heart disease and other diseases of the circulatory system
CPT/HCPCS: 71046; 99283

== ENCOUNTER 2018-07-19 10:50 | Emergency (ER) | payer MEDICARE, MEDICAID ==
[2018-07-19 11:13] VITALS: BP 195/109
== END 2018-07-19 11:45 | disposition left against medical advice (07) ==
LOC: ER 10:50
DX: Z53.21 Procedure and treatment not carried out due to patient leaving prior to being seen by health care provider (principal); R03.0 Elevated blood-pressure reading, without diagnosis of hypertension

== ENCOUNTER 2018-09-25 19:00 | Emergency (ER) | payer MEDICARE, MEDICAID ==
--- NOTE | 2018-09-25 19:28 | ER Document Report ---
ED Medical Screen (RME) - General Chief Complaint: Numbness of Arm Stated Complaint: ARM NUMBNESS Time Seen by Provider: 09/25/18 19:21 Primary Care Provider: ROSA BAER FNP-C [Primary Care Provider] - Follow up as needed Mode of Arrival: Ambulatory Information source: Patient Notes: Patient presents to the emergency department with complaints of left arm numbn ess that some started sometime this week. She has a history of TIA. Also complains of nausea. Reports she is a little bit more short of breath than normal. Denies vomiting diarrhea. Denies history of cardiac disease. Denies shortness of breath. No obvious neuro deficits noted. 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 I have greeted and performed a rapid initial assessment of this patient. A comprehensive ED assessment and evaluation of the patient, analysis of test results and completion of the medical decision making process will be conducted by additional ED providers. Dictation of this chart was performed using voice recognition software; therefore, there may be some unintended grammatical errors. TRAVEL OUTSIDE OF THE [place] IN LAST 30 DAYS: No - Related Data Allergies/Adverse Reactions: pentazocine HCl [From Talwin Compound] Allergy (Severe, Verified 09/25/18 19:03) AMS Tetanus Vaccines and Toxoid [Tetanus] Allergy (Severe, Verified 09/25/18 19:03) AMS Penicillins Allergy (Mild, Verified 09/25/18 19:03) Rash aspirin [Aspirin] Allergy (Unknown, Verified 09/25/18 19:03) Past Medical History - Past Medical History Cardiac Medical History: Reports: Hx Hypertension Denies: Hx Coronary Artery Disease, Hx Heart Attack Pulmonary Medical History: Denies: Hx Asthma, Hx Bronchitis, Hx COPD, Hx Pneumonia Neurological Medical History: Reports: Hx Migraine. Denies: Hx Cerebrovascular Accident, Hx Seizures Endocrine Medical History: Reports: Hx Hypothyroidism - Has not taken medication in years and is not with concern for this any more Renal/ Medical History: Reports: Hx Ovarian Cysts. Denies: Hx Peritoneal Dialysis Musculoskeltal Medical History: Reports Hx Arthritis - HANDS, BACK Psychiatric Medical History: Reports: Hx Depression Past Surgical History: Reports: Hx Section - 1, Hx Gastric Bypass Surgery - in 1999, Hx Genitourinary Surgery - gastric bypass, Hx Hysterectomy - Immunizations Hx Diphtheria, Pertussis, Tetanus Vaccination: No Physical Exam - Vital signs Vitals: Temp Pulse Resp BP Pulse Ox 98.1 F 107 H 18 131/84 H 98 09/25/18 19:08 09/25/18 19:08 09/25/18 19:08 09/25/18 19:08 09/25/18 19:08 Course - Vital Signs Vital signs: Temp Pulse Resp BP Pulse Ox 98.1 F 107 H 18 131/84 H 98 09/25/18 19:08 09/25/18 19:08 09/25/18 19:08 09/25/18 19:08 09/25/18 19:08 Doctor's Discharge - Discharge Referrals: ROSA BAER, TIGIST-C [Primary Care Provider] - Follow up as needed
[2018-09-25 20:03] LABS: ABSOLUTE EOSINOPHILS # (AUTO) 0.1 10^3/uL (0.0-0.6); ABSOLUTE LYMPHOCYTES (AUTO) 2.3 10^3/uL (0.5-4.7); ABSOLUTE MONOCYTES (AUTO) 0.6 10^3/uL (0.1-1.4); BASOPHILS % (AUTO) 0.6 % (0-2); EOSINOPHILS % (AUTO) 0.9 % (0-6); HEMATOCRIT 42.4 % (36.0-47.0); HEMOGLOBIN 14.5 g/dL (12.0-15.5); LYMPHOCYTES % (AUTO) 29.1 % (13-45); MEAN CORPUSCULAR HEMOGLOBIN 32.1 pg (27.0-33.4); MEAN CORPUSCULAR HGB CONC 34.1 g/dL (32.0-36.0); MEAN CORPUSCULAR VOLUME 94 fl (80-97); MONOCYTES % (AUTO) 7.1 % (3-13); PLATELET COUNT 282 10^3/uL (150-450); RED BLOOD COUNT 4.51 10^6/uL (3.72-5.28); RED CELL DISTRIBUTION WIDTH 13.6 % (11.5-14.0); SEGMENTED NEUTROPHILS % (AUTO) 62.3 % (42-78); TOTAL CELLS COUNTED % (AUTO) 100 %; WHITE BLOOD COUNT 8.1 10^3/uL (4.0-10.5)
--- NOTE | 2018-09-25 20:13 | ER Document Report ---
ED General - General Chief Complaint: Numbness of Arm Stated Complaint: ARM NUMBNESS Time Seen by Provider: 09/25/18 20:12 Primary Care Provider: ROSA BAER FNP-C [Primary Care Provider] - Follow up as needed Mode of Arrival: Ambulatory Information source: Patient Notes: HISTORY OF PRESENT ILLNESS: Patient is a 58-year-old female with a past medical history of hypertension, chronic back pain, migraines, and depression who presents with intermittent left and right arm heaviness and numbness that comes and goes over the past 2 weeks. Patient reports that she had "a mini stroke in 2013" but denies any other symptoms. Location: Bilateral arms Onset: 2 weeks ago Provocation: Unknown Quality: Heaviness Radiation: None Severity: Moderate Timing: Intermittent History of headaches: None Recent head injury: None Vision changes: None Trouble walking: None Associated symptoms: No fevers or chills, no cough or congestion, no confusion/disorientation, no new medications or medication changes REVIEW OF SYSTEMS: CONSTITUTIONAL : Denies fever or chills, no sweats. Denies recent illness. EENT: Denies eye, ear, throat, or mouth pain or symptoms. Denies nasal or sinus congestion. CARDIOVASCULAR: Denies chest pain. RESPIRATORY: Denies cough, cold, or chest congestion. Denies shortness of breath, difficulty breathing, or wheezing. GASTROINTESTINAL: Denies abdominal pain. Denies nausea, vomiting, or diarrhea. Denies constipation. GENITOURINARY: Denies difficulty urinating, painful urination, burning, frequency, or blood in urine. FEMALE GENITOURINARY: Denies vaginal bleeding, abnormal or irregular periods. MUSCULOSKELETAL: Denies body aches. Denies neck or back pain or joint pain or swelling. SKIN: Denies rash or skin lesions. HEMATOLOGIC : Denies easy bruising or bleeding. LYMPHATIC: Denies swollen, enlarged glands. NEUROLOGICAL: Positive for intermittent bilateral arm numbness/heaviness. Denies altered mental status or loss of consciousness. Denies weakness or paralysis or loss of use of either side. Denies problems with gait or speech. Denies motor loss. PSYCHIATRIC: Denies anxiety or stress or depression. All other systems reviewed and negative. PHYSICAL EXAMINATION: GENERAL: Well-appearing, well-nourished and in no acute distress. HEAD: Atraumatic, normocephalic. No scalp deformity, depression, or crepitance. EYES: Pupils are 3 mm and equal/round/reactive to light, extraocular movements intact, sclera anicteric, conjunctiva are normal. ENT: Nares patent bilaterally, oropharynx clear without exudates or palatal petechia. Moist mucous membranes. No tonsil hypertrophy. NECK: Normal range of motion, supple without lymphadenopathy. LUNGS: Breath sounds present, equal, and clear to auscultation bilaterally. No wheezes, rales, or rhonchi. HEART: Regular rate and rhythm without murmurs, rubs, or gallops. 2+ peripheral pulses. Normal capillary refill. ABDOMEN: Soft, nontender, nondistended. Normoactive bowel sounds. No guarding, no rebound. No masses appreciated. BACK: Normal contour, no midline tenderness. Rectal exam deferred. GENITAL/PELVC: Deferred. EXTREMITIES: Normal range of motion, no pitting or edema. No cyanosis. NEUROLOGICAL: No focal neurological deficits. Cranial nerves III-XII grossly intact. Moves all extremities spontaneously and on command. PSYCH: Normal mood, normal affect. No suicidal thoughts/ideations. No homicidal thoughts/ideations. No hallucinations. SKIN: Warm, dry, normal turgor, no rashes or lesions noted. ASSESSMENT AND PLAN: This patient is a 58-year-old female who presents with intermittent bilateral arm heaviness and numbness that comes and goes. Neurological exam is completely normal, unlikely to be primary neurologic in origin. 1. Will obtain labs, urine, CT head, and reassess. 2. Will plan for discharge if workup is negative. TRAVEL OUTSIDE OF THE [place] IN LAST 30 DAYS: No - Related Data Allergies/Adverse Reactions: pentazocine HCl [From Talwin Compound] Allergy (Severe, Verified 09/25/18 19:03) AMS Tetanus Vaccines and Toxoid [Tetanus] Allergy (Severe, Verified 09/25/18 19:03) AMS Penicillins Allergy (Mild, Verified 09/25/18 19:03) Rash aspirin [Aspirin] Allergy (Unknown, Verified 09/25/18 19:03) Past Medical History - General Information source: Patient - Social History Smoking Status: Current Every Day Smoker Chew tobacco use (# tins/day): No Frequency of alcohol use: None Drug Abuse: None Lives with: Alone Family History: Arthritis, CAD, DM, Hypertension, Other - No TIAs. denies: CVA Patient has suicidal ideation: No Patient has homicidal ideation: No - Past Medical History Cardiac Medical History: Reports: Hx Hypertension Denies: Hx Coronary Artery Disease, Hx Heart Attack Pulmonary Medical History: Reports: None Denies: Hx Asthma, Hx Bronchitis, Hx COPD, Hx Pneumonia EENT Medical History: Reports: None Neurological Medical History: Reports: Hx Migraine. Denies: Hx Cerebrovascular Accident, Hx Seizures Endocrine Medical History: Reports: Hx Hypothyroidism - Has not taken medication in years and is not with concern for this any more Renal/ Medical History: Reports: Hx Ovarian Cysts. Denies: Hx Peritoneal Dialysis Malignancy Medical History: Reports: None GI Medical History: Reports: None Musculoskeletal Medical History: Reports Hx Arthritis - HANDS, BACK Skin Medical History: Reports None Psychiatric Medical History: Reports: Hx Depression Traumatic Medical History: Reports: None Infectious Medical History: Reports: None Past Surgical History: Reports: Hx Section - 1, Hx Gastric Bypass Surgery - in 1999, Hx Genitourinary Surgery - gastric bypass, Hx Hysterectomy - Immunizations Hx Diphtheria, Pertussis, Tetanus Vaccination: No Physical Exam - Vital signs Vitals: Temp Pulse Resp BP Pulse Ox 98.1 F 107 H 18 131/84 H 98 09/25/18 19:08 09/25/18 19:08 09/25/18 19:08 09/25/18 19:08 09/25/18 19:08 Course - Re-evaluation Re-evalutation: 09/25/18 23:[address] is negative. Patient will be discharged home with return precautions and follow-up with her primary physician. Patient voices both understanding and agreeing with the plan. - Vital Signs Vital signs: Temp Pulse Resp BP Pulse Ox 98.1 F 87 19 124/85 99 09/25/18 19:08 09/25/18 21:49 09/25/18 21:49 09/25/18 21:49 09/25/18 21:49 - Laboratory Result Diagrams: 09/25/18 19:47 09/25/18 19:47 Laboratory results interpreted by me: 09/25/18 09/25/18 19:47 23:05 BUN 32 H Est GFR (Non-Af Amer) 53 L Calcium 10.6 H Creatine Kinase 153 H Total Protein 8.6 H Albumin 5.2 H Urine Blood SMALL H - Diagnostic Test Radiology reviewed: Image reviewed, Reports reviewed Discharge - Discharge Clinical Impression: Bilateral arm weakness Condition: Good Disposition: HOME, SELF-CARE Instructions: Weakness ([facility]) Additional Instructions: You have been evaluated in the Emergency Department for intermittent numbness and weakness of your arms. While here, you had blood work and a CAT scan of your head that were both normal and it is now safe to be discharged home. Please follow-up with your primary physician as instructed in 1 week to be rechecked. Return to the Emergency Department if you experience confusion/disorientation, difficulty walking, vision changes, weakness in one half of your body, or any other concerning symptoms. Referrals: ROSA BAER FNP-C [Primary Care Provider] - Follow up as needed Print Language: Bolivian
[2018-09-25 20:20] LABS: ALANINE AMINOTRANSFERASE 18 U/L (9-52); ALBUMIN 5.2 g/dL (3.5-5.0); ALKALINE PHOSPHATASE 114 U/L (38-126); ANION GAP 13 (5-19); ASPARTATE AMINO TRANSFERASE 25 U/L (14-36); BILIRUBIN,DIRECT 0.3 mg/dL (0.0-0.4); BILIRUBIN,TOTAL 0.4 mg/dL (0.2-1.3); BLOOD UREA NITROGEN 32 mg/dL (7-20); CALCIUM 10.6 mg/dL (8.4-10.2); CARBON DIOXIDE 24 mmol/L (22-30); CHLORIDE 101 mmol/L (98-107); CREATINE KINASE 153 U/L (30-135); GLUCOSE 104 mg/dL (75-110); POTASSIUM 4.9 mmol/L (3.6-5.0); SODIUM 138.2 mmol/L (137-145); TOTAL PROTEIN 8.6 g/dL (6.3-8.2)
--- NOTE | 2018-09-25 20:30 | RADIOLOGY REPORT (SQ) ---
EXAM DESCRIPTION: [facility]: XR CHEST 2 VIEWS Views: 2 CLINICAL HISTORY: 58 years Female, sob, Left arm numb pain COMPARISON: 03/27/2018, 04/22/2017 FINDINGS: The lungs are clear. No pneumothorax or significant pleural effusion. Cardiomediastinal silhouette is within normal limits. Heart size is normal. Bony structures are unremarkable for age. IMPRESSION: 1. No acute cardiothoracic abnormality.
[2018-09-25 20:31] LABS: CREATINE KINASE MB 1.16 ng/mL (<4.55)
[2018-09-25 20:33] LABS: TROPONIN I < 0.012 ng/mL
--- NOTE | 2018-09-25 20:47 | RADIOLOGY REPORT (SQ) ---
CT HEAD WITHOUT IV CONTRAST HISTORY: Left arm numbness and pain. COMPARISON: None. TECHNIQUE: CT scan of the brain without IV contrast. This exam was performed according to our departmental dose-optimization program, which includes automated exposure control, adjustment of the mA and/or kV according to patient size and/or use of iterative reconstruction technique. FINDINGS: The ventricles, cisterns, and sulci are unremarkable. No focal white matter lesions are seen. No evidence of acute infarction, intracranial hemorrhage, extra-axial fluid collection, or midline shift. Minimal secretions in the maxillary sinuses. No depressed skull fracture. IMPRESSION: No acute intracranial findings.
[2018-09-25 23:17] LABS: APPEARANCE,URINE CLEAR; BILIRUBIN,URINE NEGATIVE (NEGATIVE); COLOR,URINE YELLOW; GLUCOSE, URINE NEGATIVE (NEGATIVE); KETONES,URINE NEGATIVE (NEGATIVE); LEUKOCYTE ESTERASE,URINE NEGATIVE (NEGATIVE); NITRITE,URINE NEGATIVE (NEGATIVE); PROTEIN,URINE NEGATIVE (NEGATIVE); URINE SPECIFIC GRAVITY 1.014; UROBILINOGEN,URINE NEGATIVE mg/dL (<2.0)
[2018-09-26 00:20] VITALS: BP 118/78
--- NOTE | 2018-09-26 10:58 | EKG REPORT ---
SEVERITY:- ABNORMAL ECG - SINUS RHYTHM NONSPECIFIC T ABNORMALITIES, LATERAL LEADS : Confirmed by: Estrada Gonzalez 26-Sep-2018 10:57:27
== END 2018-09-26 00:20 | disposition home or self-care (01) ==
LOC: ER 19:00
DX: R53.1 Weakness (principal); R20.0 Anesthesia of skin; I10 Essential (primary) hypertension; F17.200 Nicotine dependence, unspecified, uncomplicated; Z88.6 Allergy status to analgesic agent; Z88.7 Allergy status to serum and vaccine; Z88.0 Allergy status to penicillin
CPT/HCPCS: 36415; 70450; 71046; 80053; 81001; 82550; 82553; 84484; 85025; 93005; 93010; 99284

== ENCOUNTER 2018-12-14 14:20 | Emergency (ER) | payer MEDICARE, MEDICAID ==
[2018-12-14] MEDS ORDERED: DEXAMETHASONE SOD PHOS INJ 10 MG/1 ML VIAL IM ONE (16:11)
[2018-12-14] MEDS ORDERED: LIDOCAINE 5% (700 MG) TRANSDERMAL ADH..PATCH TP ONE (16:11)
[2018-12-14] MEDS ORDERED: KETOROLAC TROMETHAMINE INJ/PF 30 MG/1 ML SDV IM ONE (16:11)
--- NOTE | 2018-12-14 16:12 | ER Document Report ---
ED Neck/Back Problem - General Chief Complaint: Back Pain Stated Complaint: BACK PAIN Time Seen by Provider: 12/14/18 15:44 Primary Care Provider: ROSA SMITH FNP-C [Primary Care Provider] - Follow up as needed Mode of Arrival: Ambulatory Information source: Patient Notes: 58-year-old female presented to ED for complaint of exacerbation of chronic back pain. She states [facility] and she center took pain management and they put her on gabapentin and when she told her that made her feel loopy and she could not go to work they changed her to horizant. She states this has the same effect and she is not able to take it when she has to work the next day as it makes her too loopy to be able to work or drive. She states Tylenol and ice do not help her pain. She states she has had Toradol and Decadron and Lidoderm patches in the past and that helped but she does not have that to take at home. Patient denies any loss of control of bowel or bladder any new injuries or any loss of control of lower extremities. She denies any saddle anesthesia. She states that they have given her epidurals a couple times but these have not worked. She states she just has constant spasms. Patient is alert oriented respirations regular and unlabored able to get up and down with no trouble is able to walk with a even steady gait. TRAVEL OUTSIDE OF THE [place] IN LAST 30 DAYS: No - HPI Patient complains to provider of: Upper back Onset: Other - Chronic Onset: Chronic Quality of pain: Sharp - Throbbing spasming Severity: Moderate Pain Level: 3 Recent injury: No Associated symptoms: Like prior neck/back pain Exacerbated by: Movement of trunk Relieved by: Nothing Similar symptoms previously: Yes Recently seen / treated by doctor: Yes - Related Data Allergies/Adverse Reactions: pentazocine HCl [From Talwin Compound] Allergy (Severe, Verified 12/14/18 14:24) AMS Tetanus Vaccines and Toxoid [Tetanus] Allergy (Severe, Verified 12/14/18 14:24) AMS Penicillins Allergy (Mild, Verified 12/14/18 14:24) Rash aspirin [Aspirin] Allergy (Unknown, Verified 12/14/18 14:24) Past Medical History - General Information source: Patient - Social History Smoking Status: Current Every Day Smoker Cigarette use (# per day): Yes - 1/2 pack/day Smoking Education Provided: Yes - 4 minutes Frequency of alcohol use: None Drug Abuse: None Lives with: Family - Her adult son Family History: Arthritis, CAD, DM, Hypertension, Other - No TIAs. denies: CVA Patient has suicidal ideation: No Patient has homicidal ideation: No - Past Medical History Cardiac Medical History: Reports: Hx Hypertension Denies: Hx Coronary Artery Disease, Hx Heart Attack Pulmonary Medical History: Denies: Hx Asthma, Hx Bronchitis, Hx COPD, Hx Pneumonia EENT Medical History: Reports: None Neurological Medical History: Reports: Hx Migraine Endocrine Medical History: Reports: Hx Hypothyroidism - Has not taken medication in years and is not with concern for this any more Renal/ Medical History: Reports: Hx Ovarian Cysts Malignancy Medical History: Reports: None GI Medical History: Reports: None Musculoskeletal Medical History: Reports Hx Arthritis - HANDS, BACK Skin Medical History: Reports None Psychiatric Medical History: Reports: Hx Depression Traumatic Medical History: Reports: None Infectious Medical History: Reports: None Past Surgical History: Reports: Hx Section - 1, Hx Gastric Bypass Surgery - in 1999, Hx Hysterectomy - Immunizations Hx Diphtheria, Pertussis, Tetanus Vaccination: No Review of Systems - Review of Systems Constitutional: No symptoms reported EENT: No symptoms reported Cardiovascular: No symptoms reported Respiratory: No symptoms reported Gastrointestinal: No symptoms reported Genitourinary: No symptoms reported Female Genitourinary: No symptoms reported Musculoskeletal: Back pain, Muscle pain, Muscle stiffness Skin: No symptoms reported Hematologic/Lymphatic: No symptoms reported Neurological/Psychological: No symptoms reported -: Yes All other systems reviewed and negative Physical Exam - Vital signs Vitals: Temp Pulse Resp BP Pulse Ox 98.5 F 78 20 100/77 100 12/14/18 14:31 12/14/18 14:31 12/14/18 14:31 12/14/18 14:31 12/14/18 14:31 Interpretation: Normal - General General appearance: Appears well, Alert - HEENT Head: Normocephalic, Atraumatic Eyes: Normal Pupils: PERRL - Respiratory Respiratory status: No respiratory distress Chest status: Nontender Breath sounds: Normal Chest palpation: Normal - Cardiovascular Rhythm: Regular Heart sounds: Normal auscultation Murmur: No - Abdominal Inspection: Normal Distension: No distension Bowel sounds: Normal Tenderness: Nontender Organomegaly: No organomegaly - Back Back: Normal, Tender. No: Deformity/step-off, CVA tenderness, Vertebra tenderness, Scars, Scoliosis, Wounds - Extremities General upper extremity: Normal inspection, Nontender, Normal color, Normal ROM, Normal temperature General lower extremity: Normal inspection, Nontender, Normal color, Normal ROM, Normal temperature, Normal weight bearing. No: Marilyn's sign - Neurological Neuro grossly intact: Yes Cognition: Normal Orientation: AAOx4 [place] Coma Scale Eye Opening: Spontaneous Sophie Coma Scale Verbal: Oriented [place] Coma Scale Motor: Obeys Commands [place] Coma Scale Total: 15 Speech: Normal Motor strength normal: LUE, RUE, LLE, RLE Sensory: Normal - Psychological Associated symptoms: Normal affect, Normal mood - Skin Skin Temperature: Warm Skin Moisture: Dry Skin Color: Normal Course - Re-evaluation Re-evalutation: 12/14/18 17:51 After performing a Medical Screening Examination, I estimate there is LOW risk for EXPANDING OR RUPTURED ABDOMINAL AORTIC ANEURYSM, CAUDA EQUINA SYNDROME, EPIDURAL MASS LESION, or HERNIATED DISK CAUSING SEVERE SPINAL STENOSIS, thus I consider the discharge disposition reasonable. I have reevaluated this patient multiple times and no significant life threatening changes are noted. The patient and I have discussed the diagnosis and risks, and we agree with discharging home and close follow-up. We also discussed returning to the Emergency Department immediately if new or worsening symptoms occur with the understanding that symptoms and presentations can change. We have discussed the symptoms which are most concerning (e.g., saddle anesthesia, urinary or bowel incontinence or retention, changing or worsening pain) that necessitate imm ediate return. - Vital Signs Vital signs: Temp Pulse Resp BP Pulse Ox 98.2 F 76 17 110/72 99 12/14/18 16:43 12/14/18 16:43 12/14/18 16:43 12/14/18 16:43 12/14/18 16:43 Discharge - Discharge Clinical Impression: Chronic bilateral back pain Qualifiers: Back pain location: thoracic back pain Qualified Code(s): M54.6 - Pain in thoracic spine Condition: Stable Disposition: HOME, SELF-CARE Additional Instructions: Chronic Back Pain Chronic back pain (pain persisting longer than three months) is a common problem. A medical evaluation can look for herniated disc, arthritis, osteoporosis, tumors, and infections. But at least half the time, there's no obvious treatable cause. Anxiety and depression tend to worsen back pain. Ibuprofen or other anti-inflammatory medicine can help. A heating pad, used for 15-20 minutes at a time, can ease pain. For this type of back pain, narcotic medicines should be avoided. Muscle relaxers are rarely helpful unless you're having spasms. Activity is important. Find an aerobic exercise program that your back can tolerate. Too much rest makes back pain worse. Specific back exercises are usually prescribed to strengthen the back and abdominal muscles. Often, a physical therapist can help. Avoid heavy lifting, working while bent over, or standing with both knees straight. Most back pain patients do better with a firm mattress. If new symptoms of a "herniated disc" (radiation of pain, numbness, or tingling down the back of the leg or weakness in the leg) occur, you should be re-examined. Toradol Injection You have been given an injection of ketorolac tromethamine (Toradol). This is an excellent, safe drug for pain control. It also has potent antiinflammatory action. You should have significant pain relief within about one hour. Toradol is not addicting and is non-sedating. It does not interfere with driving or work. Call or return if you develop itching, hives, shortness of breath, or rash. STEROID MEDICATION: You have been given an injection of medicine of the cortisone/steroid class. This medication is used to control inflammation or allergy. It is often continued as a pill for a short period of time, until the acute process subsides. There are usually no side effects from short-term use of cortisone-like medications. Some persons feel an increased sense of well-being and are not sleepy at bedtime. Long-term use of cortisone medications is best avoided, unless required for a severe condition. If your condition does not remit, or relapses after the course of corticosteroid medication, you should consult your physician. You have been treated with a Lidoderm patch in the emergency room. She states these have helped you in the past at the dosage you given in the emergency room but the ones [id number] did not help. Try Aspercreme lidocaine cream to the area turning 12 hours after you remove the lidocaine patch. You need to call your pain management doctor tomorrow to let them know that you are still having loopy feeling and cannot work when you take your new medication. FOLLOW-UP CARE: If you have been referred to a physician for follow-up care, call the physicians office for an appointment as you were instructed or within the next two days. If you experience worsening or a significant change in your symptoms, notify the physician immediately or return to the Emergency Department at any time for re-evaluation. Prescriptions: Cyclobenzaprine HCl [Flexeril 10 mg Tablet] 10 mg PO TIDP PRN #15 tab PRN Reason: Forms: Smoking Cessation Education, Return to Work Referrals: ROSA SMITH FNP-C [Primary Care Provider] - Follow up as needed
[2018-12-14 16:47] VITALS: BP 110/72
== END 2018-12-14 16:44 | disposition home or self-care (01) ==
LOC: ER 14:20
DX: M54.6 Pain in thoracic spine (principal); M54.9 Dorsalgia, unspecified; G89.29 Other chronic pain; Z79.899 Other long term (current) drug therapy; F17.210 Nicotine dependence, cigarettes, uncomplicated; I10 Essential (primary) hypertension
CPT/HCPCS: 99406; 99283; 96372; J1885; J1100

== ENCOUNTER 2019-04-12 17:54 | Emergency (ER) | payer MEDICARE, MEDICAID ==
[2019-04-12 17:57] VITALS: BP 187/102
--- NOTE | 2019-04-12 18:19 | ER Document Report ---
HPI - HPI Patient complains to provider of: low back Time Seen by Provider: 04/12/19 18:12 Onset: Last week Onset/Duration: Persistent Quality of pain: Achy Pain Level: 5 Context: Patient presents complaining of flareup of her chronic low back pain. 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 Patient denies any new injury. Patient denies any radiculopathy or paresthesia. No fever. No urinary retention or incontinence. Pain is typical flareups that she has had in the past. Patient is in the process of getting a new pain management provider to follow-up with. Associated Symptoms: Other - Low back pain. denies: Fever, Headache Exacerbated by: Movement Relieved by: Denies Similar symptoms previously: Yes Recently seen / treated by doctor: No - ROS ROS below otherwise negative: Yes Systems Reviewed and Negative: Yes All other systems reviewed and negative - CONSTITUTIONAL Constitutional: DENIES: Fever, Chills - NEURO Neurology: DENIES: Headache, Weakness - MUSCULOSKELETAL Musculoskeletal: REPORTS: Back Pain. DENIES: Extremity pain - DERM Skin Color: Normal Skin Problems: None Past Medical History - General Information source: Patient - Social History Smoking Status: Never Smoker Frequency of alcohol use: None Drug Abuse: None Occupation: Grocery store Family History: Arthritis, CAD, DM, Hypertension, Other - No TIAs. denies: CVA Patient has suicidal ideation: No Patient has homicidal ideation: No - Past Medical History Cardiac Medical History: Reports: Hx Hypercholesterolemia, Hx Hypertension Neurological Medical History: Reports: Hx Migraine Endocrine Medical History: Reports: Hx Hypothyroidism - Has not taken medication in years and is not with concern for this any more Renal/ Medical History: Reports: Hx Ovarian Cysts. Denies: Hx Peritoneal Dialysis Musculoskeletal Medical History: Reports Hx Arthritis - HANDS, BACK Psychiatric Medical History: Reports: Hx Depression Past Surgical History: Reports: Hx Section - 1, Hx Gastric Bypass Surgery - in 1999, Hx Genitourinary Surgery - gastric bypass, Hx Hysterectomy - Immunizations Hx Diphtheria, Pertussis, Tetanus Vaccination: No Vertical Provider Document - CONSTITUTIONAL Agree With Documented VS: Yes Exam Limitations: No Limitations General Appearance: WD/WN, No Apparent Distress Notes: PHYSICAL EXAMINATION: GENERAL: Well-appearing, well-nourished and in no acute distress. HEAD: Atraumatic, normocephalic. EYES: sclera clear, anicteric, conjunctiva are normal. ENT: nares patent, Moist mucous membranes. NECK: Normal range of motion, supple no lymphadenopathy LUNGS: respirations unlabored HEART: Regular rate and rhythm without murmurs EXTREMITIES: Normal range of motion, no pitting or edema. No cyanosis. Gait normal, pt ambulates without difficulty BACK: Thoracic paraspinal tenderness T7 area, lower lumbar paraspinal tenderness, no lumbar midline tenderness, no deformities or step-offs. No CVA tenderness. NEUROLOGICAL: Cranial nerves grossly intact. Normal speech, normal gait. No saddle anesthesia. No foot drop PSYCH: Normal mood, normal affect. SKIN: Warm, Dry, normal turgor, no rashes or lesions noted. - INFECTION CONTROL TRAVEL OUTSIDE OF THE [place] IN LAST 30 DAYS: No Course - Re-evaluation Re-evalutation: 04/12/19 18:22 Presentation of a well appearing patient complaining of acute on chronic back pain. No rapid progression of symptoms, systemic symptoms including fevers, chills, weight loss, history of recent bacterial infection, bilateral symptoms, numbness, weakness, difficulty walking, urinary retention or bowel incontinence, personal history of cancer, immunosuppression, diabetes, known AAA, or history of IV drug use. Exam is without point tenderness over vertebral bodies, and patient has symmetric and intact lower extremity strength, and sensation Based on history and physical, I have a very low suspicion of a concerning etiology of pain including epidural compression syndrome, spinal infection, transverse myelitis, malignancy, abdominal aortic aneurysm, renal colic, acute lower extremity claudication, neurogenic claudication, ankylosing spondylitis, or other intra-abdominal process. Due to absence of concerning risk factors in history and physical as well as absence of rapidly progressive, severe, or bilateral symptoms, will defer imaging at this point. - Vital Signs Vital signs: Temp Pulse Resp BP Pulse Ox 98.4 F 101 H 17 187/102 H 97 04/12/19 17:56 04/12/19 17:56 04/12/19 17:56 04/12/19 17:56 04/12/19 17:56 Discharge - Discharge Clinical Impression: Low back pain Qualifiers: Chronicity: unspecified Back pain laterality: bilateral Sciatica presence: [facility] sciatica Qualified Code(s): M54.5 - Low back pain Condition: Stable Disposition: HOME, SELF-CARE Instructions: Ice Packs ([facility]), Low Back Pain ([facility]), Oral Narcotic Medication ([facility]) Additional Instructions: Return immediately for any new or worsening symptoms Followup with your primary care provider, call tomorrow to make a followup appointment Prescriptions: Lidocaine [Lidoderm 5% (700 mg) Transdermal Patch] 1 patch TP DAILY PRN #10 a dh..patch PRN Reason: Hydrocodone/Acetaminophen [Prentice 5-325 mg Tablet] 1 tab PO Q6 PRN #15 tablet PRN Reason: Forms: Return to Work Referrals: ROSA BAER FNP-C [Primary Care Provider] - Follow up as needed
== END 2019-04-12 18:23 | disposition home or self-care (01) ==
LOC: ER 17:54
DX: M54.5 Low back pain (principal); G89.29 Other chronic pain; X50.0XXA Overexertion from strenuous movement or load, initial encounter; I10 Essential (primary) hypertension
CPT/HCPCS: 99283

== ENCOUNTER 2019-12-09 21:09 | Emergency (ER) | payer MEDICARE, MEDICAID ==
[2019-12-09] MEDS ORDERED: DEXAMETHASONE SOD PHOS INJ 10 MG/1 ML VIAL IM ONE (22:16)
--- NOTE | 2019-12-09 23:18 | ER Document Report ---
ED Neck/Back Problem - General Chief Complaint: Back Pain Stated Complaint: BACK PAIN Time Seen by Provider: 12/09/19 21:34 Primary Care Provider: ROSA BAER FNP-C [NURSE PRACTITIONER] - Follow up as needed SIVAKUMAR ABURTO MD [ASSOCIATE] - Follow up as needed Mode of Arrival: Ambulatory Information source: Patient Notes: 59-year-old female presents to ED for c/o back pain. Patient reports she has chronic back pain. Patient rates pain 4/5. Patient reports she was being seen at a pain clinic but hasn't been able to get in recently due to covid. Patient reports she works at [employer] and pain has worsened over the last couple days as she has been lifting and if she moves the wrong way. Patient denies taking Tylenol or ibuprofen. Patient is alert oriented respirations regular nonlabored speaking in full sentences. She is able to ambulate with a steady gait. She does not complain of any signs or symptoms of cauda equina, she has no loss control of bowel bladder, no saddle anesthesia, no loss of control or sensation to the lower extremities. TRAVEL OUTSIDE OF THE [place] IN LAST 30 DAYS: No - HPI Patient complains to provider of: Upper back, Lower back Onset: Other - chronic Onset: Chronic Timing: Still present Quality of pain: Sharp Severity: Moderate Pain Level: 4 Context: Lifting, Turning Recent injury: No Associated symptoms: Like prior neck/back pain, Radiation to leg, Lower back pain, Upper back pain. denies: Chills, Constipation, Incontinence, Motor loss, Numbness/tingling, Radiation to arm, Radiation to chest, Sensory loss, Unable to urinate Similar symptoms previously: Yes Recently seen / treated by doctor: No - Related Data Allergies/Adverse Reactions: pentazocine HCl [From Talwin Compound] Allergy (Severe, Verified 12/14/18 14:24) AMS Tetanus Vaccines and Toxoid [Tetanus] Allergy (Severe, Verified 12/14/18 14:24) AMS Penicillins Allergy (Mild, Verified 12/14/18 14:24) Rash aspirin [Aspirin] Allergy (Unknown, Verified 12/14/18 14:24) Past Medical History - General Information source: Patient - Social History Smoking Status: Current Every Day Smoker Cigarette use (# per day): Yes Chew tobacco use (# tins/day): No Smoking Education Provided: Yes - 4 minutes Frequency of alcohol use: None Drug Abuse: None Lives with: Family Family History: Arthritis, CAD, DM, Hypertension, Other - No TIAs. denies: CVA Patient has homicidal ideation: No - Past Medical History Cardiac Medical History: Reports: Hx Hypercholesterolemia, Hx Hypertension Pulmonary Medical History: Reports: None EENT Medical History: Reports: None Neurological Medical History: Reports: Hx Migraine Endocrine Medical History: Reports: Hx Hypothyroidism - Has not taken medication in years and is not with concern for this any more Renal/ Medical History: Reports: Hx Ovarian Cysts Malignancy Medical History: Reports: None GI Medical History: Reports: None Musculoskeletal Medical History: Reports Hx Arthritis - HANDS, BACK Skin Medical History: Reports None Psychiatric Medical History: Reports: Hx Depression Traumatic Medical History: Reports: None Infectious Medical History: Reports: None Past Surgical History: Reports: Hx Section - 1, Hx Gastric Bypass Surgery - in 1999, Hx Genitourinary Surgery - gastric bypass, Hx Hysterectomy - Immunizations Hx Diphtheria, Pertussis, Tetanus Vaccination: No Review of Systems - Review of Systems Constitutional: No symptoms reported EENT: No symptoms reported Cardiovascular: No symptoms reported Respiratory: No symptoms reported Gastrointestinal: No symptoms reported Genitourinary: No symptoms reported Female Genitourinary: No symptoms reported Musculoskeletal: No symptoms reported Skin: No symptoms reported Hematologic/Lymphatic: No symptoms reported Neurological/Psychological: No symptoms reported -: Yes All other systems reviewed and negative Physical Exam - Vital signs Vitals: Temp Pulse Resp BP Pulse Ox 98.7 F 86 18 185/100 H 96 12/09/19 21:18 12/09/19 21:18 12/09/19 21:18 12/09/19 21:18 12/09/19 21:18 Interpretation: Normal - General General appearance: Appears well, Alert - HEENT Head: Normocephalic, Atraumatic Eyes: Normal Pupils: PERRL - Respiratory Respiratory status: No respiratory distress Chest status: Nontender Breath sounds: Normal Chest palpation: Normal - Cardiovascular Rhythm: Regular Heart sounds: Normal auscultation Murmur: No - Abdominal Inspection: Normal Distension: No distension Bowel sounds: Normal Tenderness: Nontender Organomegaly: No organomegaly - Back Back: Normal, Tender. No: Deformity/step-off, CVA tenderness, Vertebra tenderness, Scars, Scoliosis, Wounds, Other - Extremities General upper extremity: Normal inspection, Nontender, Normal color, Normal ROM, Normal temperature General lower extremity: Normal inspection, Nontender, Normal color, Normal ROM, Normal temperature, Normal weight bearing. No: Marilyn's sign - Neurological Neuro grossly intact: Yes Cognition: Normal Orientation: AAOx4 Sophie Coma Scale Eye Opening: Spontaneous [place] Coma Scale Verbal: Oriented [place] Coma Scale Motor: Obeys Commands [place] Coma Scale Total: 15 Speech: Normal Motor strength normal: LUE, RUE, LLE, RLE Sensory: Normal - Psychological Associated symptoms: Normal affect, Normal mood - Skin Skin Temperature: Warm Skin Moisture: Dry Skin Color: Normal Course - Re-evaluation Re-evalutation: 12/10/19 04:23 X-ray report discussed with patient. There is no acute findings on the x-ray. She did have chronic changes. Patient has no signs or symptoms of cauda equina, no loss control of bowel bladder, no saddle anesthesia, no loss control lower extremities. She had no loss of sensation to lower extremities. She is able to walk with a even steady gait. Patient was treated with IM steroids and a dispense pack of [place] and instructed to please get in with a new pain management if she was not able to return to the when she was going to before the pandemic ovarian infection. - Vital Signs Vital signs: Temp Pulse Resp BP Pulse Ox 97.6 F 77 18 184/100 H 95 12/10/19 01:38 12/10/19 01:38 12/09/19 21:18 12/10/19 01:38 12/10/19 01:38 - Laboratory Laboratory results interpreted by me: 12/10/19 00:06 Urine Blood SMALL H Urine Nitrite POSITIVE H Ur Leukocyte Esterase TRACE H - Diagnostic Test Radiology reviewed: Image reviewed, Reports reviewed Discharge - Discharge Clinical Impression: Upper back pain Back pain Qualifiers: Back pain location: low back pain Chronicity: chronic Back pain laterality: unspecified Sciatica presence: with sciatica Sciatica laterality: sciatica laterality unspecified Qualified Code(s): M54.40 - Lumbago with sciatica, unspecified side Condition: Stable Disposition: HOME, SELF-CARE Additional Instructions: LOW BACK PAIN: Three out of every four people will have an episode of disabling back pain during their lifetime. Most commonly the pain is due to straining of the muscles and ligaments in the low back. Usual treatment includes: (1) Rest on a firm surface. Avoid lying on your stomach. (2) Ice pack the painful area. After a few days, gentle heat may be used intermittently to relax the area, or ice packs can be continued. (3) Medication may be needed -- muscle relaxers and antiinflammatory medicines are commonly used. (4) As the back improves, exercises are prescribed to strengthen the back and abdominal muscles. Your doctor will advise you on the proper care for your back at each stage in your recovery. You may be better in a few days -- or healing may take several weeks. If new symptoms of a "herniated disc" (radiation of pain, numbness, or tingling down the back of the leg or weakness in the leg) occur, you should be re-examined. Further testing may be necessary. URINARY TRACT INFECTION: Your evaluation indicates that you have a urinary tract infection. This is due to germs growing in the bladder. This is a common problem. This infection usually responds quickly to antibiotics. Your antibiotic should be taken exactly as prescribed. Drink plenty of fluids -- three to four quarts a day. Occasionally, a bladder anesthetic will be prescribed to help stop the feeling of urgency until the antibiotic has a chance to clear the infection. This may cause your urine to be dark orange. Certain urine infections require a culture. If the doctor obtained a culture, the results will be back in two days. You should call to see if a change in treatment is needed. A repeat urinalysis after you finish treatment is often recommended. The physician will let you know if further testing is required. Call the doctor if you develop fever, chills, flank pain, inability to urinate, or blood in the urine. NITROFURANTOIN (MACRODANTIN, MACROBID): You have received a prescription for nitrofurantoin (Macrodantin). This antibiotic is used for urinary tract infections. Women who are or nursing should notify the physician before taking this medicine. If you have ever had a problem caused by this medication in the past, be sure the physician is aware of it. Common side effects of this medicine include nausea, vomiting, or decreased appetite. Notify your physician if these side effects become severe. Immediately stop this medicine and call the physician if you develop cough, shortness of breath, chest pain, weakness, jaundice (yellow color of the skin and whites of the eyes), or a skin rash. ORAL NARCOTIC MEDICATION: You have been given a norco dispense pack for pain control. This medication is a narcotic. It's best taken with food, as nausea can result if taken on an empty stomach. Don't operate machinery or drive within six hours of taking this medication. Do not combine this medicine with alcohol, or with any medication which can cause sedation (such as cold tablets or sleeping pills) unless you get permission from the physician. Narcotics tend to cause constipation. If possible, drink plenty of fluids and eat a diet high in fiber and fruits. Please be aware that prescription narcotics also have the potential for abuse. People become addicted to these medications because of the general sense of wellbeing that they induce. This feeling along with a significant reduction in tension, anxiety, and aggression provides a stimulating seductive quality to these drugs. Once your pain is under control, we encourage you to discard your unused narcotics. ICE PACKS: Apply ice packs frequently against the painful area. Many different schedules are recommended, such as "20 minutes on, 20 minutes off" or "one hour ice, two hours rest." If you need to work, you may need to go longer between ice treatments. You should plan to have the area ice packed AT LEAST one fourth of the time. The ice should be applied over the wrap, tape, or splint, or over a layer of cloth -- not directly against the skin. Some ice bags have a built-in cloth and can be put directly on the skin. WARM PACKS: After approximately two days, apply gentle heat (such as a heating pad or hot water bottle) for about 20 to 30 minutes about every two hours -- at least four times daily. Warmth and elevation will help you make a more rapid recovery, and will ease the pain considerably. Do not use HOT heat, and never apply heat for longer than 30 minutes. The continuous heat can invisibly damage skin and muscles -- even when no burn is seen on the surface. Damaged muscles can make you MORE sore. Exercise Program for the Shoulder Since the shoulder moves in so many directions, the joint attachment is weak. Muscles provide most of the stability to the shoulder. You must exercise your shoulder to prevent painful instability or stiffening. PASSIVE - These may be begun within a few days of the injury. While standing, lean forward, allowing the arm to hang down towards the floor. Move the arm in small circles while slowly twisting your chest towards and away from the hanging arm. Do this for one minute. ACTIVE - These may be performed when the doctor gives permission. Begin with the arms at the sides. Raise the arms forward (shoulder's width apart) until they reach shoulder level. Then slowly swing both arms back until they are aiming straight out away from each other. Then bring them forward again, and finally, lower them to your sides. Repeat 20 to 30 times. As you improve, put weights in your hands for the exercise. Start with one pound, and work up to 10 pounds. Never use more than is comfortable. Athletes may work up to 30 pounds. Stretching Exercises for the Back The physician has recommended that you begin stretching exercises for your back. These are often used even while the back is painful. However, you should notify the physician if the activities seem to increase your pain. PELVIC TILT: Lie flat on your back with knees bent. Tighten your stomach and buttock muscles so it flattens your lower back against the floor. Hold 10 seconds. Repeat 10 times, twice daily. KNEE RAISE: Lying on the back with knees bent, raise one knee to your chest, then the other. Hold both knees against the chest 10 seconds, then lower one knee at a time. Repeat 10 times, twice daily. PARTIAL TRUNK RAISE: Lie face down, arms at your sides. Keeping your waist on the floor, use your arms raise your chest up. Support yourself on your elbows for 30 seconds. Repeat twice daily, increasing the time to two minutes as you recover. FOLLOW-UP CARE: If you have been referred to a physician for follow-up care, call the physicians office for an appointment as you were instructed or within the next two days. If you experience worsening or a significant change in your symptoms, notify the physician immediately or return to the Emergency Department at any time for re-evaluation. Prescriptions: Nitrofurantoin Monohyd/M-Cryst [Macrobid 100 mg Capsule] 100 mg PO BID #20 cap Forms: Elevated Blood Pressure, Smoking Cessation Education, Return to Work Referrals: ROSA BAER FNP-C [NURSE PRACTITIONER] - Follow up as needed SIVAKUMAR ABURTO MD [ASSOCIATE] - Follow up as needed
--- NOTE | 2019-12-09 23:50 | RADIOLOGY REPORT (SQ) ---
EXAM DESCRIPTION: XR LUMBAR SPINE ANTEROPOSTERIOR, LATERAL, AND OBLIQUES COMPLETED DATE/TME: 12/09/2019 22:16 CLINICAL HISTORY: 59 years, Female, lower back pain COMPARISON: None. NUMBER OF VIEWS: 5 TECHNIQUE: 5 views lumbar spine LIMITATIONS: None. FINDINGS: Osteopenia. Vertebral body height and alignment is preserved. Minor facet arthropathy at the L5-S1 level. Nonspecific calcifications seen in the upper abdomen on the lateral view only. IMPRESSION: Osteopenia. Minor degenerative change L5-S1 copyright 2010 [employer]- All Rights Reserved
[2019-12-10 00:29] LABS: APPEARANCE,URINE CLEAR; BILIRUBIN,URINE NEGATIVE (NEGATIVE); COLOR,URINE YELLOW; GLUCOSE, URINE NEGATIVE (NEGATIVE); KETONES,URINE NEGATIVE (NEGATIVE); LEUKOCYTE ESTERASE,URINE TRACE (NEGATIVE); NITRITE,URINE POSITIVE (NEGATIVE); PROTEIN,URINE NEGATIVE (NEGATIVE); URINE SPECIFIC GRAVITY 1.009; UROBILINOGEN,URINE NEGATIVE mg/dL (<2.0)
[2019-12-10] MEDS ORDERED: HYDROCODONE/ACETAMINOPHEN 5-325 MG (6 TAB/ER DISP) PO PRN (01:15)
[2019-12-10] MEDS ORDERED: NITROFURANTOIN MONOHYD/M-CRYST 100 MG CAPSULE PO ONE (01:24)
[2019-12-10 01:40] VITALS: BP 184/100
== END 2019-12-10 01:41 | disposition home or self-care (01) ==
LOC: ER 21:09
DX: M47.817 Spondylosis without myelopathy or radiculopathy, lumbosacral region (principal); M54.9 Dorsalgia, unspecified; M54.40 Lumbago with sciatica, unspecified side; G89.29 Other chronic pain; M85.88 Other specified disorders of bone density and structure, other site; F17.210 Nicotine dependence, cigarettes, uncomplicated; I10 Essential (primary) hypertension; Z98.84 Bariatric surgery status; Z88.6 Allergy status to analgesic agent; Z88.5 Allergy status to narcotic agent; Z88.7 Allergy status to serum and vaccine; Z88.0 Allergy status to penicillin; Z88.8 Allergy status to other drugs, medicaments and biological substances
CPT/HCPCS: 99283; 96372; 81001; 72110; J1100; A9270 ×2; J8499

== ENCOUNTER 2020-03-05 14:48 | Emergency (ER) | payer MEDICARE, MEDICAID ==
--- NOTE | 2020-03-05 15:02 | ER Document Report ---
ED Medical Screen (RME) - General Chief Complaint: Cough Stated Complaint: COUGH/CONGESTION Time Seen by Provider: 03/05/20 14:56 Mode of Arrival: Ambulatory Information source: Patient Notes: HPI; 60-year-old female presents to the emergency room complaining of a worsening cough for the past week. Denies any fevers, no recent travel. No COVID-19 exposure. Does work at [employer]. States she had a negative cover test on Sunday. Eating and drinking normally. No known ill contacts. Using [id number]-zva-[id number] medications without relief. PE: Alert and oriented x3. Mild distress noted. Lungs with scattered rhonchi no wheezes no rales. Heart: Regular rate rhythm without murmurs, rubs, gallops. I have greeted and performed a rapid initial assessment of this patient. A comprehensive ED assessment and evaluation of the patient, analysis of test results and completion of the medical decision making process will be conducted by additional ED providers. I have specifically instructed the patient or family members with the patient to immediately return to any nursing staff should anything change in the patient's condition or with their chief complaint. TRAVEL OUTSIDE OF THE [place] IN LAST 30 DAYS: No - Related Data Allergies/Adverse Reactions: pentazocine HCl [From Talwin Compound] Allergy (Severe, Verified 12/14/18 14:24) AMS Tetanus Vaccines and Toxoid [Tetanus] Allergy (Severe, Verified 12/14/18 14:24) AMS Penicillins Allergy (Mild, Verified 12/14/18 14:24) Rash aspirin [Aspirin] Allergy (Unknown, Verified 12/14/18 14:24) Past Medical History - Past Medical History Cardiac Medical History: Reports: Hx Hypercholesterolemia, Hx Hypertension Denies: Hx Heart Attack Pulmonary Medical History: Denies: Hx Asthma, Hx Bronchitis, Hx COPD, Hx Pneumonia Neurological Medical History: Reports: Hx Migraine. Denies: Hx Seizures Endocrine Medical History: Reports: Hx Hypothyroidism - Has not taken medication in years and is not with concern for this any more Renal/ Medical History: Reports: Hx Ovarian Cysts. Denies: Hx Peritoneal Dialysis Musculoskeltal Medical History: Reports Hx Arthritis - HANDS, BACK Psychiatric Medical History: Reports: Hx Depression Past Surgical History: Reports: Hx Section - 1, Hx Gastric Bypass Surgery - in 1999, Hx Genitourinary Surgery - gastric bypass, Hx Hysterectomy - Immunizations Hx Diphtheria, Pertussis, Tetanus Vaccination: No Physical Exam - Vital signs Vitals: Temp Pulse Resp BP Pulse Ox 98.6 F 90 18 189/107 H 99 03/05/20 14:55 03/05/20 14:55 03/05/20 14:55 03/05/20 14:55 03/05/20 14:55 Course - Vital Signs Vital signs: Temp Pulse Resp BP Pulse Ox 98.6 F 90 18 189/107 H 99 03/05/20 14:55 03/05/20 14:55 03/05/20 14:55 03/05/20 14:55 03/05/20 14:55
--- NOTE | 2020-03-05 16:00 | RADIOLOGY REPORT (SQ) ---
EXAM DESCRIPTION: CHEST SINGLE VIEW IMAGES COMPLETED DATE/TIME: 03/05/2020 3:43 pm REASON FOR STUDY: cough COMPARISON: PA and lateral views of the chest from 09/25/2018. EXAM PARAMETERS: NUMBER OF VIEWS: One view. TECHNIQUE: An AP view of the chest was obtained. RADIATION DOSE: NA LIMITATIONS: None. FINDINGS: LUNGS AND PLEURA: No consolidation, pleural effusion or pneumothorax. MEDIASTINUM AND HILAR STRUCTURES: No mediastinal or hilar contour abnormality. HEART AND VASCULAR STRUCTURES: The cardiac silhouette and pulmonary vasculature are within normal chou its. BONES: No acute findings. HARDWARE: None in the chest. OTHER: No other finding. IMPRESSION: No acute cardiopulmonary process. TECHNICAL DOCUMENTATION: JOB ID: [id number] 2010 [employer].- All Rights Reserved Reading location - IP/workstation name: [email or web address]
[2020-03-05] MEDS ORDERED: ONDANSETRON 4 MG TAB.RAPDIS PO ONE (18:55)
[2020-03-05] MEDS ORDERED: BENZONATATE 100 MG CAPSULE PO ONE (18:55)
[2020-03-05 18:57] LABS: ABSOLUTE BASOPHILS # (AUTO) 0.1 10^3/uL (0.0-0.2); ABSOLUTE EOSINOPHILS # (AUTO) 0.2 10^3/uL (0.0-0.6); ABSOLUTE LYMPHOCYTES (AUTO) 2.2 10^3/uL (0.5-4.7); ABSOLUTE MONOCYTES (AUTO) 0.4 10^3/uL (0.1-1.4); ABSOLUTE NEUT (AUTO) 3.7 10^3/uL (1.7-8.2); BASOPHILS % (AUTO) 1.1 % (0-2); EOSINOPHILS % (AUTO) 2.6 % (0-6); HEMATOCRIT 33.3 % (36.0-47.0); HEMOGLOBIN 10.3 g/dL (12.0-15.5); MEAN CORPUSCULAR HEMOGLOBIN 22.5 pg (27.0-33.4); MEAN CORPUSCULAR HGB CONC 30.9 g/dL (32.0-36.0); MEAN CORPUSCULAR VOLUME 73 fl (80-97); MONOCYTES % (AUTO) 6.7 % (3-13); PLATELET COUNT 351 10^3/uL (150-450); RED BLOOD COUNT 4.58 10^6/uL (3.72-5.28); RED CELL DISTRIBUTION WIDTH 17.5 % (11.5-14.0); SEGMENTED NEUTROPHILS % (AUTO) 55.6 % (42-78); TOTAL CELLS COUNTED % (AUTO) 100 %; WHITE BLOOD COUNT 6.6 10^3/uL (4.0-10.5)
[2020-03-05 19:13] LABS: ALBUMIN 4.3 g/dL (3.5-5.0); ALKALINE PHOSPHATASE 92 U/L (38-126); ANION GAP 7 (5-19); ASPARTATE AMINO TRANSFERASE 24 U/L (14-36); BILIRUBIN,DIRECT 0.2 mg/dL (0.0-0.4); BILIRUBIN,TOTAL 0.4 mg/dL (0.2-1.3); BLOOD UREA NITROGEN 18 mg/dL (7-20); CALCIUM 9.5 mg/dL (8.4-10.2); CARBON DIOXIDE 25 mmol/L (22-30); CHLORIDE 107 mmol/L (98-107); GLUCOSE 89 mg/dL (75-110); POTASSIUM 4.7 mmol/L (3.6-5.0); TOTAL PROTEIN 6.8 g/dL (6.3-8.2)
--- NOTE | 2020-03-05 19:29 | ER Document Report ---
ED Respiratory Problem - General Chief Complaint: Cough Stated Complaint: COUGH/CONGESTION Time Seen by Provider: 03/05/20 14:56 Mode of Arrival: Ambulatory Notes: Patient is a 60-year-old female who presents emergency department with a chief complaint of a cough that she has had for about a week. Patient states that she tested for COVID-19 on an outpatient basis and this was negative. Patient states that she cannot get rid of the cough. She has been taking [id number] medication to help her with her cough, but continues to have the symptoms. Patient does smoke, but has not smoked since she started to have her symptoms. TRAVEL OUTSIDE OF THE [place] IN LAST 30 DAYS: No - Related Data Allergies/Adverse Reactions: pentazocine HCl [From Talwin Compound] Allergy (Severe, Verified 03/05/20 18:55) AMS Tetanus Vaccines and Toxoid [Tetanus] Allergy (Severe, Verified 03/05/20 18:55) AMS Penicillins Allergy (Mild, Verified 03/05/20 18:55) Rash aspirin [Aspirin] Allergy (Unknown, Verified 03/05/20 18:55) Past Medical History - General Information source: Patient - Social History Smoking Status: Current Every Day Smoker Chew tobacco use (# tins/day): No Frequency of alcohol use: Occasional Drug Abuse: None Family History: Arthritis, CAD, DM, Hypertension, Other - No TIAs. denies: CVA - Past Medical History Cardiac Medical History: Reports: Hx Hypercholesterolemia, Hx Hypertension Denies: Hx Heart Attack Pulmonary Medical History: Denies: Hx Asthma, Hx Bronchitis, Hx COPD, Hx Pneumonia Neurological Medical History: Reports: Hx Migraine. Denies: Hx Seizures Endocrine Medical History: Reports: Hx Hypothyroidism - Has not taken medication in years and is not with concern for this any more Renal/ Medical History: Reports: Hx Ovarian Cysts. Denies: Hx Peritoneal Dialysis Musculoskeletal Medical History: Reports Hx Arthritis - HANDS, BACK Psychiatric Medical History: Reports: Hx Depression Past Surgical History: Reports: Hx Section - 1, Hx Gastric Bypass Surgery - in 1999, Hx Genitourinary Surgery - gastric bypass, Hx Hysterectomy - Immunizations Hx Diphtheria, Pertussis, Tetanus Vaccination: No Review of Systems - Review of Systems Notes: REVIEW OF SYSTEMS: CONSTITUTIONAL : Denies recent illness. Denies recent unintentional weight loss. Denies fever, chills, or sweats. EENT: Denies eye, ear, throat, or mouth pain, discharge, or symptoms. Denies nasal or sinus congestion. CARDIOVASCULAR: Denies chest pain. RESPIRATORY: See HPI. GASTROINTESTINAL: Denies nausea, vomiting, and diarrhea. Denies abdominal pain. Denies constipation. GENITOURINARY: Denies difficulty urinating, burning, blood in urine, urgency or frequency. MUSCULOSKELETAL: Denies neck and back pain. Denies joint pain or swelling. SKIN: Denies rash, itchiness, or lesions HEMATOLOGIC : Denies easy bruising or bleeding. LYMPHATIC: Denies swollen, painful, enlarged glands. NEUROLOGICAL: Denies no numbness or tingling denies weakness. Denies headache. Denies altered mental status. Denies alteration in speech. PSYCHIATRIC: Denies stress, anxiety, alteration in sleep patterns, or depression. All other systems reviewed and negative. Physical Exam - Vital signs Vitals: Temp Pulse Resp BP Pulse Ox 98.6 F 90 18 189/107 H 99 03/05/20 14:55 03/05/20 14:55 03/05/20 14:55 03/05/20 14:55 03/05/20 14:55 - Notes Notes: PHYSICAL EXAMINATION: GENERAL: Appears well, healthy, well-nourished, no acute distress. HEAD: Normocephalic, atraumatic. EYES: PERRL, conjunctiva normal, all extraocular movements intact, sclera nonicteric ENT: Moist mucous membranes. NECK: Supple, no noticeable swelling, redness, rash. Normal range of motion. LUNGS: Slight expiratory wheezes noted. Harsh cough noted. CARDIOVASCULAR: S1-S2, regular rate, regular rhythm. Radial pulses 2+, normal. ABDOMEN: Normoactive bowel sounds. Soft, nontender, no guarding, no rebound tenderness, and no masses palpated. EXTREMITIES: Normal strength and range of motion, no pitting or edema. No cyanosis. NEUROLOGICAL: Moves all extremities upon command. Strength 5/5 in all extremities. PSYCH: Normal mood, normal affect. SKIN: Warm, dry. No rash, lesions, ulcerations noted. Normal skin turgor. Course - Re-evaluation Re-evalutation: 03/06/20 Patient presents with a clinical history and exam most consistent with an acute viral bronchitis. Patient is overall well in appearance without tachypnea, hypoxemia, tachycardia, or difficulty with ambulation. Breath sounds are clear bilaterally. No fever. Patient does have additional signs of upper respiratory infection including nasal congestion, sore throat, and sinus pressure. Chest x-ray is normal. Labs are unremarkable. Will treat with bronchodilators, prednisone, and Tessalon Perles. At this time will discharge with return pre cautions and follow-up recommendations. Verbal discharge instructions given a the bedside and opportunity for questions given. Medication warnings reviewed. Patient is in agreement with this plan and has verbalized understanding of return precautions and the need for primary care follow-up in the next 24-72 hours. - Vital Signs Vital signs: Temp Pulse Resp BP Pulse Ox 97.5 F 79 16 173/108 H 99 03/05/20 19:34 03/05/20 19:34 03/05/20 19:34 03/05/20 19:34 03/05/20 19:34 - Laboratory Result Diagrams: 03/05/20 18:14 03/05/20 18:14 Laboratory results interpreted by me: 03/05/20 03/05/20 18:14 18:14 Hgb 10.3 L Hct 33.3 L MCV 73 L MCH 22.5 L MCHC 30.9 L RDW 17.5 H Est GFR (MDRD) Non-Af 54 L Discharge - Discharge Clinical Impression: Bronchitis, Cough Condition: Stable Disposition: HOME, SELF-CARE Additional Instructions: Bronchitis You have acute bronchitis. This disease is an infection or inflammation of the air passageways in your lungs. Symptoms usually include cough, low grade fever, shortness of breath, and wheezing. The cough usually persists for a couple of weeks. Most cases of bronchitis get better without antibiotics. We prescribe antibiotics when we believe bacteria are damaging your airways, or if there's high risk the bronchitis will worsen into pneumonia. Increase your fluid intake. A cool mist humidifier may make your lungs more comfortable. An expectorant (cough medicine that loosens phlegm) can help. If you smoke, STOP!!! Recovery from bronchitis can be somewhat slow, but you should see improvement within a day or two. Repeated episodes of bronchitis may result in lung damage -- for example, chronic bronchitis, recurrent pneumonias, or emphysema. Call the doctor if you develop increasing fever, shortness of breath, chest pain, bloody sputum, or otherwise worsen. If you have not improved at all after several days, contact the physician. Prescriptions: Prednisone [Deltasone 20 mg Tablet] 3 tab PO DAILY 5 Days #15 tablet Albuterol Sulfate [Proair HFA Inhalation Aerosol 8.5 gm MDI] 2 puff IH Q4H PRN #1 mdi PRN Reason: Inhaler, Assist Devices [Space Chamber Plus] 1 each MC ASDIR PRN #1 spacer PRN Reason: Benzonatate [Tessalon Perles 100 mg Capsule] 100 mg PO Q8HP PRN #40 capsule PRN Reason: Acetaminophen with Codeine [Tylenol with Codeine 120 mg-12 mg/5 ml] 5 ml PO Q4HP PRN #120 ml PRN Reason:
[2020-03-05 19:35] VITALS: BP 173/108
== END 2020-03-05 19:36 | disposition home or self-care (01) ==
LOC: ER 14:48
DX: J40 Bronchitis, not specified as acute or chronic (principal); R05 Cough; R06.2 Wheezing; R09.81 Nasal congestion; J02.9 Acute pharyngitis, unspecified; F17.200 Nicotine dependence, unspecified, uncomplicated; I10 Essential (primary) hypertension; Z98.84 Bariatric surgery status; Z88.6 Allergy status to analgesic agent; Z88.5 Allergy status to narcotic agent; Z88.7 Allergy status to serum and vaccine; Z88.0 Allergy status to penicillin; Z88.8 Allergy status to other drugs, medicaments and biological substances
CPT/HCPCS: 99284; 36415; 85025; 80053; 71045; A9270

== ENCOUNTER 2020-04-10 18:14 | Inpatient (IN) | payer MEDICARE, MEDICAID ==
--- NOTE | 2020-04-10 18:30 | ER Document Report ---
ED Medical Screen (RME) - General Chief Complaint: Syncope Stated Complaint: LIGHT HEADNESS Time Seen by Provider: 04/10/20 18:27 Mode of Arrival: Wheelchair Information source: Patient Notes: 60-year-old female presented to ED for syncopal episodes x3 today. She is very lightheaded in the emergency room. She does have low blood pressure at this time. She states she has not had this before. Work on medical history do you have she states she has a history of high blood pressure pneumonia high cholesterol anemia she is very pale with pale mucous membranes. Have spoken to the charge nurse and she will sign of him to my patient. I have greeted and performed a rapid initial assessment of this patient. A comprehensive ED assessment and evaluation of the patient, analysis of test results and completion of medical decision making process will be conducted by an additional ED providers. TRAVEL OUTSIDE OF THE [place] IN LAST 30 DAYS: No - Related Data Allergies/Adverse Reactions: pentazocine HCl [From Talwin Compound] Allergy (Severe, Verified 04/10/20 18:20) AMS Tetanus Vaccines and Toxoid [Tetanus] Allergy (Severe, Verified 04/10/20 18:20) AMS Penicillins Allergy (Mild, Verified 04/10/20 18:20) Rash aspirin [Aspirin] Allergy (Unknown, Verified 04/10/20 18:20) Past Medical History - Past Medical History Cardiac Medical History: Reports: Hx Hypercholesterolemia, Hx Hypertension Denies: Hx Heart Attack Pulmonary Medical History: Denies: Hx Asthma, Hx Bronchitis, Hx COPD, Hx Pneumonia Neurological Medical History: Reports: Hx Migraine. Denies: Hx Seizures Endocrine Medical History: Reports: Hx Hypothyroidism - Has not taken medication in years and is not with concern for this any more Renal/ Medical History: Reports: Hx Ovarian Cysts. Denies: Hx Peritoneal Dialysis Musculoskeltal Medical History: Reports Hx Arthritis - HANDS, BACK Psychiatric Medical History: Reports: Hx Depression Past Surgical History: Reports: Hx Section - 1, Hx Gastric Bypass Surgery - in 1999, Hx Genitourinary Surgery - gastric bypass, Hx Hysterectomy - Immunizations Hx Diphtheria, Pertussis, Tetanus Vaccination: No Physical Exam - Vital signs Vitals: Temp Pulse Resp BP Pulse Ox 98.4 F 99 16 90/59 L 99 04/10/20 18:19 04/10/20 18:19 04/10/20 18:19 04/10/20 18:19 04/10/20 18:19 Course - Vital Signs Vital signs: Temp Pulse Resp BP Pulse Ox 98.4 F 99 16 90/59 L 99 04/10/20 18:19 04/10/20 18:19 04/10/20 18:19 04/10/20 18:19 04/10/20 18:19
[2020-04-10 19:05] LABS: ABSOLUTE BASOPHILS # (AUTO) 0.1 10^3/uL (0.0-0.2); ABSOLUTE LYMPHOCYTES (AUTO) 2.3 10^3/uL (0.5-4.7); ABSOLUTE MONOCYTES (AUTO) 0.7 10^3/uL (0.1-1.4); BASOPHILS % (AUTO) 0.6 % (0-2); EOSINOPHILS % (AUTO) 0.3 % (0-6); HEMATOCRIT 27.3 % (36.0-47.0); HEMOGLOBIN 8.7 g/dL (12.0-15.5); LYMPHOCYTES % (AUTO) 22.8 % (13-45); MEAN CORPUSCULAR HEMOGLOBIN 23.2 pg (27.0-33.4); MEAN CORPUSCULAR HGB CONC 31.7 g/dL (32.0-36.0); MEAN CORPUSCULAR VOLUME 73 fl (80-97); MONOCYTES % (AUTO) 6.7 % (3-13); PLATELET COUNT 283 10^3/uL (150-450); RED BLOOD COUNT 3.73 10^6/uL (3.72-5.28); SEGMENTED NEUTROPHILS % (AUTO) 69.6 % (42-78); TOTAL CELLS COUNTED % (AUTO) 100 %; WHITE BLOOD COUNT 10.1 10^3/uL (4.0-10.5)
[2020-04-10 19:22] LABS: ALBUMIN 4.2 g/dL (3.5-5.0); ALKALINE PHOSPHATASE 84 U/L (38-126); ANION GAP 14 (5-19); ASPARTATE AMINO TRANSFERASE 21 U/L (14-36); BILIRUBIN,DIRECT 0.3 mg/dL (0.0-0.4); BILIRUBIN,TOTAL 0.3 mg/dL (0.2-1.3); BLOOD UREA NITROGEN 61 mg/dL (7-20); CALCIUM 9.6 mg/dL (8.4-10.2); CARBON DIOXIDE 20 mmol/L (22-30); CHLORIDE 101 mmol/L (98-107); CREATINE KINASE 69 U/L (30-135); GLUCOSE 101 mg/dL (75-110); POTASSIUM 4.9 mmol/L (3.6-5.0); TOTAL PROTEIN 6.8 g/dL (6.3-8.2)
[2020-04-10 19:32] LABS: CREATINE KINASE MB 0.92 ng/mL (<4.55)
[2020-04-10 19:33] LABS: TROPONIN I < 0.012 ng/mL
[2020-04-10 20:42] LABS: APPEARANCE,URINE CLEAR; BILIRUBIN,URINE NEGATIVE (NEGATIVE); COLOR,URINE STRAW; GLUCOSE, URINE NEGATIVE (NEGATIVE); KETONES,URINE NEGATIVE (NEGATIVE); LEUKOCYTE ESTERASE,URINE NEGATIVE (NEGATIVE); NITRITE,URINE NEGATIVE (NEGATIVE); PROTEIN,URINE NEGATIVE (NEGATIVE); URINE SPECIFIC GRAVITY 1.011; UROBILINOGEN,URINE NEGATIVE mg/dL (<2.0)
[2020-04-10] MEDS ORDERED: FAMOTIDINE INJ/PF 20 MG/2 ML SDV IV ONE (20:45)
[2020-04-10] MEDS ORDERED: PANTOPRAZOLE SODIUM 40 MG VIAL IV ONE (20:45)
[2020-04-10] MEDS ORDERED: NORMAL SALINE 250 ML IV PRN ×2 (20:46)
[2020-04-10] MEDS: NORMAL SALINE 1000 ML 1,000 ML IV PRN ×2 (20:49→21:30)
--- NOTE | 2020-04-10 21:10 | ER Document Report ---
ED Syncope and Near Syncope - General Chief Complaint: Syncope Stated Complaint: LIGHT HEADNESS Time Seen by Provider: 04/10/20 18:27 Mode of Arrival: Wheelchair Information source: Patient Notes: ED Medical Screen (Cyril rodriguez) - General Chief Complaint: Syncope Stated Complaint: LIGHT HEADNESS Time Seen by Provider: 04/10/20 18:27 Mode of Arrival: Wheelchair Information source: Patient Notes: 60-year-old female presented to ED for syncopal episodes x3 today. She is very lightheaded in the emergency room. She does have low blood pressure at this time. She states she has not had this before. Work on medical history do you have she states she has a history of high blood pressure pneumonia high cholesterol anemia she is very pale with pale mucous membranes. Have spoken to the charge nurse and she will sign of him to my patient. MY NOTES 60-year-old female who awoke this morning feeling very tired and yet took for her grandchildren and awoke her son. Patient passed out several times a day because she is so weak and tired. She is also very pale and has had no appetite and has eaten nothing today. Patient reports she been having green seaweed-like bowel movements daily and has been feeling tired for several years. For the past 5 years she has been seeing the [facility] special diet cook Dr. Vera on a yearly basis. Patient was unable to see him this year because of the COVID-19 virus epidemic. She has been receiving iron infusions x1 year. She reports her anemia began in 2005. She also works at [employer] and if she works 3 days in a row she feels severely tired. Her skin is pale her lips are pale and her hand fissures are pale and her eyelid mucous membranes are pale. She denies any abdominal pain TRAVEL OUTSIDE OF THE [place] IN LAST 30 DAYS: No - HPI Patient complains to provider of: Fainting Episode witnessed (by whom): Yes - Related Data Allergies/Adverse Reactions: pentazocine HCl [From Talwin Compound] Allergy (Severe, Verified 04/10/20 18:20) AMS Tetanus Vaccines and Toxoid [Tetanus] Allergy (Severe, Verified 04/10/20 18:20) AMS Penicillins Allergy (Mild, Verified 04/10/20 18:20) Rash aspirin [Aspirin] Allergy (Unknown, Verified 04/10/20 18:20) Past Medical History - General Information source: Patient - Social History Smoking Status: Current Every Day Smoker Cigarette use (# per day): Yes Chew tobacco use (# tins/day): No Smoking Education Provided: Yes Frequency of alcohol use: None Drug Abuse: None Lives with: Family Family History: Arthritis, CAD, DM, Hypertension, Other - No TIAs. denies: CVA Patient has suicidal ideation: No Patient has homicidal ideation: No - Past Medical History Cardiac Medical History: Reports: Hx Hypercholesterolemia, Hx Hypertension Denies: Hx Heart Attack Pulmonary Medical History: Denies: Hx Asthma, Hx Bronchitis, Hx COPD, Hx Pneumonia Neurological Medical History: Reports: Hx Migraine. Denies: Hx Seizures Endocrine Medical History: Reports: Hx Hypothyroidism - Has not taken medication in years and is not with concern for this any more Renal/ Medical History: Reports: Hx Ovarian Cysts. Denies: Hx Peritoneal Dialysis Musculoskeletal Medical History: Reports Hx Arthritis - HANDS, BACK Psychiatric Medical History: Reports: Hx Depression Past Surgical History: Reports: Hx Section - 1, Hx Gastric Bypass Surgery - in 1999, Hx Genitourinary Surgery - gastric bypass, Hx Hysterectomy - Immunizations Hx Diphtheria, Pertussis, Tetanus Vaccination: No Review of Systems - Review of Systems Constitutional: See HPI, Malaise, Weakness EENT: No symptoms reported Cardiovascular: No symptoms reported Respiratory: No symptoms reported Gastrointestinal: See HPI, Black stools Genitourinary: No symptoms reported Female Genitourinary: No symptoms reported Musculoskeletal: No symptoms reported Skin: No symptoms reported Hematologic/Lymphatic: No symptoms reported Neurological/Psychological: No symptoms reported, See HPI, Weakness, Lost consciousness - Today -: Yes All other systems reviewed and negative Physical Exam - Vital signs Vitals: Temp Pulse Resp BP Pulse Ox 98.4 F 99 16 90/59 L 99 04/10/20 18:19 04/10/20 18:19 04/10/20 18:19 04/10/20 18:19 04/10/20 18:19 Interpretation: Hypotensive, Tachycardic - General General appearance: Appears well, Alert - HEENT Head: Normocephalic, Atraumatic Eyes: Normal Pupils: PERRL - Respiratory Respiratory status: No respiratory distress Chest status: Nontender Breath sounds: Normal Chest palpation: Normal - Cardiovascular Rhythm: Regular Heart sounds: Normal auscultation Murmur: No - Abdominal Inspection: Normal Distension: No distension Bowel sounds: Normal Tenderness: Nontender Organomegaly: No organomegaly - Rectal Tenderness: No Stool: Heme positive, Other - per RN hemorrhoids - Genitourinary External exam: Normal - with - Back Back: Normal, Nontender - Extremities General upper extremity: Normal inspection, Nontender, Normal color, Normal ROM, Normal temperature General lower extremity: Normal inspection, Nontender, Normal color, Normal ROM, Normal temperature, Normal weight bearing. No: Marilyn's sign - Neurological Neuro grossly intact: Yes Cognition: Normal Orientation: AAOx4 Sophie Coma Scale Eye Opening: Spontaneous [place] Coma Scale Verbal: Oriented Sophie Coma Scale Motor: Obeys Commands Sophie Coma Scale Total: 15 Speech: Normal Motor strength normal: LUE, RUE, LLE, RLE Sensory: Normal - Psychological Associated symptoms: Normal affect, Normal mood - Skin Skin Temperature: Warm Skin Moisture: Dry Skin Color: Normal Course - Vital Signs Vital signs: Temp Pulse Resp BP Pulse Ox 98.1 F 72 16 120/69 100 04/10/20 23:59 04/10/20 23:59 04/10/20 23:59 04/10/20 23:59 04/10/20 23:59 - Laboratory Result Diagrams: 04/10/20 18:38 04/10/20 18:38 Laboratory results interpreted by me: 04/10/20 04/10/20 04/10/20 18:38 18:38 18:38 Hgb 8.7 L Hct 27.3 L MCV 73 L MCH 23.2 L MCHC 31.7 L RDW 18.0 H Sodium 134.6 L Carbon Dioxide 20 L BUN 61 H Est GFR (MDRD) Non-Af 50 L Crossmatch See Detail - Diagnostic Test Radiology reviewed: Reports reviewed - fecal impaction /stool no sbo luis hydro per radiology Critical Care Note - Critical Care Note Comments: I spoke about this case with the hospitalist Dr.Abel Flores. He advised he will see this patient in the ER. He did see this patient in room and will arrange for admission for her. Discharge - Discharge Clinical Impression: GI bleeding Qualifiers: GI bleed type/associated pathology: unspecified gastrointestinal hemorrhage type Qualified Code(s): K92.2 - Gastrointestinal hemorrhage, unspecified Anemia Qualifiers: Anemia type: unspecified type Qualified Code(s): D64.9 - Anemia, unspecified Condition: Stable Disposition: ADMITTED INPATIENT
[2020-04-10] MEDS ORDERED: MORPHINE SULFATE 10 MG/ML INJ IV ONE (21:13)
[2020-04-10] MEDS ORDERED: PANTOPRAZOLE SODIUM 40 MG VIAL IV SCH (22:15)
--- NOTE | 2020-04-10 22:18 | PDOC H&P ---
History of Present Illness Admission Date/PCP: HOLLI THOMAS MD Patient complains of: Lightheadedness, generalized weakness History of Present Illness: FABI KAUR is a 60 year old female with a history of hypertension, hyperlipidemia, chronic anemia since 2005 likely from duodenal ulcer and chronic gastritis presents today to ER after having 3 episodes of lightheadedness since waking up this morning. She reports feeling very tired when waking up and was lightheaded when trying to help her grandchildren. The lightheadedness was worse when she tried to stood up and she had 3 episodes of fainting since this morning which she describes as " I almost passed out" but denies total loss of consciousness, fall, head injury, nausea, vomiting, hematemesis or hematochezia. She states that she has been having greenish stool for the past few weeks. She takes meloxicam for joint and gum pain. She says she had an appointment to see her GI doctor but her schedule was canceled because of Covid pandemic. She denies fever, cough, chest pain, palpitation, shortness of breath, leg swelling. Past Medical History Cardiac Medical History: Reports: Hyperlipidema, Hypertension Denies: Myocardial Infarction Pulmonary Medical History: Denies: Asthma, Bronchitis, Chronic Obstructive Pulmonary Disease (COPD), Pneumonia Neurological Medical History: Reports: Migraine Denies: Seizures Endocrine Medical History: Reports: Hypothyroidism - Has not taken medication in years and is not with concern for this any more Musculoskeltal Medical History: Reports: Arthritis - HANDS, BACK Psychiatric Medical History: Reports: Depression Hematology: Reports: Anemia Past Surgical History Past Surgical History: Reports: Section - 1, Gastric Bypass Surgery - in 1999, Hysterectomy Social History Information Source: Patient Lives with: Family Smoking Status: Current Every Day Smoker Frequency of Alcohol Use: None Hx Recreational Drug Use: No Hx Prescription Drug Abuse: No - Advance Directive Resuscitation Status: Full Code Family History Family History: Arthritis, CAD, DM, Hypertension, Other - No TIAs. denies: CVA Parental Family History Reviewed: Yes Children Family History Reviewed: Yes Sibling(s) Family History Reviewed.: Yes Medication/Allergy Home Medications: Atorvastatin Calcium [Lipitor 20 mg Tablet] 20 mg PO QHS 04/11/20 Hydrochlorothiazide [Hydrodiuril 25 mg Tablet] 25 mg PO QAM 04/11/20 Lisinopril [Zestril] 40 mg PO DAILY 04/11/20 Meloxicam [Mobic] 7.5 mg PO BID 04/11/20 Methocarbamol [Robaxin 750 mg Tablet] 750 mg PO TID 04/11/20 Allergies/Adverse Reactions: pentazocine HCl [From Talwin Compound] Allergy (Severe, Verified 04/10/20 18:20) AMS Tetanus Vaccines and Toxoid [Tetanus] Allergy (Severe, Verified 04/10/20 18:20) AMS Penicillins Allergy (Mild, Verified 04/10/20 18:20) Rash aspirin [Aspirin] Allergy (Unknown, Verified 04/10/20 18:20) Review of Systems Constitutional: PRESENT: as per HPI Eyes: ABSENT: visual disturbances Ears: ABSENT: hearing changes Nose, Mouth, and Throat: ABSENT: as per HPI, headache(s), mouth pain, sore throat, vertigo, other Cardiovascular: ABSENT: chest pain, dyspnea on exertion, edema, orthropnea, palpitations Respiratory: ABSENT: cough, hemoptysis Gastrointestinal: PRESENT: as per HPI Genitourinary: ABSENT: dysuria, hematuria Musculoskeletal: ABSENT: joint swelling Integumentary: ABSENT: rash, wounds Neurological: ABSENT: abnormal gait, abnormal speech, confusion, dizziness, focal weakness, syncope Psychiatric: ABSENT: anxiety, depression, homidical ideation, suicidal ideation Endocrine: ABSENT: cold intolerance, heat intolerance, polydipsia, polyuria Hematologic/Lymphatic: ABSENT: easy bleeding, easy bruising Physical Exam Vital Signs: Temp Pulse Resp BP Pulse Ox 98.4 F 88 16 110/72 99 04/10/20 18:19 04/10/20 20:44 04/10/20 18:19 04/10/20 20:44 04/10/20 18:19 Intake & Output 04/09/20 04/10/20 04/11/20 06:59 06:59 06:59 Intake Total 1000 Balance 1000 Additional comments: GENERAL APPEARANCE: Appears pale, not in distress, alert and oriented x4 HEENT: Normocephalic and atraumatic. No scleral icterus. Dry buccal mucosa NECK: Supple. No thyroid enlargement. No lymphadenopathy or tenderness. No JVD CHEST: Symmetric. Nontender to palpation. LUNGS: Breath sounds are equal and clear bilaterally. No wheezes, rhonchi, or rales. HEART: Regular rate and rhythm with normal S1 and S2. No murmurs, gallops, or rubs. ABDOMEN: Soft, flat, moves with respiration, positive bowel sounds, no direct or rebound tenderness No mass or organomegaly appreciated. No CVA tenderness EXTREMITIES: No cyanosis, clubbing, or edema. MUSCULOSKELETAL: No deformity, atrophy or swelling noted PSYCHIATRIC: Appropriate mood and affect. SKIN: Warm, dry, and well perfused. No lesions or rashes are noted. NEUROLOGIC: No focal sensory or motor deficits are noted. Results Laboratory Results: 04/10/20 18:38 04/10/20 18:38 04/10/20 04/10/20 04/10/20 18:38 18:38 18:38 WBC 10.1 RBC 3.73 Hgb 8.7 L Hct 27.3 L MCV 73 L MCH 23.2 L MCHC 31.7 L RDW 18.0 H Plt Count 283 Seg Neutrophils % 69.6 Sodium 134.6 L Potassium 4.9 Chloride 101 Carbon Dioxide 20 L Anion Gap 14 BUN 61 H Creatinine 1.12 Est GFR ( Amer) > 60 Glucose 101 Calcium 9.6 Total Bilirubin 0.3 AST 21 Alkaline Phosphatase 84 Total Protein 6.8 Albumin 4.2 Urine Color Urine Appearance Urine pH Ur Specific [place] Urine Protein Urine Glucose (UA) Urine Ketones Urine Blood Urine Nitrite Ur Leukocyte Esterase Urine WBC (Auto) Urine RBC (Auto) Blood Type A POSITIVE Antibody Screen NEGATIVE 04/10/20 20:15 WBC RBC Hgb Hct MCV MCH MCHC RDW Plt Count Seg Neutrophils % Sodium Potassium Chloride Carbon Dioxide Anion Gap BUN Creatinine Est GFR ( Amer) Glucose Calcium Total Bilirubin AST Alkaline Phosphatase Total Protein Albumin Urine Color STRAW Urine Appearance CLEAR Urine pH 5.0 Ur Specific [place] 1.011 Urine Protein NEGATIVE Urine Glucose (UA) NEGATIVE Urine Ketones NEGATIVE Urine Blood NEGATIVE Urine Nitrite NEGATIVE Ur Leukocyte Esterase NEGATIVE Urine WBC (Auto) 0 Urine RBC (Auto) 0 Blood Type Antibody Screen 04/10/20 04/10/20 18:38 18:38 Creatine Kinase 69 CK-MB (CK-2) 0.92 Troponin I < 0.012 Assessment and Plan - Diagnosis (1) GI bleeding Qualifiers: GI bleed type/associated pathology: unspecified gastrointestinal hemorrhage type Qualified Code(s): K92.2 - Gastrointestinal hemorrhage, unspecified Is this a current diagnosis for this admission?: Yes Plan: Patient with a history of duodenal ulcer in the past Presents with episodes of presyncope H&H on presentation was 27.3/8.7 Occult stool blood test positive Started on IV Protonix Kept her n.p.o. for now Type crossmatch and transfuse with 2 units of packed RBC Monitor H&H every 6 hourly Keep 2 large-bore IV access Surgery on board for possible endoscopy need reccs appreciated (2) Anemia Qualifiers: Anemia type: unspecified type Qualified Code(s): D64.9 - Anemia, un specified Is this a current diagnosis for this admission?: Yes Plan: Patient presents with severe symptomatic anemia from GI loss H&H 8.7/27.3 Currently has been transfused 2 with 2 units of packed RBC We will treat underlying cause as stated above (3) Hypertension Qualifiers: Hypertension type: essential hypertension Qualified Code(s): I10 - Essential (primary) hypertension Is this a current diagnosis for this admission?: Yes Plan: We will hold hypertensive medication due to risk of hypotension from GI bleed (4) Hyperlipidemia Qualifiers: Hyperlipidemia type: unspecified Qualified Code(s): E78.5 - Hyperlipidemia, unspecified Is this a current diagnosis for this admission?: Yes Plan: Continue atorvastatin - Time Time Spent with patient: 35 or more minutes Total Critical Time (Minutes): 50 Medications reviewed and adjusted accordingly: Yes Anticipated Discharge Disposition: Home, Self Care Anticipated Discharge Timeframe: within 72 hours - Inpatient Certification Medical Necessity: Significant Comorbidiites Make Outpatient Treatment Too Risky, Need Close Monitoring Due to Risk of Patient Decompensation, Need For IV Fluids Post Hospital Care: D/C or Transfer Summary
[2020-04-10] MEDS ORDERED: ONDANSETRON HCL INJ/PF 4 MG/2 ML SDV IV ONE (22:27)
--- NOTE | 2020-04-10 22:41 | RADIOLOGY REPORT (SQ) ---
CLINICAL INDICATION: gi bleed. . TECHNIQUE: Contrast enhanced spiral axial CT imaging was obtained of the abdomen and pelvis with multiplanar reconstructions. This exam was performed according to our departmental dose-optimization program, which includes automated exposure control, adjustment of the mA and/or kV according to patient size and/or use of iterative reconstruction techniques. Additional delayed phase imaging COMPARISON: None available. Specifically February 05, 2018 is not available. CORRELATION: None. FINDINGS: Abdomen: The lung bases are grossly clear. The heart is of normal size. No evidence of pleural or pericardial fluid. The liver is homogeneous. Mild intrahepatic and extra hepatic biliary ductal dilatation, likely due to postsurgical state. The gallbladder is surgically absent. The pancreas is unremarkable. The spleen is unremarkable. The adrenals are unremarkable. The kidneys demonstrate bilateral hydronephrosis left greater than right.. Nephrograms are symmetric and excretion is identified on delayed phase imaging. The size and not consistent with a high-grade obstruction There is no evidence of free air. No free fluid. No bulky adenopathy. Abdominal aorta is calcified but nonaneurysmal. Pelvis: The bowel is nonobstructed. The bowel is unopacified with oral contrast. Pelvic contents demonstrate physiologic distention of the urinary bladder. The appendix is is not seen. Significant hard stool within the colon distally extending from sigmoid to rectum with fecal impaction within the rectum. This reaches maximum cross-sectional dimension of 8.1 cm. No focal inflammatory changes. Postsurgical change is seen to the bowel. Please correlate with history. The uterus appears to be surgically absent. No extravasation of contrast is identified on delayed phase imaging to suggest active gastrointestinal hemorrhage.. Visualized bones are unremarkable. IMPRESSION: Significant hard stool within the colon distally with fecal impaction within the rectum. No high-grade obstruction. No extravasation of contrast is identified. Bilateral hydronephrosis. Symmetric nephrograms and excretion is seen arguing against a high-grade obstruction current examination. ADDENDUM: Prior CT February 05, 2018 has been retrieved. The left-sided hydronephrosis was present on that examination.. It is progressive from prior. The right-sided hydronephrosis is new from prior. The 5 sites heart may be partly due to distention of the urinary bladder
[2020-04-11] MEDS: MORPHINE SULFATE 10 MG/ML INJ IV PRN ×3 (00:45→17:08)
[2020-04-11] MEDS: RINGERS SOLUTION,LACTATED 1,000 ML IV PRN ×2 (00:48→15:35)
[2020-04-11 03:39] LABS: ABSOLUTE EOSINOPHILS # (AUTO) 0.1 10^3/uL (0.0-0.6); ABSOLUTE MONOCYTES (AUTO) 0.5 10^3/uL (0.1-1.4); ABSOLUTE NEUT (AUTO) 2.7 10^3/uL (1.7-8.2); BASOPHILS % (AUTO) 0.8 % (0-2); EOSINOPHILS % (AUTO) 1.1 % (0-6); HEMATOCRIT 23.1 % (36.0-47.0); LYMPHOCYTES % (AUTO) 37.8 % (13-45); MEAN CORPUSCULAR HEMOGLOBIN 23.4 pg (27.0-33.4); MEAN CORPUSCULAR VOLUME 73 fl (80-97); MONOCYTES % (AUTO) 9.3 % (3-13); PLATELET COUNT 184 10^3/uL (150-450); RED BLOOD COUNT 3.16 10^6/uL (3.72-5.28); RED CELL DISTRIBUTION WIDTH 17.6 % (11.5-14.0); TOTAL CELLS COUNTED % (AUTO) 100 %; WHITE BLOOD COUNT 5.4 10^3/uL (4.0-10.5)
[2020-04-11 03:41] LABS: HEMOGLOBIN 7.4 g/dL (12.0-15.5)
[2020-04-11] MEDS ORDERED: DEXTROSE 40% GEL 15 GM TUBE X 2 PO PRN (06:30)
[2020-04-11] MEDS ORDERED: DEXTROSE 40% GEL 15 GM TUBE PO PRN (06:30)
[2020-04-11] MEDS ORDERED: DEXTROSE 50%-WATER SYRINGE 25 GM/50 ML DOSE IV PRN (06:30)
[2020-04-11] MEDS ORDERED: GLUCAGON,HUMAN RECOMB 1 MG INJ IM PRN (06:30)
[2020-04-11] MEDS ORDERED: DEXTROSE 50%-WATER SYRINGE 12.5 GM/25 ML DOSE IV PRN (06:30)
--- NOTE | 2020-04-11 07:44 | PDOC CONSULTATION ---
Consultation Consult Date: 04/11/20 Provider Consulted: SURGICAL SURGICALIST Consult reason:: anemia History of Present Illness Admission Date/PCP: 04/10/20 22:23 HOLLI THOMAS MD History of Present Illness: FABI KAUR is a 60 year old female seen in consultation at the request of the hospitalist service. This is a patient with chronic anemia, of previously uncertain etiology. The patient does have multiple reasons for anemia. She complains of melanotic stool, hemorrhoids (with frequent, small-volume bleeding with defecation), she has a history of gastric bypass, and she continues to smoke. She reports dizziness, orthostasis, fatigue, and weakness. She also reports "dark-colored stools". Her last EGD and colonoscopy were [address] Bennett[address] At that time he found marginal ulcers in her gastric pouch, at the anastomosis. He also found mild colitis. The patient did not follow-up with him afterwards. She does not take any B12 supplements or folic acid. She de nies any hematemesis, abdominal pain, or recent nausea/vomiting. Past Medical History Cardiac Medical History: Reports: Hyperlipidema, Hypertension Denies: Myocardial Infarction Pulmonary Medical History: Denies: Asthma, Bronchitis, Chronic Obstructive Pulmonary Disease (COPD), Pneumonia Neurological Medical History: Reports: Migraine Denies: Seizures Endocrine Medical History: Reports: Hypothyroidism - Has not taken medication in years and is not with concern for this any more Musculoskeltal Medical History: Reports: Arthritis - HANDS, BACK Psychiatric Medical History: Reports: Depression Hematology: Reports: Anemia Past Surgical History Past Surgical History: Reports: Section - 1, Gastric Bypass Surgery - in 1999, Hysterectomy, Other - EGD and colonoscopy in 2018 Social History Lives with: Family Smoking Status: Current Every Day Smoker Electronic Cigarette use?: No Frequency of Alcohol Use: None Hx Recreational Drug Use: No Hx Prescription Drug Abuse: No - Advance Directive Resuscitation Status: Full Code Family History Family History: Arthritis, CAD, DM, Hypertension, Other - No TIAs. denies: CVA Parental Family History Reviewed: Yes Children Family History Reviewed: Yes Sibling(s) Family History Reviewed.: Yes Medication/Allergy Home Medications: Atorvastatin Calcium [Lipitor 20 mg Tablet] 20 mg PO QHS 04/11/20 Hydrochlorothiazide [Hydrodiuril 25 mg Tablet] 25 mg PO QAM 04/11/20 Lisinopril [Zestril] 40 mg PO DAILY 04/11/20 Meloxicam [Mobic] 7.5 mg PO BID 04/11/20 Methocarbamol [Robaxin 750 mg Tablet] 750 mg PO TID 04/11/20 Allergies/Adverse Reactions: pentazocine HCl [From Talwin Compound] Allergy (Severe, Verified 04/10/20 18:20) AMS Tetanus Vaccines and Toxoid [Tetanus] Allergy (Severe, Verified 04/10/20 18:20) AMS Penicillins Allergy (Mild, Verified 04/10/20 18:20) Rash aspirin [Aspirin] Allergy (Unknown, Verified 04/10/20 18:20) Review of Systems Constitutional: PRESENT: fatigue, weakness. ABSENT: anorexia, chills Eyes: ABSENT: visual disturbances Ears: ABSENT: hearing changes Nose, Mouth, and Throat: PRESENT: headache(s) Cardiovascular: ABSENT: chest pain, dyspnea on exertion Respiratory: ABSENT: dyspnea Gastrointestinal: PRESENT: hematochezia - She relates this to hemorrhoids, melena. ABSENT: abdominal pain, bloating, hematemesis, nausea, vomiting Genitourinary: ABSENT: dysuria Musculoskeletal: ABSENT: back pain Integumentary: ABSENT: pruritus, rash Neurological: PRESENT: dizziness, weakness. ABSENT: confusion, convulsions Psychiatric: ABSENT: anxiety, depression Endocrine: ABSENT: cold intolerance, heat intolerance Hematologic/Lymphatic: ABSENT: easy bleeding, easy bruising Physical Exam Vital Signs: Temp Pulse Resp BP Pulse Ox 98.0 F 64 14 120/68 100 04/11/20 07:04 04/11/20 07:04 04/11/20 07:04 04/11/20 07:04 04/11/20 07:04 Intake & Output 04/10/20 04/11/20 04/12/20 06:59 06:59 06:59 Intake Total 2540 Output Total 1350 Balance 1190 Weight 86 kg General appearance: PRESENT: no acute distress, cooperative Head exam: PRESENT: atraumatic, normocephalic Eye exam: PRESENT: EOMI, PERRLA. ABSENT: scleral icterus Mouth exam: PRESENT: moist, neck supple Neck exam: ABSENT: meningismus, tenderness, thyromegaly, tracheal deviation Respiratory exam: PRESENT: unlabored. ABSENT: tachypnea, wheezes Cardiovascular exam: ABSENT: tachycardia Vascular exam: PRESENT: pallor GI/Abdominal exam: PRESENT: soft. ABSENT: distended, tenderness Rectal exam: PRESENT: deferred Extremities exam: ABSENT: clubbing Neurological exam: PRESENT: alert, awake, oriented to person, oriented to place, oriented to time, oriented to situation Psychiatric exam: ABSENT: agitated, anxious, depressed Focused psych exam: ABSENT: delusional Skin exam: ABSENT: cyanosis, erythema, jaundice Results Laboratory Results: 04/11/20 02:30 04/10/20 18:38 04/10/20 04/10/20 04/10/20 18:38 18:38 18:38 WBC 10.1 RBC 3.73 Hgb 8.7 L Hct 27.3 L MCV 73 L MCH 23.2 L MCHC 31.7 L RDW 18.0 H Plt Count 283 Seg Neutrophils % 69.6 Sodium 134.6 L Potassium 4.9 Chloride 101 Carbon Dioxide 20 L Anion Gap 14 BUN 61 H Creatinine 1.12 Est GFR ( Amer) > 60 Glucose 101 Calcium 9.6 Total Bilirubin 0.3 AST 21 Alkaline Phosphatase 84 Total Protein 6.8 Albumin 4.2 Urine Color Urine Appearance Urine pH Ur Specific [place] Urine Protein Urine Glucose (UA) Urine Ketones Urine Blood Urine Nitrite Ur Leukocyte Esterase Urine WBC (Auto) Urine RBC (Auto) Blood Type A POSITIVE Antibody Screen NEGATIVE 04/10/20 04/11/20 20:15 02:30 WBC 5.4 RBC 3.16 L Hgb 7.4 L Hct 23.1 L MCV 73 L MCH 23.4 L MCHC 32.0 RDW 17.6 H Plt Count 184 Seg Neutrophils % 51.0 Sodium Potassium Chloride Carbon Dioxide Anion Gap BUN Creatinine Est GFR ( Amer) Glucose Calcium Total Bilirubin AST Alkaline Phosphatase Total Protein Albumin Urine Color STRAW Urine Appearance CLEAR Urine pH 5.0 Ur Specific [place] 1.011 Urine Protein NEGATIVE Urine Glucose (UA) NEGATIVE Urine Ketones NEGATIVE Urine Blood NEGATIVE Urine Nitrite NEGATIVE Ur Leukocyte Esterase NEGATIVE Urine WBC (Auto) 0 Urine RBC (Auto) 0 Blood Type Antibody Screen 04/10/20 04/10/20 18:38 18:38 Creatine Kinase 69 CK-MB (CK-2) 0.92 Troponin I < 0.012 Impressions: Abdomen/Pelvis CT 04/10/20 20:46 IMPRESSION: Significant hard stool within the colon distally with fecal impaction within the rectum. No high-grade obstruction. No extravasation of contrast is identified. Bilateral hydronephrosis. Symmetric nephrograms and excretion is seen arguing against a high-grade obstruction current examination. ADDENDUM: Prior CT February 05, 2018 has been retrieved. The left-sided hydronephrosis was present on that examination.. It is progressive from prior. The right-sided hydronephrosis is new from prior. The 5 sites heart may be partly due to distention of the urinary bladder Assessment & Plan - Diagnosis (1) Anemia Qualifiers: Anemia type: unspecified type Qualified Code(s): D64.9 - Anemia, unspecified Is this a current diagnosis for this admission?: Yes - Plan Summary Plan Summary: This is a 60-year-old female with multiple reasons for chronic anemia. She has had a gastric bypass in the past, but does not follow-up with any physician to have B12 supplements or other required monitoring. She also continues to smoke, and has a history of marginal ulcers. She has hemorrhoids, that cause small amounts of bleeding every day. She has not had any large-volume hematochezia or hematemesis. I do not believe that she is actively bleeding at this time. Her abdominal exam is completely benign. Continue with transfusion for now. Plan for colonoscopy tomorrow, +/- EGD. Check B12 level. Hematology consult may be prudent.
[2020-04-11] MEDS ORDERED: BISACODYL 5 MG TABEC PO ONE (08:15)
[2020-04-11] MEDS: LISINOPRIL 10 MG TABLET PO SCH (09:44)
[2020-04-11] MEDS: POLYETHYLENE GLYCOL 3350 POWDER 17 GM/1 PACKET PO ONE ×2 (09:44→13:01)
[2020-04-11] MEDS: METHOCARBAMOL 750 MG TABLET PO SCH ×3 (09:46→17:08)
[2020-04-11] MEDS: PANTOPRAZOLE SODIUM 40 MG VIAL IV SCH ×2 (09:47→21:18)
--- NOTE | 2020-04-11 10:03 | PDOC PROGRESS REPORT ---
Subjective Progress Note for:: 04/11/20 Subjective:: As per admitting physician notes FABI KAUR is a 60 year old female with a history of hypertension, hyperlipidemia, chronic anemia since 2005 likely from duodenal ulcer and chronic gastritis presents today to ER after having 3 episodes of lightheadedness since waking up this morning. She reports feeling very tired when waking up and was lightheaded when trying to help her grandchildren. The lightheadedness was worse when she tried to stood up and she had 3 episodes of fainting since this morning which she describes as " I almost passed out" but denies total loss of consciousness, fall, head injury, nausea, vomiting, hematemesis or hematochezia. She states that she has been having greenish stool for the past few weeks. She takes meloxicam for joint and gum pain. She says she had an appointment to see her GI doctor but her schedule was canceled because of Covid pandemic. She denies fever, cough, chest pain, palpitation, shortness of breath, leg swelling. 04/11/2020. On my encounter patient currently resting in bed in no apparent distress, waiting for her endoscopy, patient is stating that she is not taking supplemental vitamins and also using Mobic for her arthritis, denies any chest pain, nausea, vomiting, shortness of breath or any urinary symptoms. Reason For Visit: GI BLEEDING,ANEMIA,PRESYNCOPE Physical Exam Vital Signs: Temp Pulse Resp BP Pulse Ox 98.2 F 65 18 100/60 97 04/11/20 08:12 04/11/20 08:12 04/11/20 08:12 04/11/20 08:12 04/11/20 08:12 Intake & Output 04/10/20 04/11/20 04/12/20 06:59 06:59 06:59 Intake Total 2540 300 Output Total 1350 Balance 1190 300 Weight 86 kg General appearance: PRESENT: no acute distress, obese Respiratory exam: PRESENT: clear to auscultation luis. ABSENT: rales, rhonchi, wheezes Cardiovascular exam: PRESENT: RRR. ABSENT: diastolic murmur, rubs, systolic murmur GI/Abdominal exam: PRESENT: normal bowel sounds, soft. ABSENT: distended, guarding, mass, organolmegaly, rebound, tenderness Neurological exam: PRESENT: alert, awake, oriented to person, oriented to place, oriented to time, oriented to situation, CN II-XII grossly intact. ABSENT: motor sensory deficit Results Laboratory Results: 04/11/20 02:30 04/10/20 18:38 04/10/20 04/10/20 04/10/20 18:38 18:38 18:38 WBC 10.1 RBC 3.73 Hgb 8.7 L Hct 27.3 L MCV 73 L MCH 23.2 L MCHC 31.7 L RDW 18.0 H Plt Count 283 Seg Neutrophils % 69.6 Sodium 134.6 L Potassium 4.9 Chloride 101 Carbon Dioxide 20 L Anion Gap 14 BUN 61 H Creatinine 1.12 Est GFR ( Amer) > 60 Glucose 101 Calcium 9.6 Total Bilirubin 0.3 AST 21 Alkaline Phosphatase 84 Total Protein 6.8 Albumin 4.2 Urine Color Urine Appearance Urine pH Ur Specific [place] Urine Protein Urine Glucose (UA) Urine Ketones Urine Blood Urine Nitrite Ur Leukocyte Esterase Urine WBC (Auto) Urine RBC (Auto) Blood Type A POSITIVE Antibody Screen NEGATIVE 04/10/20 04/11/20 20:15 02:30 WBC 5.4 RBC 3.16 L Hgb 7.4 L Hct 23.1 L MCV 73 L MCH 23.4 L MCHC 32.0 RDW 17.6 H Plt Count 184 Seg Neutrophils % 51.0 Sodium Potassium Chloride Carbon Dioxide Anion Gap BUN Creatinine Est GFR ( Amer) Glucose Calcium Total Bilirubin AST Alkaline Phosphatase Total Protein Albumin Urine Color STRAW Urine Appearance CLEAR Urine pH 5.0 Ur Specific [place] 1.011 Urine Protein NEGATIVE Urine Glucose (UA) NEGATIVE Urine Ketones NEGATIVE Urine Blood NEGATIVE Urine Nitrite NEGATIVE Ur Leukocyte Esterase NEGATIVE Urine WBC (Auto) 0 Urine RBC (Auto) 0 Blood Type Antibody Screen 04/10/20 04/10/20 18:38 18:38 Creatine Kinase 69 CK-MB (CK-2) 0.92 Troponin I < 0.012 Impressions: Abdomen/Pelvis CT 04/10/20 20:46 IMPRESSION: Significant hard stool within the colon distally with fecal impaction within the rectum. No high-grade obstruction. No extravasation of contrast is identified. Bilateral hydronephrosis. Symmetric nephrograms and excretion is seen arguing against a high-grade obstruction current examination. ADDENDUM: Prior CT February 05, 2018 has been retrieved. The left-sided hydronephrosis was present on that examination.. It is progressive from prior. The right-sided hydronephrosis is new from prior. The 5 sites heart may be partly due to distention of the urinary bladder Assessment and Plan - Diagnosis (1) GI bleeding Qualifiers: GI bleed type/associated pathology: unspecified gastrointestinal hemorrhage type Qualified Code(s): K92.2 - Gastrointestinal hemorrhage, unspecified Is this a current diagnosis for this admission?: Yes Plan: History of gastric bypass and duodenal ulcer and external hemorrhoids. 03/12/2018. Upper GI endoscopy gastrojejunal healed ulcer. Biopsy negative for dysplasia, malignancy, Helicobacter pylori. Patient also takes Mobic for her arthritis. Presented with episodes of presyncope H&H on presentation was 27.3/8.7 Occult stool blood test positive Status post 2 PRBC transfusion. Surgery consulted. Pending upper and lower GI endoscopy. Continue IV PPIs, monitor H&H, vitals and volume status. (2) Hyperlipidemia Qualifiers: Hyperlipidemia type: unspecified Qualified Code(s): E78.5 - Hyperlipidemia, unspecified Is this a current diagnosis for this admission?: Yes Plan: Diet and lifestyle modification recommended. Resume home meds. Outpatient PCP follow-up. (3) Hypertension Qualifiers: Hypertension type: essential hypertension Qualified Code(s): I10 - Essential (primary) hypertension Is this a current diagnosis for this admission?: Yes Plan: Presented with hypotension and syncope due to GI bleed. Antihypertensives on hold. Resume once appropriate. Monitor volume status and adjust meds as needed. (4) Anemia Qualifiers: Anemia type: iron deficiency Qualified Code(s): D64.9 - Anemia, unspecified Is this a current diagnosis for this admission?: Yes Plan: Acute on chronic iron deficiency anemia. B12 iron deficiency anemia is a possibility as patient history of gastric bypass not taking supplemental vitamins. Presented with severe symptomatic anemia from GI loss H&H 8.7/27.3 on admission. Status post 2 PRBC transfusion. Monitor H&H. Serum iron, ferritin, transferrin, folic acid and B12. (5) Obesity Qualifiers: Obesity type: due to excess calories Body mass index: BMI 32.0-32.9 Is this a current diagnosis for this admission?: Yes Plan: Status post gastric bypass. Diet and lifestyle modification recommended. - Time Time Spent with patient: 25-34 minutes Medications reviewed and adjusted accordingly: Yes Anticipated Discharge Disposition: Home, Self Care Anticipated Discharge Timeframe: within 48 hours
[2020-04-11 12:56] LABS: HEMATOCRIT 30.8 % (36.0-47.0); MEAN CORPUSCULAR HEMOGLOBIN 24.9 pg (27.0-33.4); MEAN CORPUSCULAR HGB CONC 32.4 g/dL (32.0-36.0); PLATELET COUNT 174 10^3/uL (150-450); RED BLOOD COUNT 4.02 10^6/uL (3.72-5.28); RED CELL DISTRIBUTION WIDTH 18.7 % (11.5-14.0); WHITE BLOOD COUNT 5.7 10^3/uL (4.0-10.5)
[2020-04-11 12:58] LABS: MEAN CORPUSCULAR VOLUME 77 fl (80-97)
[2020-04-11 13:00] LABS: ABSOLUTE RETICS # 0.078 10^6/uL (0.028-0.122); RETICULOCYTE COUNT (AUTO) 1.93 % (0.66-2.85)
[2020-04-11] MEDS ORDERED: POLYETHYLENE GLYCOL 3350 POWDER 17 GM/1 PACKET PO ONE (13:00)
[2020-04-11 13:17] LABS: IRON(TIBC) 385.6 ug/dL (37-170)
[2020-04-11 13:18] LABS: ANION GAP 9 (5-19); CARBON DIOXIDE 22 mmol/L (22-30); CHLORIDE 106 mmol/L (98-107); GLUCOSE 111 mg/dL (75-110); POTASSIUM 4.3 mmol/L (3.6-5.0)
[2020-04-11 13:31] LABS: BLOOD UREA NITROGEN 37 mg/dL (7-20)
[2020-04-11 14:21] LABS: FOLATE 4.94 ng/mL (>2.76)
--- NOTE | 2020-04-11 19:16 | EKG REPORT ---
SEVERITY:- ABNORMAL ECG - SINUS RHYTHM NONSPECIFIC T ABNORMALITIES, LATERAL LEADS : Confirmed by: Curtis eHrnandez MD 11-Apr-2020 19:15:31
[2020-04-11] MEDS: ATORVASTATIN CALCIUM 20 MG TABLET PO SCH (21:18)
[2020-04-11 22:38] LABS: HEMATOCRIT 30.2 % (36.0-47.0); HEMOGLOBIN 9.6 g/dL (12.0-15.5); MEAN CORPUSCULAR HEMOGLOBIN 24.3 pg (27.0-33.4); MEAN CORPUSCULAR HGB CONC 31.8 g/dL (32.0-36.0); MEAN CORPUSCULAR VOLUME 76 fl (80-97); PLATELET COUNT 178 10^3/uL (150-450); RED BLOOD COUNT 3.96 10^6/uL (3.72-5.28); WHITE BLOOD COUNT 6.7 10^3/uL (4.0-10.5)
[2020-04-11] MEDS: MELATONIN 5 MG TABLET PO PRN (23:07)
[2020-04-12] MEDS: RINGERS SOLUTION,LACTATED 1,000 ML IV PRN (03:12)
[2020-04-12 06:44] LABS: ABSOLUTE BASOPHILS # (AUTO) 0.1 10^3/uL (0.0-0.2); ABSOLUTE EOSINOPHILS # (AUTO) 0.2 10^3/uL (0.0-0.6); ABSOLUTE LYMPHOCYTES (AUTO) 1.9 10^3/uL (0.5-4.7); ABSOLUTE MONOCYTES (AUTO) 0.4 10^3/uL (0.1-1.4); ABSOLUTE NEUT (AUTO) 2.2 10^3/uL (1.7-8.2); BASOPHILS % (AUTO) 1.2 % (0-2); EOSINOPHILS % (AUTO) 4.4 % (0-6); HEMOGLOBIN 8.5 g/dL (12.0-15.5); LYMPHOCYTES % (AUTO) 40.3 % (13-45); MEAN CORPUSCULAR HGB CONC 32.9 g/dL (32.0-36.0); MEAN CORPUSCULAR VOLUME 76 fl (80-97); MONOCYTES % (AUTO) 8.5 % (3-13); PLATELET COUNT 161 10^3/uL (150-450); RED BLOOD COUNT 3.41 10^6/uL (3.72-5.28); RED CELL DISTRIBUTION WIDTH 18.9 % (11.5-14.0); SEGMENTED NEUTROPHILS % (AUTO) 45.6 % (42-78); TOTAL CELLS COUNTED % (AUTO) 100 %; WHITE BLOOD COUNT 4.8 10^3/uL (4.0-10.5)
[2020-04-12 07:01] LABS: ANION GAP 7 (5-19); BLOOD UREA NITROGEN 24 mg/dL (7-20); CALCIUM 8.9 mg/dL (8.4-10.2); CARBON DIOXIDE 22 mmol/L (22-30); CHLORIDE 108 mmol/L (98-107); CHOLESTEROL 102.15 mg/dL (0-200); POTASSIUM 4.7 mmol/L (3.6-5.0); TRIGLYCERIDES 199 mg/dL (<150)
[2020-04-12 07:16] LABS: DIRECT LDL 41 mg/dL (<100)
[2020-04-12 07:19] LABS: VLDL CHOLESTEROL 39.8 mg/dL (10-31)
[2020-04-12 07:20] LABS: GLUCOSE 66 mg/dL (75-110)
[2020-04-12] MEDS ORDERED: INFLUENZA QUAD (6MOS+) 2020-21 VAC 0.5 ML SYR IM ONE (08:00)
[2020-04-12] MEDS ORDERED: PEG 3350/NA SULF,BICARB,CL/KCL 4000 ML PO PRN (08:54)
[2020-04-12] MEDS ORDERED: DEXTROSE 5%-NORMAL SALINE 1,000 ML IV PRN (08:57)
--- NOTE | 2020-04-12 09:03 | PDOC PROGRESS REPORT ---
Subjective Progress Note for:: 04/12/20 Subjective:: As per admitting physician notes FABI KAUR is a 60 year old female with a history of hypertension, hyperlipidemia, chronic anemia since 2006 likely from duodenal ulcer and chronic gastritis presents today to ER after having 3 episodes of lightheadedness since waking up this morning. She reports feeling very tired when waking up and was lightheaded when trying to help her grandchildren. The lightheadedness was worse when she tried to stood up and she had 3 episodes of fainting since this morning which she describes as " I almost passed out" but denies total loss of consciousness, fall, head injury, nausea, vomiting, hematemesis or hematochezia. She states that she has been having greenish stool for the past few weeks. She takes meloxicam for joint and gum pain. She says she had an appointment to see her GI doctor but her schedule was canceled because of Covid pandemic. She denies fever, cough, chest pain, palpitation, shortness of breath, leg swelling. 04/11/2020. On my encounter patient currently resting in bed in no apparent distress, waiting for her endoscopy, patient is stating that she is not taking supplemental vitamins and also using Mobic for her arthritis, denies any chest pain, nausea, vomiting, shortness of breath or any urinary symptoms. 04/12/2020. No acute events overnight. Unfortunately patient's hemoglobin is still dropping however she denies any hemoptysis, hematemesis, nosebleed or melena. Patient has not had a bowel movement since admission. Probably low hemoglobin is hemodilution, patient is scheduled to undergo upper and lower GI endoscopy today. Denies any fever, chills, nausea, vomiting. Reason For Visit: GI BLEEDING,ANEMIA,PRESYNCOPE Physical Exam Vital Signs: Temp Pulse Resp BP Pulse Ox 97.7 F 65 16 118/72 100 04/12/20 08:05 04/12/20 08:05 04/12/20 08:05 04/12/20 08:05 04/12/20 08:05 Intake & Output 04/11/20 04/12/20 04/13/20 06:59 06:59 06:59 Intake Total 2540 4320 Output Total 1350 1900 Balance 1190 2420 Weight 86 kg 88.1 kg General appearance: PRESENT: no acute distress, obese, well-developed, well- nourished Head exam: PRESENT: atraumatic, normocephalic Respiratory exam: PRESENT: clear to auscultation luis. ABSENT: rales, rhonchi, wheezes Cardiovascular exam: PRESENT: RRR. ABSENT: diastolic murmur, rubs, systolic murmur GI/Abdominal exam: PRESENT: normal bowel sounds, soft. ABSENT: distended, guarding, mass, organolmegaly, rebound, tenderness Neurological exam: PRESENT: alert, awake, oriented to person, oriented to place, oriented to time, oriented to situation, CN II-XII grossly intact. ABSENT: motor sensory deficit Results Laboratory Results: 04/12/20 05:45 04/12/20 05:45 04/10/20 04/11/20 04/11/20 18:38 12:09 12:09 WBC 5.7 RBC 4.02 Hgb 10.0 L D Hct 30.8 L MCV 77 L D MCH 24.9 L MCHC 32.4 RDW 18.7 H Plt Count 174 Seg Neutrophils % Retic Count (auto) Sodium 136.8 L Potassium 4.3 Chloride 106 Carbon Dioxide 22 Anion Gap 9 BUN 37 H D Creatinine 0.91 Est GFR ( Amer) > 60 Glucose 111 H Calcium 9.0 Magnesium Iron TIBC % Saturation Ferritin Triglycerides Cholesterol LDL Cholesterol Direct VLDL Cholesterol HDL Cholesterol Vitamin B12 Folate TSH Blood Type A POSITIVE Antibody Screen NEGATIVE 04/11/20 04/11/20 04/11/20 12:09 12:09 12:09 WBC RBC Hgb Hct MCV MCH MCHC RDW Plt Count Seg Neutrophils % Retic Count (auto) 1.93 Sodium Potassium Chloride Carbon Dioxide Anion Gap BUN Creatinine Est GFR ( Amer) Glucose Calcium Magnesium Iron 385.6 H TIBC 456 H % Saturation 85 Ferritin 16.50 Triglycerides Cholesterol LDL Cholesterol Direct VLDL Cholesterol HDL Cholesterol Vitamin B12 271.0 281.0 Folate 4.94 TSH Blood Type Antibody Screen 04/11/20 04/12/20 04/12/20 22:07 05:45 05:45 WBC 6.7 4.8 RBC 3.96 3.41 L Hgb 9.6 L 8.5 L Hct 30.2 L 26.0 L MCV 76 L 76 L MCH 24.3 L 25.0 L MCHC 31.8 L 32.9 RDW 19.0 H 18.9 H Plt Count 178 161 Seg Neutrophils % 45.6 Retic Count (auto) Sodium 136.7 L Potassium 4.7 Chloride 108 H Carbon Dioxide 22 Anion Gap 7 BUN 24 H Creatinine 1.01 Est GFR ( Amer) > 60 Glucose 66 L Calcium 8.9 Magnesium 2.1 Iron TIBC % Saturation Ferritin Triglycerides 199 H Cholesterol 102.15 LDL Cholesterol Direct 41 VLDL Cholesterol 39.8 H HDL Cholesterol 22 L Vitamin B12 Folate TSH Blood Type Antibody Screen 04/12/20 05:45 WBC RBC Hgb Hct MCV MCH MCHC RDW Plt Count Seg Neutrophils % Retic Count (auto) Sodium Potassium Chloride Carbon Dioxide Anion Gap BUN Creatinine Est GFR ( Amer) Glucose Calcium Magnesium Iron TIBC % Saturation Ferritin Triglycerides Cholesterol LDL Cholesterol Direct VLDL Cholesterol HDL Cholesterol Vitamin B12 Folate TSH 2.78 Blood Type Antibody Screen 04/10/20 04/10/20 18:38 18:38 Creatine Kinase 69 CK-MB (CK-2) 0.92 Troponin I < 0.012 Impressions: Abdomen/Pelvis CT 04/10/20 20:46 IMPRESSION: Significant hard stool within the colon distally with fecal impaction within the rectum. No high-grade obstruction. No extravasation of contrast is identified. Bilateral hydronephrosis. Symmetric nephrograms and excretion is seen arguing against a high-grade obstruction current examination. ADDENDUM: Prior CT February 05, 2018 has been retrieved. The left-sided hydronephrosis was present on that examination.. It is progressive from prior. The right-sided hydronephrosis is new from prior. The 5 sites heart may be partly due to distention of the urinary bladder Assessment and Plan - Diagnosis (1) GI bleeding Qualifiers: GI bleed type/associated pathology: unspecified gastrointestinal hemorrhage type Qualified Code(s): K92.2 - Gastrointestinal hemorrhage, unspecified Is this a current diagnosis for this admission?: Yes Plan: Mild drop in hemoglobin likely hemodelusional. Denies any acute bleeding. History of gastric bypass and duodenal ulcer and external hemorrhoids. 03/12/2018. Upper GI endoscopy gastrojejunal healed ulcer. Biopsy negative for dysplasia, malignancy, Helicobacter pylori. Patient also takes Mobic for her arthritis. Presented with episodes of presyncope H&H on presentation was 27.3/8.7 Occult stool blood test positive Status post 2 PRBC transfusion. Surgery consulted. Pending upper and lower GI endoscopy. Continue IV PPIs, monitor H&H, vitals and volume status. (2) Hyperlipidemia Qualifiers: Hyperlipidemia type: unspecified Qualified Code(s): E78.5 - Hyperlipidemia, unspecified Is this a current diagnosis for this admission?: Yes Plan: Diet and lifestyle modification recommended. Resume home meds. Outpatient PCP follow-up. (3) Hypertension Qualifiers: Hypertension type: essential hypertension Qualified Code(s): I10 - Essential (primary) hypertension Is this a current diagnosis for this admission?: Yes Plan: Presented with hypotension and syncope due to GI bleed. Antihypertensives on hold. Resume once appropriate. Monitor volume status and adjust meds as needed. (4) Anemia Qualifiers: Anemia type: iron deficiency Is this a current diagnosis for this admission?: Yes Plan: Acute on chronic iron deficiency anemia. B12 iron deficiency anemia is a possibility as patient history of gastric bypass not taking supplemental vitamins. Presented with severe symptomatic anemia from GI loss H&H 8.7/27.3 on admission. Status post 2 PRBC transfusion. Monitor H&H. Serum iron, ferritin and percent saturation WNL. Folic acid and B12 WNL. Given history of gastric bypass patient will need supplemental B12 and other multivitamins. Start on supplemental ferrous sulfate guided by the results of upper GI endoscopy. (5) Obesity Qualifiers: Obesity type: due to excess calories Body mass index: BMI 32.0-32.9 Is this a current diagnosis for this admission?: Yes Plan: Status post gastric bypass. Hemoglobin A1c 4.2%. TSH WNL. Diet and lifestyle modification recommended. - Time Time Spent with patient: 25-34 minutes Medications reviewed and adjusted accordingly: Yes Anticipated Discharge Disposition: Home, Self Care Anticipated Discharge Timeframe: within 72 hours
--- NOTE | 2020-04-12 09:35 | PDOC PROGRESS REPORT ---
Subjective Progress Note for:: 04/12/20 Reason For Visit: GI BLEEDING,ANEMIA,PRESYNCOPE Patient denies but emesis. No rectal bleeding but stool still dark after MiraLAX; await PEG solution Patient reports a 14-year history of anemia, requiring iron transfusions, and blood transfusions. Last EGD and colonoscopy 2018. She does not know if she has a formal Aleksey-en-Y reconstruction. She has a history of marginal ulcer and hemorrhoids. Physical Exam Vital Signs: Temp Pulse Resp BP Pulse Ox 97.7 F 65 16 118/72 100 04/12/20 08:05 04/12/20 08:05 04/12/20 08:05 04/12/20 08:05 04/12/20 08:05 Intake & Output 04/11/20 04/12/20 04/13/20 06:59 06:59 06:59 Intake Total 2540 4320 Output Total 1350 1900 Balance 1190 2420 Weight 86 kg 88.1 kg General appearance: PRESENT: no acute distress GI/Abdominal exam: PRESENT: other - Midline scar consistent with previous surgery. The abdomen is benign no peritoneal signs no rigidity Results Laboratory Results: 04/12/20 05:45 04/12/20 05:45 04/10/20 04/11/20 04/11/20 18:38 12:09 12:09 WBC 5.7 RBC 4.02 Hgb 10.0 L D Hct 30.8 L MCV 77 L D MCH 24.9 L MCHC 32.4 RDW 18.7 H Plt Count 174 Seg Neutrophils % Retic Count (auto) Sodium 136.8 L Potassium 4.3 Chloride 106 Carbon Dioxide 22 Anion Gap 9 BUN 37 H D Creatinine 0.91 Est GFR ( Amer) > 60 Glucose 111 H Calcium 9.0 Magnesium Iron TIBC % Saturation Ferritin Triglycerides Cholesterol LDL Cholesterol Direct VLDL Cholesterol HDL Cholesterol Vitamin B12 Folate TSH Blood Type A POSITIVE Antibody Screen NEGATIVE 04/11/20 04/11/20 04/11/20 12:09 12:09 12:09 WBC RBC Hgb Hct MCV MCH MCHC RDW Plt Count Seg Neutrophils % Retic Count (auto) 1.93 Sodium Potassium Chloride Carbon Dioxide Anion Gap BUN Creatinine Est GFR ( Amer) Glucose Calcium Magnesium Iron 385.6 H TIBC 456 H % Saturation 85 Ferritin 16.50 Triglycerides Cholesterol LDL Cholesterol Direct VLDL Cholesterol HDL Cholesterol Vitamin B12 271.0 281.0 Folate 4.94 TSH Blood Type Antibody Screen 04/11/20 04/12/20 04/12/20 22:07 05:45 05:45 WBC 6.7 4.8 RBC 3.96 3.41 L Hgb 9.6 L 8.5 L Hct 30.2 L 26.0 L MCV 76 L 76 L MCH 24.3 L 25.0 L MCHC 31.8 L 32.9 RDW 19.0 H 18.9 H Plt Count 178 161 Seg Neutrophils % 45.6 Retic Count (auto) Sodium 136.7 L Potassium 4.7 Chloride 108 H Carbon Dioxide 22 Anion Gap 7 BUN 24 H Creatinine 1.01 Est GFR ( Amer) > 60 Glucose 66 L Calcium 8.9 Magnesium 2.1 Iron TIBC % Saturation Ferritin Triglycerides 199 H Cholesterol 102.15 LDL Cholesterol Direct 41 VLDL Cholesterol 39.8 H HDL Cholesterol 22 L Vitamin B12 Folate TSH Blood Type Antibody Screen 04/12/20 05:45 WBC RBC Hgb Hct MCV MCH MCHC RDW Plt Count Seg Neutrophils % Retic Count (auto) Sodium Potassium Chloride Carbon Dioxide Anion Gap BUN Creatinine Est GFR ( Amer) Glucose Calcium Magnesium Iron TIBC % Saturation Ferritin Triglycerides Cholesterol LDL Cholesterol Direct VLDL Cholesterol HDL Cholesterol Vitamin B12 Folate TSH 2.78 Blood Type Antibody Screen 04/10/20 04/10/20 18:38 18:38 Creatine Kinase 69 CK-MB (CK-2) 0.92 Troponin I < 0.012 Impressions: Abdomen/Pelvis CT 04/10/20 20:46 IMPRESSION: Significant hard stool within the colon distally with fecal impaction within the rectum. No high-grade obstruction. No extravasation of contrast is identified. Bilateral hydronephrosis. Symmetric nephrograms and excretion is seen arguing against a high-grade obstruction current examination. ADDENDUM: Prior CT February 05, 2018 has been retrieved. The left-sided hydronephrosis was present on that examination.. It is progressive from prior. The right-sided hydronephrosis is new from prior. The 5 sites heart may be partly due to distention of the urinary bladder Assessment & Plan - Diagnosis (1) GI bleeding Qualifiers: GI bleed type/associated pathology: unspecified gastrointestinal hemorrhage type Qualified Code(s): K92.2 - Gastrointestinal hemorrhage, unspecified Plan: Impression: Recurrent GI bleed, acute superimposed on chronic in patient with previous gastric bypass, presumably Aleksey-en-Y [place] jejunostomy, with per chen history of marginal ulcer; in need of upper and lower endoscopy Plan: 1. Will diet additional cathartic to clear her colon of residual stool and blood 2. We will plan upper and lower endoscopy today, LMAC, main operating room. I murphy her presumed anatomy on the board, and explained to her that if she has a bleeding source in her bypass stomach, we may not be able to access it. 3. Patient expresses understanding and agrees to proceed with above plan. (2) Anemia Qualifiers: Anemia type: iron deficiency - Time Time Spent: 30 to 50 Minutes Critical Time spent with patient: Less than 15 minutes Anticipated Discharge Disposition: Home, Self Care Anticipated Discharge Timeframe: within 48 hours
[2020-04-12] MEDS: LISINOPRIL 10 MG TABLET PO SCH ×2 (10:30→10:37)
[2020-04-12] MEDS: METHOCARBAMOL 750 MG TABLET PO SCH ×3 (10:32→17:26)
[2020-04-12] MEDS: PANTOPRAZOLE SODIUM 40 MG VIAL IV SCH ×2 (10:32→21:23)
[2020-04-12] MEDS: MORPHINE SULFATE 10 MG/ML INJ IV PRN ×2 (10:32→21:29)
[2020-04-12] MEDS ORDERED: PROPOFOL INJ 200 MG/20 ML VIAL IV ONE (14:27)
[2020-04-12] MEDS ORDERED: LIDOCAINE 0.5% INJ-PF (5 MG/ML) 50 ML SDV ONE (14:27)
[2020-04-12] MEDS ORDERED: GLUCAGON,HUMAN RECOMB 1 MG INJ ONE (18:08)
[2020-04-12] MEDS ORDERED: EPINEPHRINE INJ 1 MG/10 ML DISP.SYRIN ONE (18:08)
--- NOTE | 2020-04-12 19:30 | Operative Report ---
Operative Report DATE OF SURGERY: 04/12/20 PREOPERATIVE DIAGNOSIS: 1. Gastrointestinal bleed with melena. 2. History of anemia. 3. History of gastric bypass. 4. Internal and external hemorrhoids POSTOPERATIVE DIAGNOSIS: Same with. 1. No upper gastrointestinal source of bleeding from the esophagus, proximal gastric pouch, or jejunum up to 160 cm from the incisor. 2. No obvious source of bleeding in the colon. 3. Pandiverticulosis OPERATION: 1. Esophagogastrojejunoscopy. 2. Colonoscopy to cecum SURGEON: MAKI ORTIZ ANESTHESIA: LMAC TISSUE REMOVED OR ALTERED: None COMPLICATIONS: None ESTIMATED BLOOD LOSS: Essentially none INTRAOPERATIVE FINDINGS: See below PROCEDURE: The patient was taken the preop holding area to the main operating room where LMAC anesthesia was induced. She was placed in the left lateral semirecumbent position oral mouthpiece inserted. Appropriate level of LMAC anesthesia induced. Surgical plan and surgical timeout were conducted. Flexible adult pediatric colonoscope was advanced through the oropharynx, through the esophagus into the small gastric pouch and then into the jejunum. Findings were consistent with a Aleksey-en-Y gastrojejunostomy. The scope was then advanced all the way to the helped, 160 cm of scope into the jejunum. There was no evidence of clot, bleeding, tumor, marginal ulcer, or any pathology. At no point did we see any bile. I slowly withdrew the scope from 160 cm of advancement out of the jejunum. I did not see the anticipated jejunojejunostomy. The scope was withdrawn back through the gastric pouch and again there was no evidence of ulcer. The scope was brought back through the esophagus and no pathology seen here. Scope was withdrawn to the patient's oropharynx. She was then placed in the extreme left lateral decubitus position need to chest. Rectal exam was performed. There were external and internal hemorrhoids, edematous but not thrombosed. The flexible adult colonoscope was advanced through the anal rectal canal all the way to the cecum. There were cueva scattered diverticulosis but no evidence of diverticular bleeding. There was a moderate amount of liquid watery green low in fat aspirated easily. There was no evidence of fresh blood, clot, or active bleeding. There are small flecks of old blood only. The scope was withdrawn from the cecum all the way through the colon checking the mucosa as best could be done with the reasonable bowel prep. Note was drawn from the love ent's rectum. She tolerated the procedure well. Impression: No definable source of GI bleeding in the esophagus, gastric pouch or Aleksey-en-Y jejunal limb; afferent limb and bypass stomach not; no obvious source of bleeding in the colon; patient may have bled from diverticulosis. Plan: Supportive therapy: Transfuse as needed; reconsult surgery if patient bleeds.
[2020-04-12] MEDS: ATORVASTATIN CALCIUM 20 MG TABLET PO SCH (21:23)
[2020-04-12] MEDS: MELATONIN 5 MG TABLET PO PRN (21:29)
[2020-04-13 06:46] LABS: HEMATOCRIT 27.4 % (36.0-47.0); MEAN CORPUSCULAR HGB CONC 32.8 g/dL (32.0-36.0); MEAN CORPUSCULAR VOLUME 76 fl (80-97); PLATELET COUNT 166 10^3/uL (150-450); WHITE BLOOD COUNT 4.6 10^3/uL (4.0-10.5)
[2020-04-13 07:04] LABS: ANION GAP 11 (5-19); BLOOD UREA NITROGEN 14 mg/dL (7-20); CALCIUM 8.9 mg/dL (8.4-10.2); CARBON DIOXIDE 21 mmol/L (22-30); CHLORIDE 110 mmol/L (98-107); GLUCOSE 72 mg/dL (75-110); POTASSIUM 4.4 mmol/L (3.6-5.0)
[2020-04-13] MEDS: MORPHINE SULFATE 10 MG/ML INJ IV PRN (08:47)
[2020-04-13] MEDS: METHOCARBAMOL 750 MG TABLET PO SCH ×2 (10:27→14:01)
[2020-04-13] MEDS: LISINOPRIL 10 MG TABLET PO SCH (10:27)
[2020-04-13] MEDS: PANTOPRAZOLE SODIUM 40 MG VIAL IV SCH (10:27)
--- NOTE | 2020-04-13 15:23 | PDOC DISCHARGE SUMMARY ---
Impression - Admit/DC Date/PCP Admission Date/Primary Care Provider: 04/10/20 22:23 HOLLI THOMAS MD Discharge Date: 04/13/20 - Discharge Diagnosis (1) Anemia Is this a current diagnosis for this admission?: Yes (2) GI bleeding Is this a current diagnosis for this admission?: Yes (3) Hyperlipidemia Is this a current diagnosis for this admission?: Yes (4) Hypertension Is this a current diagnosis for this admission?: Yes (5) Obesity Is this a current diagnosis for this admission?: Yes (6) External hemorrhoids Is this a current diagnosis for this admission?: Yes (7) Gastric bypass status for obesity Is this a current diagnosis for this admission?: Yes (8) Numbness and tingling of left arm and leg Is this a current diagnosis for this admission?: Yes (9) Pain, dental Is this a current diagnosis for this admission?: Yes - Additional Information Resuscitation Status: Full Code Discharge Diet: As Tolerated Discharge Activity: Activity As Tolerated, Balance Activity w/Rest Referrals: HOLLI THOMAS MD [Primary Care Provider] - Follow up as needed Prescriptions: Mecobalamin [B12 Active] 1,000 mcg PO DAILY #30 tab.chew Omeprazole 40 mg PO DAILY #30 capsule. Multivitamin [Tab-A-Wilma] 1 each PO DAILY #30 tablet Home Medications: Atorvastatin Calcium [Lipitor 20 mg Tablet] 20 mg PO QHS 04/11/20 Hydrochlorothiazide [Hydrodiuril 25 mg Tablet] 25 mg PO QAM 04/11/20 Lisinopril [Zestril] 40 mg PO DAILY 04/11/20 Methocarbamol [Robaxin 750 mg Tablet] 750 mg PO TID 04/11/20 Mecobalamin [B12 Active] 1,000 mcg PO DAILY #30 tab.chew 04/13/20 Multivitamin [Tab-A-Wilma] 1 each PO DAILY #30 tablet 04/13/20 Omeprazole 40 mg PO DAILY #30 capsule. 04/13/20 History of Present Illiness History of Present Illness: Per Previous Physician: "As per admitting physician notes FABI KAUR is a 60 year old female with a history of hypertension, hyperlipidemia, chronic anemia since 2005 likely from duodenal ulcer and chronic gastritis presents today to ER after having 3 episodes of lightheadedness since waking up this morning. She reports feeling very tired when waking up and was lightheaded when trying to help her grandchildren. The lightheadedness was worse when she tried to stood up and she had 3 episodes of fainting since this morning which she describes as " I almost passed out" but denies total loss of consciousness, fall, head injury, nausea, vomiting, hematemesis or hematochezia. She states that she has been having greenish stool for the past few weeks. She takes meloxicam for joint and gum pain. She says she had an appointment to see her GI doctor but her schedule was canceled because of Covid pandemic. She denies fever, cough, chest pain, palpitation, shortness of breath, leg swelling." Hospital Course Hospital Course: Per Previous Physician: "As per admitting physician notes FABI KAUR is a 60 year old female with a history of hypertension, hyperlipidemia, chronic anemia since 2005 likely from duodenal ulcer and chronic gastritis presents today to ER after having 3 episodes of lightheadedness since waking up this morning. She reports feeling very tired when waking up and was lightheaded when trying to help her grandchildren. The lightheadedness was worse when she tried to stood up and she had 3 episodes of fainting since this morning which she describes as " I almost passed out" but denies total loss of consciousness, fall, head injury, nausea, vomiting, hematemesis or hematochezia. She states that she has been having greenish stool for the past few weeks. She takes meloxicam for joint and gum pain. She says she had an appointment to see her GI doctor but her schedule was canceled because of Covid pandemic. She denies fever, cough, chest pain, palpitation, shortness of breath, leg swelling. 04/11/2020. On my encounter patient currently resting in bed in no apparent distress, waiting for her endoscopy, patient is stating that she is not taking supplemental vitamins and also using Mobic for her arthritis, denies any chest pain, nausea, vomiting, shortness of breath or any urinary symptoms. 04/12/2020. No acute events overnight. Unfortunately patient's hemoglobin is still dropping however she denies any hemoptysis, hematemesis, nosebleed or melena. Patient has not had a bowel movement since admission. Probably low hemoglobin is hemodilution, patient is scheduled to undergo upper and lower GI endoscopy today. Denies any fever, chills, nausea, vomiting." Upper and lower endoscopy did not reveal a bleeding source. I recommended the patient follow-up with her outpatient GI physician to discuss possibility of advanced endoscopy for visualization of gastric bypass area that was not visualized on upper or lower endoscopy. If all else fails, she may need to inquire about having a general surgeon perform a laparoscopic exploratory surgery into the bypassed area. This would of course be a very invasive last resort assuming a general surgeon would be willing to do it. She is started on appropriate vitamins for gastric bypass. She is not iron deficient. Per general surgery endoscopy report: "Impression: No definable source of GI bleeding in the esophagus, gastric pouch or Aleksey-en-Y jejunal limb; afferent limb and bypass stomach not; no obvious source of bleeding in the colon; patient may have bled from diverticulosis. Plan: Supportive therapy: Transfuse as needed; reconsult surgery if patient bleeds." Per Previous Physician: "(1) acute GI bleedingresolved Qualifiers: GI bleed type/associated pathology: unspecified gastrointestinal hemorrhage type Qualified Code(s): K92.2 - Gastrointestinal hemorrhage, unspecified Is this a current diagnosis for this admission?: Yes Plan: Mild drop in hemoglobin likely hemodelusional. Denies any acute bleeding. History of gastric bypass and duodenal ulcer and external hemorrhoids. 03/12/2018. Upper GI endoscopy gastrojejunal healed ulcer. Biopsy negative for dysplasia, malignancy, Helicobacter pylori. Patient also takes Mobic for her arthritis. Presented with episodes of presyncope H&H on presentation was 27.3/8.7 Occult stool blood test positive Status post 2 PRBC transfusion. Surgery consulted. Pending upper and lower GI endoscopy. Continue IV PPIs, monitor H&H, vitals and volume status. (2) Hyperlipidemia Qualifiers: Hyperlipidemia type: unspecified Qualified Code(s): E78.5 - Hyperlipidemia, unspecified Is this a current diagnosis for this admission?: Yes Plan: Diet and lifestyle modification recommended. Resume home meds. Outpatient PCP follow-up. (3) Hypertension Qualifiers: Hypertension type: essential hypertension Qualified Code(s): I10 - Essential (primary) hypertension Is this a current diagnosis for this admission?: Yes Plan: Presented with hypotension and syncope due to GI bleed. Antihypertensives on hold. Resume once appropriate. Monitor volume status and adjust meds as needed. (4) Anemiastable Qualifiers: Anemia type: iron deficiency Is this a current diagnosis for this admission?: Yes Plan: Acute on chronic iron deficiency anemia. B12 iron deficiency anemia is a possibility as patient history of gastric bypass not taking supplemental vitamins. Presented with severe symptomatic anemia from GI loss H&H 8.7/27.3 on admission. Status post 2 PRBC transfusion. Monitor H&H. Serum iron, ferritin and percent saturation WNL. Folic acid and B12 WNL. Given history of gastric bypass patient will need supplemental B12 and other multivitamins. Started on B12 and multivitamin outpatient. (5) Obesity Qualifiers: Obesity type: due to excess calories Body mass index: BMI 32.0-32.9 Is this a current diagnosis for this admission?: Yes Plan: Status post gastric bypass. Hemoglobin A1c 4.2%. TSH WNL. Diet and lifestyle modification recommended. " Physical Exam Vital Signs: Temp Pulse Resp BP Pulse Ox 97.3 F 64 18 130/75 H 100 04/13/20 12:23 04/13/20 14:00 04/13/20 12:23 04/13/20 12:23 04/13/20 12:23 Intake & Output 04/12/20 04/13/20 04/14/20 06:59 06:59 06:59 Intake Total 4320 2850 Output Total 1900 0 Balance 2420 2850 Weight 88.1 kg 87.2 kg General appearance: PRESENT: no acute distress, obese, well-developed, well- nourished Head exam: PRESENT: atraumatic, normocephalic Eye exam: PRESENT: conjunctiva pink, scleral icterus Mouth exam: PRESENT: moist Respiratory exam: PRESENT: clear to auscultation luis. ABSENT: rales, rhonchi, wheezes Cardiovascular exam: PRESENT: RRR. ABSENT: diastolic murmur, rubs, systolic murmur GI/Abdominal exam: PRESENT: normal bowel sounds, soft. ABSENT: distended, guarding, mass, organolmegaly, rebound, tenderness Rectal exam: PRESENT: deferred Extremities exam: ABSENT: pedal edema Neurological exam: PRESENT: alert, awake, oriented to person, oriented to place, oriented to time, oriented to situation Psychiatric exam: PRESENT: appropriate affect, normal mood Skin exam: PRESENT: dry, intact, warm Results Laboratory Results: WBC 4.6 10^3/uL (4.0-10.5) 04/13/20 06:10 RBC 3.60 10^6/uL (3.72-5.28) L 04/13/20 06:10 Hgb 9.0 g/dL (12.0-15.5) L 04/13/20 06:10 Hct 27.4 % (36.0-47.0) L 04/13/20 06:10 MCV 76 fl (80-97) L 04/13/20 06:10 MCH 25.0 pg (27.0-33.4) L 04/13/20 06:10 MCHC 32.8 g/dL (32.0-36.0) 04/13/20 06:10 RDW 19.0 % (11.5-14.0) H 04/13/20 06:10 Plt Count 166 10^3/uL (150-450) 04/13/20 06:10 Lymph % (Auto) 40.3 % (13-45) 04/12/20 05:45 [place] % (Auto) 8.5 % (3-13) 04/12/20 05:45 Eos % (Auto) 4.4 % (0-6) 04/12/20 05:45 Baso % (Auto) 1.2 % (0-2) 04/12/20 05:45 Reticulocyte # 0.078 10^6/uL (0.028-0.122) 04/11/20 12:09 Absolute Neuts (auto) 2.2 10^3/uL (1.7-8.2) 04/12/20 05:45 Absolute Lymphs (auto) 1.9 10^3/uL (0.5-4.7) 04/12/20 05:45 Absolute Monos (auto) 0.4 10^3/uL (0.1-1.4) 04/12/20 05:45 Absolute Eos (auto) 0.2 10^3/uL (0.0-0.6) 04/12/20 05:45 Absolute Basos (auto) 0.1 10^3/uL (0.0-0.2) 04/12/20 05:45 Seg Neutrophils % 45.6 % (42-78) 04/12/20 05:45 Retic Count (auto) 1.93 % (0.66-2.85) 04/11/20 12:09 Sodium 141.7 mmol/L (137-145) 04/13/20 06:10 Potassium 4.4 mmol/L (3.6-5.0) 04/13/20 06:10 Chloride 110 mmol/L (98-107) H 04/13/20 06:10 Carbon Dioxide 21 mmol/L (22-30) L 04/13/20 06:10 Anion Gap 11 (5-19) 04/13/20 06:10 BUN 14 mg/dL (7-20) 04/13/20 06:10 Creatinine 0.84 mg/dL (0.52-1.25) 04/13/20 06:10 Est GFR ( Amer) > 60 (>60) 04/13/20 06:10 Est GFR (MDRD) Non-Af > 60 (>60) 04/13/20 06:10 Glucose 72 mg/dL (75-110) L 04/13/20 06:10 POC Glucose 121 mg/dL (70-110) H 04/12/20 21:14 Hemoglobin A1c % 4.4 % (4.7-6.0) L 04/12/20 05:45 Calcium 8.9 mg/dL (8.4-10.2) 04/13/20 06:10 Magnesium 1.9 mg/dL (1.6-2.3) 04/13/20 06:10 Iron 385.6 ug/dL (37-170) H 04/11/20 12:09 TIBC 456 ug/dL (250-450) H 04/11/20 12:09 % Saturation 85 % 04/11/20 12:09 Ferritin 16.50 ng/mL (11.1-264.0) 04/11/20 12:09 Total Bilirubin 0.3 mg/dL (0.2-1.3) 04/10/20 18:38 Direct Bilirubin 0.3 mg/dL (0.0-0.4) 04/10/20 18:38 Neonat Total Bilirubin Not Reportable 04/10/20 18:38 Neonat Direct Bilirubin Not Reportable 04/10/20 18:38 Neonat Indirect Bili Not Reportable 04/10/20 18:38 AST 21 U/L (14-36) 04/10/20 18:38 ALT 11 U/L (<35) 04/10/20 18:38 Alkaline Phosphatase 84 U/L (38-126) 04/10/20 18:38 Creatine Kinase 69 U/L (30-135) 04/10/20 18:38 CK-MB (CK-2) 0.92 ng/mL (<4.55) 04/10/20 18:38 Troponin I < 0.012 ng/mL 04/10/20 18:38 Total Protein 6.8 g/dL (6.3-8.2) 04/10/20 18:38 Albumin 4.2 g/dL (3.5-5.0) 04/10/20 18:38 Triglycerides 199 mg/dL (<150) H 04/12/20 05:45 Cholesterol 102.15 mg/dL (0-200) 04/12/20 05:45 LDL Cholesterol Direct 41 mg/dL (<100) 04/12/20 05:45 VLDL Cholesterol 39.8 mg/dL (10-31) H 04/12/20 05:45 HDL Cholesterol 22 mg/dL (>40) L 04/12/20 05:45 Vitamin B12 271.0 pg/mL (239-931) 04/11/20 12:09 Vitamin B12 281.0 pg/mL (239-931) 04/11/20 12:09 Vitamin D 25-Hydroxy 13.7 ng/mL (14.7-68.3) L 04/12/20 05:45 Folate 4.94 ng/mL (>2.76) 04/11/20 12:09 TSH 2.78 uIU/mL (0.47-4.68) 04/12/20 05:45 Urine Color STRAW 04/10/20 20:15 Urine Appearance CLEAR 04/10/20 20:15 Urine pH 5.0 (5.0-9.0) 04/10/20 20:15 Ur Specific [place] 1.011 04/10/20 20:15 Urine Protein NEGATIVE mg/dL (NEGATIVE) 04/10/20 20:15 Urine Glucose (UA) NEGATIVE mg/dL (NEGATIVE) 04/10/20 20:15 Urine Ketones NEGATIVE mg/dL (NEGATIVE) 04/10/20 20:15 Urine Blood NEGATIVE (NEGATIVE) 04/10/20 20:15 Urine Nitrite NEGATIVE (NEGATIVE) 04/10/20 20:15 Urine Bilirubin NEGATIVE (NEGATIVE) 04/10/20 20:15 Urine Urobilinogen NEGATIVE mg/dL (<2.0) 04/10/20 20:15 Ur Leukocyte Esterase NEGATIVE (NEGATIVE) 04/10/20 20:15 Urine WBC (Auto) 0 /HPF 04/10/20 20:15 Urine RBC (Auto) 0 /HPF 04/10/20 20:15 U Hyaline Cast (Auto) 2 /LPF 04/10/20 20:15 Urine Mucus (Auto) RARE /LPF 04/10/20 20:15 Urine Ascorbic Acid NEGATIVE (NEGATIVE) 04/10/20 20:15 POC Stool Occult Blood POSITIVE (NEGATIVE) 04/10/20 21:05 SARS-CoV-2 (PCR) NEGATIVE (NEGATIVE) 04/11/20 15:30 Blood Type A POSITIVE 04/10/20 18:38 Blood Type Confirm A POSITIVE 04/10/20 21:17 Antibody Screen NEGATIVE 04/10/20 18:38 Crossmatch See Detail 04/10/20 18:38 04/10/20 18:38 CK-MB (CK-2) 0.92 Troponin I < 0.012 Impressions: Abdomen/Pelvis CT 04/10/20 20:46 IMPRESSION: Significant hard stool within the colon distally with fecal impaction within the rectum. No high-grade obstruction. No extravasation of contrast is identified. Bilateral hydronephrosis. Symmetric nephrograms and excretion is seen arguing against a high-grade obstruction current examination. ADDENDUM: Prior CT February 05, 2018 has been retrieved. The left-sided hydronephrosis was present on that examination.. It is progressive from prior. The right-sided hydronephrosis is new from prior. The 5 sites heart may be partly due to distention of the urinary bladder Plan Plan of Treatment: Follow-up with PCP Follow-up with GI Time Spent: Greater than 30 Minutes Stroke Is this a Stroke Patient?: No Acute Heart Failure Is this a Heart Failure Patient?: No
[2020-04-13 15:37] VITALS: BP 103/53
== END 2020-04-13 16:19 | disposition home or self-care (01) | DRG 812 ==
LOC: ER 18:14 → EH 22:23 → 3S 23:32
PROVIDERS: ADMIT Student in an Organized Health Care Education/Training Program; ATTEND Internal Medicine
PROC: 30233N1 Transfusion of Nonautologous Red Blood Cells into Peripheral Vein, Percutaneous Approach (ICD-10-PCS; principal; 2020-04-10)
PROC: 0WJP8ZZ Inspection of Gastrointestinal Tract, Via Natural or Artificial Opening Endoscopic Approach (ICD-10-PCS; 2020-04-12)
PROC: 0DJD8ZZ Inspection of Lower Intestinal Tract, Via Natural or Artificial Opening Endoscopic (ICD-10-PCS; 2020-04-12 17:00)
DX: D50.8 Other iron deficiency anemias (principal); K92.2 Gastrointestinal hemorrhage, unspecified; R55 Syncope and collapse; D64.9 Anemia, unspecified; K57.90 Diverticulosis of intestine, part unspecified, without perforation or abscess without bleeding; E78.00 Pure hypercholesterolemia, unspecified; I10 Essential (primary) hypertension; E03.9 Hypothyroidism, unspecified; G43.909 Migraine, unspecified, not intractable, without status migrainosus; K64.4 Residual hemorrhoidal skin tags; E66.9 Obesity, unspecified; F17.210 Nicotine dependence, cigarettes, uncomplicated; Z20.828 Contact with and (suspected) exposure to other viral communicable diseases; Z98.84 Bariatric surgery status; Z68.32 Body mass index [BMI] 32.0-32.9, adult
CPT/HCPCS: 36415; 36430; 43235; 45378; 74177; 80048; 80053; 80061; 81001; 813; 82270; 82306; 82550; 82553; 82607; 82728; 82746; 82962; 83036; 83540; 83550; 83735; 84443; 84484; 85025; 85027; 85045; 86850; 86900; 86901; 86920; 87635; 93005; 93010; 96361; 96374; 96375; 99140; 99285; C9113; C9803; J0171; J1610; J2270; J2405; J2704; J3490; J7030; J7042; J7050; J7120; P9016; S0028